=== PATIENT | female | born 1940 | race Two or more races ===

== ENCOUNTER 2020-04-09 15:42 | Inpatient (IN) ==
--- NOTE | 2020-04-09 16:10 | ERNOTE ---
Dyspnea - General Presenting Symptoms: shortness of breath Time Seen by Provider: 04/09/20 15:56 Source: patient, [facility] records Exam Limitations: no limitations - Immun/Allergies/Home Medications Immunizations: IMMUNIZATION HX Immunizations Up to Date Yes History of Influenza Vaccine Yes Hx Pneumococcal Vaccination No Allergies/Adverse Reactions: Allergies Penicillins Allergy (Unknown, Verified 04/09/20 15:55) [facility]- unknown allergy pneumococcal vaccine Allergy (Unknown, Verified 04/09/20 15:55) [facility]- unknown allergy Home Medications: HOME MEDICATIONS acetaminophen 325 mg tablet 650 mg PO Q6H PRN #0.1 tab 04/02/20 [Last Taken Unknown] albuterol sulfate 90 mcg/actuation aerosol inhaler 2 inh IH Q4H PRN #0.1 g 04/02/20 [Last Taken Unknown] aspirin 81 mg tablet,delayed release 81 mg PO DAILY #0.1 tab 04/02/20 [Last Taken Unknown] bisacodyl 10 mg rectal suppository 10 mg [place] DAILY PRN #0.1 ea 04/02/20 [Last Taken Unknown] budesonide-formoterol HFA 160 mcg-4.5 mcg/actuation aerosol inhaler 2 puff IH BID #0.1 g 04/02/20 [Last Taken Unknown] cholecalciferol (vitamin D3) 250 mcg (10,000 unit) capsule 10,000 unit PO DAILY #0.1 cap 04/02/20 [Last Taken Unknown] folic acid 1 mg tablet 1 mg PO DAILY #0.1 tab 04/02/20 [Last Taken Unknown] melatonin 3 mg tablet 3 mg PO HS PRN #0.1 tab 04/02/20 [Last Taken Unknown] metoprolol tartrate 50 mg tablet 50 mg PO BID #0.1 tab 04/02/20 [Last Taken Unknown] pantoprazole 40 mg tablet,delayed release 40 mg PO DAILY #0.1 tab 04/02/20 [Last Taken Unknown] Furosemide [Lasix] 40 mg PO DAILY 04/09/20 [Last Taken Unknown] - History of Present Illness Narrative: Patient brought by EMS from [facility] with complaint of shortness of breath. Reports that the patient's shortness of breath started yesterday, worsening today. 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 Absent: cough Cardiology: Present: chest pain - pressure, edema Genitourinary: Absent: frequency, dysuria Musculoskeletal: Absent: back pain, muscle pain Skin: Absent: rash Neurological: Present: headache - occasonally, as is usual for her Endocrine: Absent: excessive sweating Medical History (Last Reviewed 04/09/20 @ 16:04 by Lalito Johnson DO) Solitary pulmonary nodule (Acute) Generalized enlarged lymph nodes (Acute) Localized enlarged lymph nodes (Acute) Tachycardia (Acute) Mastodynia (Acute) Unspecified asthma, uncomplicated (Acute) Other cardiomyopathies (Acute) Morbid (severe) obesity due to excess calories (Acute) Secondary hyperparathyroidism, not elsewhere classified (Acute) Polycythemia vera (Acute) Acute and chronic respiratory failure with hypoxia (Acute) Unspecified diastolic (congestive) heart failure (Acute) Malignant neoplasm of upper lobe, right bronchus or lung (Acute) Left ventricular failure, unspecified (Acute) Chronic myeloproliferative disease (Acute) Thrombocytopenia (Acute) Pneumonia (Acute) Adenocarcinoma (Acute) lung, right upper lobe Adenopathy (Acute) Benign hypertension (Acute) CHF (congestive heart failure) (Acute) CKD (chronic kidney disease) stage 3, GFR 30-59 ml/min (Acute) Hilar adenopathy (Acute) Iron deficiency anemia (Acute) Morbidly obese (Acute) Osteoarthritis (Acute) Proteinuria (Acute) Vitamin D deficiency (Acute) Visual hallucinations (Chronic) Disoriented (Chronic) Mild cognitive disorder (Chronic) Schizoid personality disorder (Chronic) Persistent mood disorder (Chronic) Alzheimer disease (Chronic) Surgical History: Surgical History (Last Reviewed 04/09/20 @ 16:04 by Lalito Johnson DO) History of tonsillectomy and adenoidectomy (Resolved) Onset Date: Unknown History of knee surgery (Resolved) Onset Date: Unknown bilateral knee replacement History of cardiac catheterization (Resolved) Onset Date: ~04/2017 Family History: Family History (Last Reviewed 04/09/20 @ 16:04 by Lalito Johnson DO) Father CAD (coronary artery disease) Mother CAD (coronary artery disease) Kidney disease Social History: (Last Reviewed 04/09/20 @ 16:04 by Lalito Johnson DO) Social History: [facility]: Yes [facility] comment: [facility] Marital status: Single Physical Exam - Physical Exam General Appearance: Present: wd/wn, alert, no apparent distress Head Exam: Present: normal inspection, no evidence of injury Neck: Present: normal inspection, nontender Respiratory: Present: no respiratory distress, normal breath sounds, lungs clear Cardiovascular/Chest: Present: regular rate, rhythm, extra beats, systolic murmur - 4/6 soft Gastrointestinal/Abdominal: Present: normal bowel sounds, nontender, nondistended Extremity Exam: Present: normal inspection, extremity edema - 3+ bilateral LE Neurological Exam: Present: alert, oriented, normal mood/affect, no motor/ sensory deficits Skin Exam: Present: warm/dry Progress - Results and Orders Patient's Lab Results:: I have reviewed the patient's lab results. Results and Orders: Laboratory Tests 04/09/20 04/09/20 04/09/20 16:17 16:17 16:17 WBC 14.3 H Hgb 8.4 L Hct 27.4 L Plt Count 456 H Sodium 141 Potassium 4.2 Chloride 105 BUN 19 Creatinine 1.29 Random Glucose 103 Lactic Acid, Venous 0.8 Calcium 8.4 Total Bilirubin 0.5 AST 18 ALT 11 L Alkaline Phosphatase 85 Troponin I Less than 0.017 B-Natriuretic Peptide 5730 H SARS-CoV-2 (PCR) 04/09/20 17:14 WBC Hgb Hct Plt Count Sodium Potassium Chloride BUN Creatinine Random Glucose Lactic Acid, Venous Calcium Total Bilirubin AST ALT Alkaline Phosphatase Troponin I B-Natriuretic Peptide SARS-CoV-2 (PCR) Not detected - Vital Signs Vital Signs: Vital Signs 04/09/20 15:42 Temperature 36.6 C Pulse Rate 106 H Respiratory Rate 38 H Blood Pressure 143/83 O2 Sat by Pulse Oximetry 90 L - EKG EKG #1 EKG: supraventricular tachycardia - sinus, premature ventricular contraction EKG read: Interp. by me - X-Ray X-Ray #1 X-Ray: chest Interpretation: Reviewed by me X-ray Comments: Findings: Diffuse bilateral multifocal airspace consolidation right upper lobe worse than the remaining lung pittman. Findings consistent with multifocal pneumonia. Correlate for Covid status. No pleural effusion or pneumothorax. Cardiac silhouette and pulmonary vasculature are normal for technique. The o sseous structures demonstrate degenerative changes of the spine and shoulders. IMPRESSION: DIFFUSE BILATERAL MULTIFOCAL PNEUMONIA MOST PRONOUNCED IN THE RIGHT UPPER LOBE Electronically signed by Bo Jack D.O. - Progress/Reassessment Chief Complaint: Dyspnea Progress Note-Subjective: 04/09/20 19:[address] Martinez she agrees with admit she requests DuoNeb treatments every 6 and Levaquin for pneumonia. Departure Clinical Impression: Pneumonia Qualifiers: Pneumonia type: due to unspecified organism Laterality: right Lung location: upper lobe of lung Qualified Code(s): J18.9 - Pneumonia, unspecified organism CHF (congestive heart failure) Qualifiers: Heart failure type: systolic Heart failure chronicity: acute on chronic Qualified Code(s): I50.23 - Acute on chronic systolic (congestive) heart failure - Departure Disposition: Still a patient Condition: Fair
[2020-04-09 16:22] LABS: Hematocrit 27.4 % (37.0-47.0); Hemoglobin 8.4 gm/dL (12.5-16.0); Mean Corpuscular Hemoglobin 30.7 pg (27-31); Mean Corpuscular Hgb Conc 30.7 g/dl (32-36); Mean Platelet Volume 9.2 fl (8-12.5); Platelet Count 456 K/mm3 (150-450); Red Blood Count 2.74 M/mm3 (4.2-5.4); White Blood Count 14.3 K/mm3 (4.0-10.5)
[2020-04-09 16:27] LABS: Total Cells Counted 100
[2020-04-09 16:43] LABS: ALT 11 U/L (19-67); AST 18 U/L (0-48); Albumin * 2.1 gm/dl (3.4-5.0); Alkaline Phosphatase * 85 U/L (50-170); Anion Gap 9.1 mmol/L (6.8-13.8); BNP * 5730 pg/mL (5-550); BUN/Creatinine Ratio 14.7 (9.0-21.6); Bilirubin, Total 0.5 mg/dL (0.0-1.1); Blood Urea Nitrogen 19 mg/dL (3-23); Ca. Corrected For Albumin 9.6 mg/dL (8.4-10.2); Calcium * 8.4 mg/dL (7.9-10.9); Carbon Dioxide 31.1 mmol/L (24-32.6); Chloride 105 mmol/L (97-106); Glucose * 103 mg/dL (70-110); Potassium 4.2 mmol/L (3.4-4.6); Sodium 141 mmol/L (132-142); Total Protein 6.2 gm/dL (6.2-8.2); Troponin I Less than 0.017 ng/mL (0.00-0.10)
[2020-04-09 17:04] LABS: Atypical (Reactive) Lymph 11 % (0-2); Band 3 % (0-2.0); Basophil 1 % (0-1); Eosinophil 2 % (0-3); Lymphocyte 23 % (20-51); Monocyte 1 % (0-9); Neutrophil 59 % (42-75); Neutrophil # 8.4 K/mm3 (1.3-6.0)
[2020-04-09 17:06] LABS: Giant Platelets Trace; Hypochromia 1+; Platelet Estimate Increased (NORMAL); Polychromasia 1+
[2020-04-09 17:07] LABS: Poikilocytosis Trace
[2020-04-09] MEDS ORDERED: FUROSEMIDE 10 MG/ML VIAL IV ONE ×2 (18:41→21:05)
[2020-04-09] MEDS ORDERED: ALBUTEROL SULFATE/IPRATROPIUM 3 ML NEBU IH ONE (18:59)
[2020-04-09] MEDS ORDERED: LEVOFLOXACIN IN DEXTROSE 5 % 500 MG/100 ML BAG IV SCH (19:00)
[2020-04-09] MEDS ORDERED: guaiFENesin 100 MG/5 ML SYRUP PO PRN (20:02)
[2020-04-09] MEDS ORDERED: MELATONIN 3,000 MCG TABLET PO PRN (20:03)
[2020-04-09] MEDS ORDERED: BISACODYL 10 MG SUPP.RECT RC PRN (20:03)
[2020-04-09] MEDS ORDERED: ALBUTEROL SULFATE 200 PUFF INHALER IH PRN (20:03)
[2020-04-09] MEDS ORDERED: FUROSEMIDE 10 MG/ML VIAL IV SCH (20:15)
[2020-04-09] MEDS: METOPROLOL TARTRATE 50 MG TABLET PO SCH (20:43)
[2020-04-09] MEDS: FOLIC ACID 1 MG TABLET PO SCH (20:43)
[2020-04-09] MEDS: ENOXAPARIN SODIUM 40 MG/0.4 ML SYRG SC SCH (20:44)
[2020-04-09] MEDS: PANTOPRAZOLE SODIUM 20 MG TABLET.DR PO SCH (20:44)
--- NOTE | 2020-04-09 21:05 | HP ---
Chief Complaint - Chief Complaint Date of Service: 04/09/20 Time of Service: 20:23 Chief Complaint: I have shortness of breath and swollen feet since yesterday History of Present Illness: 80-year-old female with past medical history of morbid obesity, CHF, hypertension, CKD 3, bronchial asthma, dementia, lung cancer, recurrent pneumonia who was evaluated in the ER after the patient was brought in by EMS from the [facility] for worsening dyspnea and tachypnea that started yesterday afternoon. Patient reports she was recently transferred to the [facility] from the rehab facility in [place] for fdc care. She reports since arriving at the Center there has been confusion with her medications and she has not been giving her routine dose of Lasix. As a result she developed significant pedal edema and describes heaviness and swelling in her lower extremities. She also reports that she has been having difficulty breathing but thought she was getting better until yesterday afternoon when she was noted to have significant tachypnea by nursing staff. She reports being restarted on her Lasix yesterday and was given a dose which she thought would help with her symptoms but instead of getting better she got worse. Patient was found to be hypoxic with oxygen saturation below 90 so EMS was called and she was transported to the ER. Once in the ER she was found to be persistently tachypneic and hypoxic so she was placed on oxygen by nasal cannula, the patient was also treated with a dose of Lasix and a breathing treatment. Chest x-ray revealed a multifocal pneumonia so she was also started on IV antibiotics. The patient had a bout of pneumonia back in February and was treated with antibiotics and she subsequently improved. She denies any fever chills or body ache and says the majority of her symptoms involves her breathing and the swelling in her feet. Patient was tested for COVID-19 but was found to be negative. Medical History (Last Reviewed 04/09/20 @ 16:04 by Lalito Johnson DO) Solitary pulmonary nodule (Acute) Generalized enlarged lymph nodes (Acute) Localized enlarged lymph nodes (Acute) Tachycardia (Acute) Mastodynia (Acute) Unspecified asthma, uncomplicated (Acute) Other cardiomyopathies (Acute) Morbid (severe) obesity due to excess calories (Acute) Secondary hyperparathyroidism, not elsewhere classified (Acute) Polycythemia vera (Acute) Acute and chronic respiratory failure with hypoxia (Acute) Unspecified diastolic (congestive) heart failure (Acute) Malignant neoplasm of upper lobe, right bronchus or lung (Acute) Left ventricular failure, unspecified (Acute) Chronic myeloproliferative disease (Acute) Thrombocytopenia (Acute) Pneumonia (Acute) Adenocarcinoma (Acute) lung, right upper lobe Adenopathy (Acute) Benign hypertension (Acute) CHF (congestive heart failure) (Acute) CKD (chronic kidney disease) stage 3, GFR 30-59 ml/min (Acute) Hilar adenopathy (Acute) Iron deficiency anemia (Acute) Morbidly obese (Acute) Osteoarthritis (Acute) Proteinuria (Acute) Vitamin D deficiency (Acute) Visual hallucinations (Chronic) Disoriented (Chronic) Mild cognitive disorder (Chronic) Schizoid personality disorder (Chronic) Persistent mood disorder (Chronic) Alzheimer disease (Chronic) Surgical History: Surgical History (Last Reviewed 04/09/20 @ 16:04 by Lalito Johnson DO) History of tonsillectomy and adenoidectomy (Resolved) Onset Date: Unknown History of knee surgery (Resolved) Onset Date: Unknown bilateral knee replacement History of cardiac catheterization (Resolved) Onset Date: ~04/2017 Family History: Family History (Last Reviewed 04/09/20 @ 16:04 by Lalito Johnson DO) Father CAD (coronary artery disease) Mother CAD (coronary artery disease) Kidney disease Social History: (Last Reviewed 04/09/20 @ 16:04 by Lalito Johnson DO) Social History: [facility]: Yes fci comment: [facility] Marital status: Single Peds Patient Hx - Developmental: No Pertinent Hx Peds Patient Hx - Medical: No Pertinent Hx Peds Patient Hx - Cardiac/Respiratory: No Pertinent Hx Peds Patient Hx - Surgical: No Surgical History Patient History - Cancer: Lung Review Of Systems (GEN) - Review of Systems Generalized/Overall Review: Present: Fatigue EENTM: Present: No Symptoms Reported Respiratory: Present: Shortness of Breath Cardiac: Present: Edema Abdominal: Present: No Symptoms Reported Genitourinary: Present: No Symptoms Reported Musculoskeletal: Present: No Symptoms Reported Neurological: Present: No Symptoms Reported Skin: Present: No Symptoms Reported Endocrine: Present: No Symptoms Reported Immunizations: IMMUNIZATION HX Immunizations Up to Date Yes History of Influenza Vaccine Yes Hx Pneumococcal Vaccination No Allergies/Adverse Reactions: Allergies Allergy/AdvReac Type Severity Reaction Status Date / Time Penicillins Allergy Unknown [facility]- Verified 04/09/20 15:55 unknown allergy pneumococcal vaccine Allergy Unknown [facility]- Verified 04/09/20 15:55 unknown allergy Home Medications: HOME MEDICATIONS acetaminophen 325 mg tablet 650 mg PO Q6H PRN #0.1 tab 04/02/20 [Last Taken Unknown] albuterol sulfate 90 mcg/actuation aerosol inhaler 2 inh IH Q4H PRN #0.1 g 04/02/20 [Last Taken Unknown] aspirin 81 mg tablet,delayed release 81 mg PO DAILY #0.1 tab 04/02/20 [Last Taken Unknown] bisacodyl 10 mg rectal suppository 10 mg [place] DAILY PRN #0.1 ea 04/02/20 [Last Taken Unknown] budesonide-formoterol HFA 160 mcg-4.5 mcg/actuation aerosol inhaler 2 puff IH BID #0.1 g 04/02/20 [Last Taken Unknown] cholecalciferol (vitamin D3) 250 mcg (10,000 unit) capsule 10,000 unit PO DAILY #0.1 cap 04/02/20 [Last Taken Unknown] folic acid 1 mg tablet 1 mg PO DAILY #0.1 tab 04/02/20 [Last Taken Unknown] melatonin 3 mg tablet 3 mg PO HS PRN #0.1 tab 04/02/20 [Last Taken Unknown] metoprolol tartrate 50 mg tablet 50 mg PO BID #0.1 tab 04/02/20 [Last Taken Unknown] pantoprazole 40 mg tablet,delayed release 40 mg PO DAILY #0.1 tab 04/02/20 [Last Taken Unknown] Furosemide [Lasix] 40 mg PO DAILY 04/09/20 [Last Taken Unknown] Exam - Exam Vital Signs: Vital Signs - Last Taken Temp 36.2 C 04/09/20 20:15 Pulse 117 H 04/09/20 20:15 Resp 22 H 04/09/20 20:15 BP 116/70 04/09/20 20:15 Pulse Ox 92 L 04/09/20 20:15 Constitutional: Present: Alert, Oriented x3, Cooperative, Well developed, Well nourished, No distress, Elderly, Morbidly obese ENT Exam: Present: normal ENT inspection, hearing grossly normal Eye Exam: bilateral eye: normal inspection, PERRL, EOMI Neck: Present: non-tender, full range of motion, supple, normal inspection, trachea midline Back Exam: Present: normal inspection, no CVA tenderness, no vertebral tenderness Breasts: Present: Exam deferred, Nontender Respiratory: Present: chest non-tender, accessory muscle use, wheezing - Expiratory wheezes at bases bilaterally Cardiovascular/Chest: Present: regular rate, rhythm, no chest tenderness, no murmur, no rub, JVD, edema Peripheral Pulses: dorsalis-pedis (R): 2+, dorsalis-pedis (L): 2+ Abdomen: Present: Normal bowel sounds, soft, nontender, nondistended, no rebound tenderness, no masses, obese /Rectal: Present: Exam deferred Extremity: Present: lower extremity edema, pedal edema - Jones 2+ Skin Exam: Present: normal color, warm/dry Lymphatic: Present: no adenopathy Neurologic: 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: 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 and emergency 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 II-XII nml as tested, no motor/sensory deficits, alert, normal mood/affect, oriented x 3 Appearance: Present: appropriate appearance, appropriate insight, neat, no memory impairment Eye contact: Present: cooperative, good eye contact, normal speech Thoughts: Present: normal thought pattern, no apparent hallucination Diagnostic Studies: Abnormal Lab Results 04/09/20 04/09/20 Range/Units 16:17 16:17 WBC 14.3 H (4.0-10.5) K/mm3 RBC 2.74 L (4.2-5.4) M/mm3 Hgb 8.4 L (12.5-16.0) gm/dL Hct 27.4 L (37.0-47.0) % MCHC 30.7 L (32-36) g/dl RDW 20.0 H (11.5-14.0) % Plt Count 456 H (150-450) K/mm3 Band Neuts % (Manual) 3 H (0-2.0) % Neutrophils # (Manual) 8.4 H (1.3-6.0) K/mm3 Atypic/Reactive Lymphs 11 H (0-2) % Platelet Estimate Increased H (NORMAL) Est GFR (Non-Af Amer) 42 L (60-130) mL/min ALT 11 L (19-67) U/L B-Natriuretic Peptide 5730 H (5-550) pg/mL Albumin 2.1 L (3.4-5.0) gm/dl Laboratory Results WBC 14.3 K/mm3 (4.0-10.5) H 04/09/20 16:17 RBC 2.74 M/mm3 (4.2-5.4) L 04/09/20 16:17 Hgb 8.4 gm/dL (12.5-16.0) L 04/09/20 16:17 Hct 27.4 % (37.0-47.0) L 04/09/20 16:17 MCV 100.0 fl (78-100) 04/09/20 16:17 MCH 30.7 pg (27-31) 04/09/20 16:17 MCHC 30.7 g/dl (32-36) L 04/09/20 16:17 RDW 20.0 % (11.5-14.0) H 04/09/20 16:17 Plt Count 456 K/mm3 (150-450) H 04/09/20 16:17 MPV 9.2 fl (8-12.5) 04/09/20 16:17 Neutrophils % (Manual) 59 % (42-75) 04/09/20 16:17 Band Neuts % (Manual) 3 % (0-2.0) H 04/09/20 16:17 Lymphocytes % (Manual) 23 % (20-51) 04/09/20 16:17 Monocytes % (Manual) 1 % (0-9) 04/09/20 16:17 Eosinophils % (Manual) 2 % (0-3) 04/09/20 16:17 Basophils % (Manual) 1 % (0-1) 04/09/20 16:17 Neutrophils # (Manual) 8.4 K/mm3 (1.3-6.0) H 04/09/20 16:17 Lymphocytes # (Manual) 3.3 k/mm3 (1.5-3.5) 04/09/20 16:17 Monocytes # (Manual) 0.1 k/mm3 (0.0-1.0) 04/09/20 16:17 Eosinophils # (Manual) 0.3 k/mm3 (0.0-0.7) 04/09/20 16:17 Basophils # (Manual) 0.1 k/mm3 (0.0-0.1) 04/09/20 16:17 Nucleated RBCs 1.0 % (0-1) 04/09/20 16:17 Atypic/Reactive Lymphs 11 % (0-2) H 04/09/20 16:17 Platelet Estimate Increased (NORMAL) H 04/09/20 16:17 Giant Platelets Trace 04/09/20 16:17 Polychromasia 1+ 04/09/20 16:17 Hypochromasia 1+ 04/09/20 16:17 Poikilocytosis Trace 04/09/20 16:17 Sodium 141 mmol/L (132-142) 04/09/20 16:17 Plasma Sodium 141 mmol/L (130-142) 04/09/20 16:17 Potassium 4.2 mmol/L (3.4-4.6) 04/09/20 16:17 Chloride 105 mmol/L (97-106) 04/09/20 16:17 Carbon Dioxide 31.1 mmol/L (24-32.6) 04/09/20 16:17 Anion Gap 9.1 mmol/L (6.8-13.8) 04/09/20 16:17 BUN 19 mg/dL (3-23) 04/09/20 16:17 Creatinine 1.29 mg/dL (0.4-1.4) 04/09/20 16:17 Est GFR (Non-Af Amer) 42 mL/min (60-130) L 04/09/20 16:17 BUN/Creatinine Ratio 14.7 (9.0-21.6) 04/09/20 16:17 Random Glucose 103 mg/dL (70-110) 04/09/20 16:17 Lactic Acid, Venous 0.8 mmol/L (0.4-2.0) 04/09/20 16:17 Calcium 8.4 mg/dL (7.9-10.9) 04/09/20 16:17 Calcium Adj for Albumin 9.6 mg/dL (8.4-10.2) 04/09/20 16:17 Total Bilirubin 0.5 mg/dL (0.0-1.1) 04/09/20 16:17 AST 18 U/L (0-48) 04/09/20 16:17 ALT 11 U/L (19-67) L 04/09/20 16:17 Alkaline Phosphatase 85 U/L (50-170) 04/09/20 16:17 Troponin I Less than 0.017 ng/mL (0.00-0.10) 04/09/20 16:17 B-Natriuretic Peptide 5730 pg/mL (5-550) H 04/09/20 16:17 Total Protein 6.2 gm/dL (6.2-8.2) 04/09/20 16:17 Albumin 2.1 gm/dl (3.4-5.0) L 04/09/20 16:17 SARS-CoV-2 (PCR) Not detected (NotDetected) 04/09/20 17:14 Assessment/Plan - Narrative Narrative: Px was admitted to [facility] for a diagnosis of acute multifocal pneumonia and decompensated CHF and hypoxia. She has been taken to room and is currently being treated with breathing treatments [id number] and IV antibiotics. The patient has been restarted on her Lasix which she will be receiving every 12 hours to address her CHF. We will keep her on oxygen and placed on a property assessment monitor for close monitoring. Currently she appears comfortable but is still noted to be tachypneic so we will give her a breathing treatment in order to address her respirations. - Assessment/Plan (1) Unspecified diastolic (congestive) heart failure Problem: Acute (2) Recurrent pneumonia Problem: Acute (3) Decompensated heart failure Problem: Acute (4) Hypoxia Problem: Acute (5) Tachypnea on examination Problem: Acute (6) Morbid (severe) obesity due to excess calories Problem: Acute (7) CKD (chronic kidney disease) stage 3, GFR 30-59 ml/min Problem: Acute (8) Iron deficiency anemia Problem: Acute (9) Morbidly obese Problem: Acute (10) Alzheimer disease Problem: Chronic
[2020-04-09] MEDS: ALBUTEROL SULFATE/IPRATROPIUM 3 ML NEBU IH SCH (23:22)
[2020-04-09] MEDS: FLUTICASONE PROPION/SALMETEROL 14 PUFF DISK.W.DEV IH SCH (23:27)
[2020-04-10] MEDS ORDERED: ALBUTEROL SULFATE/IPRATROPIUM 3 ML NEBU IH SCH (01:00)
[2020-04-10] MEDS: ALBUTEROL SULFATE/IPRATROPIUM 3 ML NEBU IH SCH ×2 (03:07→06:04)
[2020-04-10 06:32] LABS: Hematocrit 25.1 % (37.0-47.0); Mean Cell Volume 99.6 fl (78-100); Mean Corpuscular Hemoglobin 30.2 pg (27-31); Mean Corpuscular Hgb Conc 30.3 g/dl (32-36); Mean Platelet Volume 9.4 fl (8-12.5); Platelet Count 498 K/mm3 (150-450); Red Blood Count 2.52 M/mm3 (4.2-5.4); Red Cell Distribution Width 19.9 % (11.5-14.0)
[2020-04-10 06:37] LABS: Albumin * 1.9 gm/dl (3.4-5.0); Anion Gap 8.7 mmol/L (6.8-13.8); BUN/Creatinine Ratio 14.4 (9.0-21.6); Bilirubin, Total 0.5 mg/dL (0.0-1.1); Ca. Corrected For Albumin 9.9 mg/dL (8.4-10.2); Calcium * 8.5 mg/dL (7.9-10.9); Carbon Dioxide 31.9 mmol/L (24-32.6); Potassium 3.6 mmol/L (3.4-4.6); Total Protein 5.9 gm/dL (6.2-8.2)
[2020-04-10] MEDS ORDERED: FUROSEMIDE 10 MG/ML VIAL IV STA (07:03)
[2020-04-10 07:17] LABS: Hemoglobin 7.6 gm/dL (12.5-16.0); Total Cells Counted 100
[2020-04-10 07:19] LABS: Band 1 % (0-2.0); Basophil 2 % (0-1); Eosinophil 5 % (0-3); Immature Granulocyte 1 (0-1); Lymphocyte 19 % (20-51); Monocyte 15 % (0-9); Neutrophil 57 % (42-75); Neutrophil # 6.8 K/mm3 (1.3-6.0)
[2020-04-10 07:21] LABS: Ovalocytes Trace; Poikilocytosis Trace
[2020-04-10 07:22] LABS: Platelet Estimate Normal (NORMAL)
[2020-04-10] MEDS: FLUTICASONE PROPION/SALMETEROL 14 PUFF DISK.W.DEV IH SCH ×2 (07:36→19:56)
[2020-04-10] MEDS: PANTOPRAZOLE SODIUM 20 MG TABLET.DR PO SCH ×2 (07:37→20:05)
[2020-04-10] MEDS: FUROSEMIDE 10 MG/ML VIAL IV SCH ×2 (08:01→19:56)
--- NOTE | 2020-04-10 08:18 | PN ---
Subjective - Date and Time Seen Date: 04/10/20 Time: 06:50 Subjective Narrative: 80-year-old female with past medical history of morbid obesity, CHF (she does not remember her last echo), hypertension, CKD 3, bronchial asthma, dementia, lung cancer (2 spots removed from right lung two or three years ago, radiation, most recent chest CT clear of cancer), and recurrent pneumonia (most recently at [facility] last month)who was evaluated in the [facility] ER last night after the patient was brought in by EMS from the [facility] for worsening dyspnea and tachypnea that started 2 days ago. She was discharged from [facility] to [facility] for rehab about 3 weeks ago. Since arriving at the Center she says she hasn't been given her usual lasix because it wasn't on the [facility] discharge instructions. While at [facility] she developed bilateral lower leg edema. 2 days ago she was noted to have significant tachypnea by nursing staff. She was restarted on her Lasix yesterday and she thought it would help her symptoms, but instead of getting better she got worse. At no time did she have fever, chills or sweats. At the assisted she was hypoxic with oxygen saturation below 90 and labored breathing, so EMS was called and she was transported to the [facility] ER. In the ER she was found to be persistently tachypneic and hypoxic so she was placed on oxygen by nasal cannula. She was also treated with a dose of Lasix and a breathing treatment. Chest x-ray was consistent with a multifocal pneumonia so she was also started on IV Levaquin. She has not had much urine output following her IV dose of Lasix. Her physical exam this morning is more like CHF than pneumonia. Her ER BNP was over 5000. Her wbc count was slightly elevated at about 14,000. Her hgb in the ER was 8.4, identical to one about three weeks ago, but this morning it was 7.6. We will therefor watch her hgb more closely and start stools for OB. She was tested for COVID-19 in the [facility] ER yesterday but was found to be negative. This morning she says she feels about the same. Objective - Review of Systems Generalized/Overall Review: Reports: Weakness. Denies: Chills, Fever, Diaphoresis EENTM: Reports: No Symptoms Reported Respiratory: Reports: Shortness of Breath, Other - green. Denies: Cough Cardiac: Reports: Edema. Denies: Chest Pain Abdominal: Reports: No Symptoms Reported Genitourinary Symptoms: Reports: No Symptoms Reported Musculoskeletal Complaints: Reports: No Symptoms Reported Neurological: Denies: Anxiety, Depressed Skin: Reports: Bruising - cause unknown as reported by patient. Denies: Lesions, Rash Endocrine: Reports: Intolerance to Cold, Intolerance to Heat Misc: All systems neg except as marked - Vitals Vitals: Last Vital Signs Temp 36.7 C 04/10/20 07:19 Pulse 122 H 04/10/20 07:19 Resp 39 H 04/10/20 07:19 BP 122/68 04/10/20 07:19 Pulse Ox 93 04/10/20 07:19 - Abnormal Lab Findings Abnormal Lab Findings: Abnormal Lab Results 04/09/20 04/09/20 04/10/20 Range/Units 16:17 16:17 06:17 WBC 14.3 H 12.0 H (4.0-10.5) K/mm3 RBC 2.74 L 2.52 L (4.2-5.4) M/mm3 Hgb 8.4 L 7.6 L* (12.5-16.0) gm/dL Hct 27.4 L 25.1 L (37.0-47.0) % MCHC 30.7 L 30.3 L (32-36) g/dl RDW 20.0 H 19.9 H (11.5-14.0) % Plt Count 456 H 498 H (150-450) K/mm3 Band Neuts % (Manual) 3 H (0-2.0) % Lymphocytes % (Manual) 19 L (20-51) % Monocytes % (Manual) 15 H (0-9) % Eosinophils % (Manual) 5 H (0-3) % Basophils % (Manual) 2 H (0-1) % Neutrophils # (Manual) 8.4 H 6.8 H (1.3-6.0) K/mm3 Monocytes # (Manual) 1.8 H (0.0-1.0) k/mm3 Basophils # (Manual) 0.2 H (0.0-0.1) k/mm3 Nucleated RBCs 3.0 H (0-1) % Atypic/Reactive Lymphs 11 H (0-2) % Platelet Estimate Increased H (NORMAL) Est GFR (Non-Af Amer) 42 L (60-130) mL/min ALT 11 L (19-67) U/L B-Natriuretic Peptide 5730 H (5-550) pg/mL Total Protein (6.2-8.2) gm/dL Albumin 2.1 L (3.4-5.0) gm/dl 04/10/20 Range/Units 06:17 WBC (4.0-10.5) K/mm3 RBC (4.2-5.4) M/mm3 Hgb (12.5-16.0) gm/dL Hct (37.0-47.0) % MCHC (32-36) g/dl RDW (11.5-14.0) % Plt Count (150-450) K/mm3 Band Neuts % (Manual) (0-2.0) % Lymphocytes % (Manual) (20-51) % Monocytes % (Manual) (0-9) % Eosinophils % (Manual) (0-3) % Basophils % (Manual) (0-1) % Neutrophils # (Manual) (1.3-6.0) K/mm3 Monocytes # (Manual) (0.0-1.0) k/mm3 Basophils # (Manual) (0.0-0.1) k/mm3 Nucleated RBCs (0-1) % Atypic/Reactive Lymphs (0-2) % Platelet Estimate (NORMAL) Est GFR (Non-Af Amer) 41 L (60-130) mL/min ALT 9 L (19-67) U/L B-Natriuretic Peptide (5-550) pg/mL Total Protein 5.9 L (6.2-8.2) gm/dL Albumin 1.9 L (3.4-5.0) gm/dl - Exam Constitutional: Present: Alert, Oriented x3, Cooperative, Well developed, Other - mildly dyspneic at rest with nasal canula O2., Obese ENT Exam: Present: normal ENT inspection, hearing grossly normal Neck: Present: normal inspection. Absent: lymphadenopathy (R), lymphadenopathy (L), thyromegaly Breasts: Present: Exam deferred Respiratory: Present: rales - bilateral basilar rales. no rhonci and no wheezing. Cardiovascular/Chest: Present: regular rate, rhythm, no murmur, JVD, tachycardia, gallop/S3, edema - 2-3 + edema both lower legs Abdomen: Present: Normal bowel sounds, soft, nontender, nondistended, no hepatospenomegaly, no masses /Rectal: Present: Exam deferred Extremity: Present: lower extremity edema Skin Exam: Present: warm/dry, no cyanosis, other - upper and lower extremity brusing Lymphatic: Present: no adenopathy Neurologic: Present: normal mood/affect, oriented x 3 Appearance: Present: appropriate appearance, appropriate insight, no memory impairment Eye contact: Present: cooperative, good eye contact, normal speech Thoughts: Present: normal thought pattern Assessment/Plan - Problems/Diagnosis (1) CHF (congestive heart failure) Problem: Acute Qualifiers: Heart failure type: systolic Heart failure chronicity: acute on chronic Qualified Code(s): I50.23 - Acute on chronic systolic (congestive) heart failure Narrative: IV lasix, echo, monitor I&O and labs. clinically, has acute CHF, but CXR reported out as multifocal pneumonia. We will therefor also treat for pneumonia with Levaquin. (2) Hypoxia Problem: Acute Narrative: Supplemental O2 to keep O2 sat more than 90% (3) Pneumonia Problem: Acute Qualifiers: Pneumonia type: due to unspecified organism Laterality: bilateral Lung location: unspecified part of lung Qualified Code(s): J18.9 - Pneumonia, unspecified organism Narrative: minimally elevated wbc, no fever, chills or sweats. CXR reported as pneumonia. Will treat with Levofloxacin (4) Anemia Problem: Acute Qualifiers: Anemia type: unspecified type Qualified Code(s): D64.9 - Anemia, unspecified Narrative: possibly acute on chronic. Hgb yesterday 8.4, the same as three weeks ago. This morning 7.6 Will follow closely and do stool OB (5) Chronic respiratory failure with hypoxia Problem: Acute Narrative: O2 (6) Hypoalbuminemia Problem: Acute Narrative: nutritional supplements (7) Vitamin D deficiency Problem: Acute Narrative: start Vitamin D (8) Malignant neoplasm of upper lobe, right bronchus or lung Problem: Chronic Narrative: so far non recurrent. no immediate plans for this admission (9) BMI 39.0-39.9,adult Problem: Acute Narrative: in the future, consider NENA and/or Pickwickian syndrome.
[2020-04-10] MEDS: FOLIC ACID 1 MG TABLET PO SCH (08:20)
[2020-04-10] MEDS: ASPIRIN 81 MG TABLET.DR PO SCH (08:20)
[2020-04-10] MEDS: METOPROLOL TARTRATE 50 MG TABLET PO SCH (08:21)
[2020-04-10] MEDS ORDERED: CHOLECALCIFEROL 5,000 UNIT TABLET PO SCH (09:00)
--- NOTE | 2020-04-10 10:18 | PN ---
Subjective - Date and Time Seen Date: 04/10/20 Time: 10:14 Subjective Narrative: reviewed records from [facility] from Feb 2020 including H&P, Discharge Summary, EKGs and Echo report. echo shows ONLY mild to moderate TR. nothing else. will back off dose of lasix. increases the chance of pneumonia as the cause for her current problems, although her BNP WAS over 5000. time required for record review 20 minutes. Objective - Vitals Vitals: Last Vital Signs Temp 36.7 C 04/10/20 07:19 Pulse 109 H 04/10/20 08:55 Resp 39 H 04/10/20 07:19 BP 109/53 04/10/20 09:04 Pulse Ox 93 04/10/20 07:25 - Abnormal Lab Findings Abnormal Lab Findings: Abnormal Lab Results 04/09/20 04/09/20 04/10/20 Range/Units 16:17 16:17 06:17 WBC 14.3 H 12.0 H (4.0-10.5) K/mm3 RBC 2.74 L 2.52 L (4.2-5.4) M/mm3 Hgb 8.4 L 7.6 L* (12.5-16.0) gm/dL Hct 27.4 L 25.1 L (37.0-47.0) % MCHC 30.7 L 30.3 L (32-36) g/dl RDW 20.0 H 19.9 H (11.5-14.0) % Plt Count 456 H 498 H (150-450) K/mm3 Band Neuts % (Manual) 3 H (0-2.0) % Lymphocytes % (Manual) 19 L (20-51) % Monocytes % (Manual) 15 H (0-9) % Eosinophils % (Manual) 5 H (0-3) % Basophils % (Manual) 2 H (0-1) % Neutrophils # (Manual) 8.4 H 6.8 H (1.3-6.0) K/mm3 Monocytes # (Manual) 1.8 H (0.0-1.0) k/mm3 Basophils # (Manual) 0.2 H (0.0-0.1) k/mm3 Nucleated RBCs 3.0 H (0-1) % Atypic/Reactive Lymphs 11 H (0-2) % Platelet Estimate Increased H (NORMAL) Est GFR (Non-Af Amer) 42 L (60-130) mL/min ALT 11 L (19-67) U/L B-Natriuretic Peptide 5730 H (5-550) pg/mL Total Protein (6.2-8.2) gm/dL Albumin 2.1 L (3.4-5.0) gm/dl 04/10/20 Range/Units 06:17 WBC (4.0-10.5) K/mm3 RBC (4.2-5.4) M/mm3 Hgb (12.5-16.0) gm/dL Hct (37.0-47.0) % MCHC (32-36) g/dl RDW (11.5-14.0) % Plt Count (150-450) K/mm3 Band Neuts % (Manual) (0-2.0) % Lymphocytes % (Manual) (20-51) % Monocytes % (Manual) (0-9) % Eosinophils % (Manual) (0-3) % Basophils % (Manual) (0-1) % Neutrophils # (Manual) (1.3-6.0) K/mm3 Monocytes # (Manual) (0.0-1.0) k/mm3 Basophils # (Manual) (0.0-0.1) k/mm3 Nucleated RBCs (0-1) % Atypic/Reactive Lymphs (0-2) % Platelet Estimate (NORMAL) Est GFR (Non-Af Amer) 41 L (60-130) mL/min ALT 9 L (19-67) U/L B-Natriuretic Peptide (5-550) pg/mL Total Protein 5.9 L (6.2-8.2) gm/dL Albumin 1.9 L (3.4-5.0) gm/dl Assessment/Plan - Problems/Diagnosis (1) CHF (congestive heart failure) Problem: Resolved Qualifiers: Heart failure type: systolic Heart failure chronicity: acute on chronic Qualified Code(s): I50.23 - Acute on chronic systolic (congestive) heart failure Narrative: echo from Feb 2020 shows only mild to moderate TR. NORMAL systolic function. will back off Lasix dose. (2) Hypoxia Problem: Acute (3) Pneumonia Problem: Acute Qualifiers: Pneumonia type: due to unspecified organism Laterality: bilateral Lung location: unspecified part of lung Qualified Code(s): J18.9 - Pneumonia, unspecified organism (4) Anemia Problem: Acute Qualifiers: Anemia type: unspecified type Qualified Code(s): D64.9 - Anemia, unspecified (5) Chronic respiratory failure with hypoxia Problem: Acute (6) Hypoalbuminemia Problem: Acute (7) Vitamin D deficiency Problem: Acute (8) Malignant neoplasm of upper lobe, right bronchus or lung Problem: Chronic (9) BMI 39.0-39.9,adult Problem: Acute (10) Tricuspid regurgitation Problem: Chronic Qualifiers: Cardiac valve disease etiology: etiology unspecified Qualified Code(s): I07.1 - Rheumatic tricuspid insufficiency Narrative: mild to moderate Echo [facility] Feb 2020. systolic function NORMAL
[2020-04-10] MEDS: LEVOFLOXACIN 750 MG TABLET PO SCH (10:57)
--- NOTE | 2020-04-10 11:11 | PN ---
Subjective - Date and Time Seen Date: 04/10/20 Time: 11:08 Objective - Vitals Vitals: Last Vital Signs Temp 36.5 C 04/10/20 10:37 Pulse 106 H 04/10/20 10:37 Resp 34 H 04/10/20 10:37 BP 122/63 04/10/20 10:37 Pulse Ox 94 04/10/20 10:37 - Abnormal Lab Findings Abnormal Lab Findings: Abnormal Lab Results 04/09/20 04/09/20 04/10/20 Range/Units 16:17 16:17 06:17 WBC 14.3 H 12.0 H (4.0-10.5) K/mm3 RBC 2.74 L 2.52 L (4.2-5.4) M/mm3 Hgb 8.4 L 7.6 L* (12.5-16.0) gm/dL Hct 27.4 L 25.1 L (37.0-47.0) % MCHC 30.7 L 30.3 L (32-36) g/dl RDW 20.0 H 19.9 H (11.5-14.0) % Plt Count 456 H 498 H (150-450) K/mm3 Band Neuts % (Manual) 3 H (0-2.0) % Lymphocytes % (Manual) 19 L (20-51) % Monocytes % (Manual) 15 H (0-9) % Eosinophils % (Manual) 5 H (0-3) % Basophils % (Manual) 2 H (0-1) % Neutrophils # (Manual) 8.4 H 6.8 H (1.3-6.0) K/mm3 Monocytes # (Manual) 1.8 H (0.0-1.0) k/mm3 Basophils # (Manual) 0.2 H (0.0-0.1) k/mm3 Nucleated RBCs 3.0 H (0-1) % Atypic/Reactive Lymphs 11 H (0-2) % Platelet Estimate Increased H (NORMAL) Est GFR (Non-Af Amer) 42 L (60-130) mL/min ALT 11 L (19-67) U/L B-Natriuretic Peptide 5730 H (5-550) pg/mL Total Protein (6.2-8.2) gm/dL Albumin 2.1 L (3.4-5.0) gm/dl 04/10/20 Range/Units 06:17 WBC (4.0-10.5) K/mm3 RBC (4.2-5.4) M/mm3 Hgb (12.5-16.0) gm/dL Hct (37.0-47.0) % MCHC (32-36) g/dl RDW (11.5-14.0) % Plt Count (150-450) K/mm3 Band Neuts % (Manual) (0-2.0) % Lymphocytes % (Manual) (20-51) % Monocytes % (Manual) (0-9) % Eosinophils % (Manual) (0-3) % Basophils % (Manual) (0-1) % Neutrophils # (Manual) (1.3-6.0) K/mm3 Monocytes # (Manual) (0.0-1.0) k/mm3 Basophils # (Manual) (0.0-0.1) k/mm3 Nucleated RBCs (0-1) % Atypic/Reactive Lymphs (0-2) % Platelet Estimate (NORMAL) Est GFR (Non-Af Amer) 41 L (60-130) mL/min ALT 9 L (19-67) U/L B-Natriuretic Peptide (5-550) pg/mL Total Protein 5.9 L (6.2-8.2) gm/dL Albumin 1.9 L (3.4-5.0) gm/dl Assessment/Plan - Problems/Diagnosis (1) CHF (congestive heart failure) Problem: Resolved Qualifiers: Heart failure type: systolic Heart failure chronicity: acute on chronic Qualified Code(s): I50.23 - Acute on chronic systolic (congestive) heart failure (2) Hypoxia Problem: Acute (3) Pneumonia Problem: Acute Qualifiers: Pneumonia type: due to unspecified organism Laterality: bilateral Lung location: unspecified part of lung Qualified Code(s): J18.9 - Pneumonia, unspecified organism (4) Anemia Problem: Acute Qualifiers: Anemia type: unspecified type Qualified Code(s): D64.9 - Anemia, unspecified (5) Chronic respiratory failure with hypoxia Problem: Acute (6) Hypoalbuminemia Problem: Acute (7) Vitamin D deficiency Problem: Acute (8) Malignant neoplasm of upper lobe, right bronchus or lung Problem: Chronic (9) BMI 39.0-39.9,adult Problem: Acute (10) Tricuspid regurgitation Problem: Chronic Qualifiers: Cardiac valve disease etiology: etiology unspecified Qualified Code(s): I07.1 - Rheumatic tricuspid insufficiency (11) (HFpEF) heart failure with preserved ejection fraction Problem: Chronic Qualifiers: Heart failure chronicity: acute on chronic Qualified Code(s): I50.33 - Acute on chronic diastolic (congestive) heart failure Narrative: echo 03/02 [facility] showed preserved left ventricular function. [facility] HFpEF risk calculator: 17% risk of dying in next 28 days, 55% risk in the next one year (12) Chronic myeloproliferative disease Problem: Chronic Narrative: this is the most likely reason for her anemia. we need to make sure she is followed by Hem/Onc
[2020-04-10] MEDS: DICLOFENAC SODIUM 100 APPL TUBE TP SCH ×3 (12:11→20:04)
--- NOTE | 2020-04-10 12:22 | PN ---
Subjective - Date and Time Seen Date: 04/10/20 Time: 12:20 Objective - Vitals Vitals: Last Vital Signs Temp 36.5 C 04/10/20 10:37 Pulse 106 H 04/10/20 10:37 Resp 34 H 04/10/20 10:37 BP 122/63 04/10/20 10:37 Pulse Ox 94 04/10/20 10:37 - Abnormal Lab Findings Abnormal Lab Findings: Abnormal Lab Results 04/09/20 04/09/20 04/10/20 Range/Units 16:17 16:17 06:17 WBC 14.3 H 12.0 H (4.0-10.5) K/mm3 RBC 2.74 L 2.52 L (4.2-5.4) M/mm3 Hgb 8.4 L 7.6 L* (12.5-16.0) gm/dL Hct 27.4 L 25.1 L (37.0-47.0) % MCHC 30.7 L 30.3 L (32-36) g/dl RDW 20.0 H 19.9 H (11.5-14.0) % Plt Count 456 H 498 H (150-450) K/mm3 Band Neuts % (Manual) 3 H (0-2.0) % Lymphocytes % (Manual) 19 L (20-51) % Monocytes % (Manual) 15 H (0-9) % Eosinophils % (Manual) 5 H (0-3) % Basophils % (Manual) 2 H (0-1) % Neutrophils # (Manual) 8.4 H 6.8 H (1.3-6.0) K/mm3 Monocytes # (Manual) 1.8 H (0.0-1.0) k/mm3 Basophils # (Manual) 0.2 H (0.0-0.1) k/mm3 Nucleated RBCs 3.0 H (0-1) % Atypic/Reactive Lymphs 11 H (0-2) % Platelet Estimate Increased H (NORMAL) Est GFR (Non-Af Amer) 42 L (60-130) mL/min ALT 11 L (19-67) U/L B-Natriuretic Peptide 5730 H (5-550) pg/mL Total Protein (6.2-8.2) gm/dL Albumin 2.1 L (3.4-5.0) gm/dl 04/10/20 Range/Units 06:17 WBC (4.0-10.5) K/mm3 RBC (4.2-5.4) M/mm3 Hgb (12.5-16.0) gm/dL Hct (37.0-47.0) % MCHC (32-36) g/dl RDW (11.5-14.0) % Plt Count (150-450) K/mm3 Band Neuts % (Manual) (0-2.0) % Lymphocytes % (Manual) (20-51) % Monocytes % (Manual) (0-9) % Eosinophils % (Manual) (0-3) % Basophils % (Manual) (0-1) % Neutrophils # (Manual) (1.3-6.0) K/mm3 Monocytes # (Manual) (0.0-1.0) k/mm3 Basophils # (Manual) (0.0-0.1) k/mm3 Nucleated RBCs (0-1) % Atypic/Reactive Lymphs (0-2) % Platelet Estimate (NORMAL) Est GFR (Non-Af Amer) 41 L (60-130) mL/min ALT 9 L (19-67) U/L B-Natriuretic Peptide (5-550) pg/mL Total Protein 5.9 L (6.2-8.2) gm/dL Albumin 1.9 L (3.4-5.0) gm/dl Assessment/Plan - Problems/Diagnosis (1) CHF (congestive heart failure) Problem: Resolved Qualifiers: Heart failure type: systolic Heart failure chronicity: acute on chronic Qualified Code(s): I50.23 - Acute on chronic systolic (congestive) heart failure (2) Hypoxia Problem: Acute (3) Pneumonia Problem: Acute Qualifiers: Pneumonia type: due to unspecified organism Laterality: bilateral Lung location: unspecified part of lung Qualified Code(s): J18.9 - Pneumonia, unspecified organism (4) Anemia Problem: Acute Qualifiers: Anemia type: unspecified type Qualified Code(s): D64.9 - Anemia, unspecified (5) Chronic respiratory failure with hypoxia Problem: Acute (6) Hypoalbuminemia Problem: Acute (7) Vitamin D deficiency Problem: Acute (8) Malignant neoplasm of upper lobe, right bronchus or lung Problem: Chronic (9) BMI 39.0-39.9,adult Problem: Acute (10) Tricuspid regurgitation Problem: Chronic Qualifiers: Cardiac valve disease etiology: etiology unspecified Qualified Code(s): I07.1 - Rheumatic tricuspid insufficiency (11) (HFpEF) heart failure with preserved ejection fraction Problem: Chronic Qualifiers: Heart failure chronicity: acute on chronic Qualified Code(s): I50.33 - Acute on chronic diastolic (congestive) heart failure (12) Chronic myeloproliferative disease Problem: Chronic (13) MSSA (methicillin susceptible Staphylococcus aureus) pneumonia Problem: Suspected Qualifiers: Laterality: bilateral Lung location: unspecified part of lung Qualified Code(s): J15.211 - Pneumonia due to Methicillin susceptible Staphylococcus aureus Narrative: In reviewing records, she had MSSA pneumonia which was treated in the hospital in [place] last month. There is no CXR showing complete resolution of the pneumonia. It is possible this admission is due to recurrent MSSA pneumonia.
[2020-04-10] MEDS: METOPROLOL TARTRATE 25 MG TABLET PO SCH ×2 (14:14→20:05)
[2020-04-10 14:30] LABS: Hematocrit 26.8 % (37.0-47.0); Hemoglobin 8.1 gm/dL (12.5-16.0); Mean Cell Volume 98.5 fl (78-100); Mean Corpuscular Hemoglobin 29.8 pg (27-31); Mean Corpuscular Hgb Conc 30.2 g/dl (32-36); Mean Platelet Volume 9.1 fl (8-12.5); Platelet Count 422 K/mm3 (150-450); Red Blood Count 2.72 M/mm3 (4.2-5.4); Red Cell Distribution Width 19.9 % (11.5-14.0); White Blood Count 13.3 K/mm3 (4.0-10.5)
[2020-04-10 14:40] LABS: Anion Gap 11.7 mmol/L (6.8-13.8); BUN/Creatinine Ratio 15.2 (9.0-21.6); Calcium * 8.5 mg/dL (7.9-10.9); Carbon Dioxide 30.3 mmol/L (24-32.6); Estimated Creat Clear 32.4
--- NOTE | 2020-04-10 16:00 | PN ---
Progess Note - Interim Date: 04/10/20 Time: 16:00 Narrative: 04/10/20 16:00 reviewed this afternoon's EKG. sinus tach with PVCs. no treatment change at present time.
[2020-04-10] MEDS: ENOXAPARIN SODIUM 40 MG/0.4 ML SYRG SC SCH (19:57)
[2020-04-10] MEDS: NYSTATIN 15 APPL BTL TP SCH (20:04)
[2020-04-11 06:33] LABS: Hematocrit 25.3 % (37.0-47.0); Mean Cell Volume 99.2 fl (78-100); Mean Corpuscular Hemoglobin 29.8 pg (27-31); Mean Platelet Volume 9.5 fl (8-12.5); Platelet Count 377 K/mm3 (150-450); Red Blood Count 2.55 M/mm3 (4.2-5.4); Red Cell Distribution Width 19.9 % (11.5-14.0); White Blood Count 11.8 K/mm3 (4.0-10.5)
[2020-04-11 06:51] LABS: Anion Gap 7.8 mmol/L (6.8-13.8); BUN/Creatinine Ratio 14.1 (9.0-21.6); Bilirubin, Total 0.5 mg/dL (0.0-1.1); Ca. Corrected For Albumin 9.8 mg/dL (8.4-10.2); Calcium * 8.5 mg/dL (7.9-10.9); Carbon Dioxide 34.7 mmol/L (24-32.6); Potassium 3.5 mmol/L (3.4-4.6)
[2020-04-11] MEDS: PANTOPRAZOLE SODIUM 20 MG TABLET.DR PO SCH ×2 (07:01→21:06)
[2020-04-11] MEDS: FLUTICASONE PROPION/SALMETEROL 14 PUFF DISK.W.DEV IH SCH ×2 (07:02→19:11)
[2020-04-11 07:07] LABS: Hemoglobin 7.6 gm/dL (12.5-16.0)
[2020-04-11 07:09] LABS: Total Cells Counted 100
--- NOTE | 2020-04-11 07:11 | PN ---
Subjective - Date and Time Seen Date: 04/11/20 Time: 06:35 Subjective Narrative: 80-year-old female with past medical history of morbid obesity, CHF (last echo a month ago -- mild to mod TR an HFpEF), hypertension, CKD 3, bronchial asthma, dementia, lung cancer (2 spots removed from right lung two or three years ago, radiation, most recent chest CT clear of cancer), and recurrent pneumonia (most recently at [facility] last month -- MSSA)who was evaluated in the [facility] ER 2 nights ago after the patient was brought in by EMS from the [facility] for worsening dyspnea and tachypnea that started 3 days ago. She was discharged from [facility] to [facility] for rehab about 3 weeks ago. Since arriving at the Center she said she hadn't been given her usual lasix because it wasn't on the [facility] discharge instructions. While at [facility] she developed bilateral lower leg edema. 3 days ago she was noted to have significant tachypnea by nursing staff. She was restarted on her Lasix 2 days ago and she thought it would help her symptoms, but instead of getting better she got worse. At no time did she have fever, chills or sweats. At the halfway she was hypoxic with oxygen saturation below 90 and labored breathing, so EMS was called and she was transported to the [facility] ER. In the ER she was found to be persistently tachypneic and hypoxic so she was placed on oxygen by nasal cannula. She was also treated with a dose of IV Lasix and a breathing treatment. Chest x-ray was consistent with multifocal pneumonia so she was also started on IV Levaquin. She didn't have much urine output following her IV dose of Lasix, but has had significant output and weight loss since yesterday morning. Her physical exam this morning shows improvement and she feels better. She was able to walk to her room door and back to her bed twice yesterday. Her ER BNP was over 5000. Her wbc count was slightly elevated at about 14,000. Her ER Covid test was negative. Her hgb in the ER was 8.4, identical to one about three weeks ago, yesterday morning 7.6 and yesterday afternoon 8.1. Labs from this morning are still pending. She has chronic myelodysplasia, which explains her low hgb. I communicated with her transportation services representative in [place] yesterday who said her hydroxyurea had been held and he would like to see a CBC around the week of . Objective - Review of Systems Generalized/Overall Review: Reports: Weakness, Weight loss EENTM: Reports: No Symptoms Reported Respiratory: Reports: Other - green Cardiac: Reports: Edema. Denies: Chest Pain, Palpitations Abdominal: Reports: No Symptoms Reported Genitourinary Symptoms: Reports: No Symptoms Reported Musculoskeletal Complaints: Reports: No Symptoms Reported Neurological: Reports: No Symptoms Reported Skin: Reports: Bruising - resolving. Denies: Lesions, Rash Endocrine: Reports: Intolerance to Cold, Intolerance to Heat Misc: All systems neg except as marked - Vitals Vitals: Last Vital Signs Temp 36.4 C 04/11/20 02:00 Pulse 103 H 04/11/20 02:06 Resp 26 H 04/11/20 02:00 BP 101/52 04/11/20 02:00 Pulse Ox 96 04/11/20 02:00 - Abnormal Lab Findings Abnormal Lab Findings: Abnormal Lab Results 04/10/20 04/10/20 04/10/20 Range/Units 06:17 14:24 14:24 WBC 12.0 H 13.3 H (4.0-10.5) K/mm3 RBC 2.52 L 2.72 L (4.2-5.4) M/mm3 Hgb 7.6 L* 8.1 L (12.5-16.0) gm/dL Hct 25.1 L 26.8 L (37.0-47.0) % MCHC 30.3 L 30.2 L (32-36) g/dl RDW 19.9 H 19.9 H (11.5-14.0) % Plt Count 498 H (150-450) K/mm3 Lymphocytes % (Manual) 19 L (20-51) % Monocytes % (Manual) 15 H (0-9) % Eosinophils % (Manual) 5 H (0-3) % Basophils % (Manual) 2 H (0-1) % Neutrophils # (Manual) 6.8 H (1.3-6.0) K/mm3 Monocytes # (Manual) 1.8 H (0.0-1.0) k/mm3 Basophils # (Manual) 0.2 H (0.0-0.1) k/mm3 Nucleated RBCs 3.0 H (0-1) % Creatinine 1.45 H (0.4-1.4) mg/dL Est GFR (Non-Af Amer) 37 L (60-130) mL/min - Exam Constitutional: Present: Alert, Oriented x3, Cooperative, Well developed, No distress, Obese ENT Exam: Present: normal ENT inspection, hearing grossly normal Neck: Present: normal inspection. Absent: lymphadenopathy (R), lymphadenopathy (L), thyromegaly Breasts: Present: Exam deferred Respiratory: Present: lungs clear, no respiratory distress Cardiovascular/Chest: Present: regular rate, rhythm, no gallop, no JVD, no murmur, edema - edema has significantly improved Abdomen: Present: Normal bowel sounds, soft, nontender, nondistended, no hepatospenomegaly, no masses, obese /Rectal: Present: Exam deferred Extremity: Present: normal capillary refill, pedal edema Skin Exam: Present: normal color, warm/dry, no cyanosis, other - bruising Lymphatic: Present: no adenopathy Neurologic: Present: normal mood/affect, oriented x 3 Appearance: Present: appropriate appearance, appropriate insight, neat, no memory impairment Eye contact: Present: cooperative, good eye contact, normal speech Thoughts: Present: normal thought pattern Assessment/Plan - Problems/Diagnosis (1) Pneumonia Problem: Acute Qualifiers: Pneumonia type: due to unspecified organism Laterality: bilateral Lung location: unspecified part of lung Qualified Code(s): J18.9 - Pneumonia, unspecified organism Narrative: Had MSSA in [place] last month. Improving. Will continue levaquin. Possibly ready for discharge on Tuesday. (2) MSSA (methicillin susceptible Staphylococcus aureus) pneumonia Problem: Suspected Qualifiers: Laterality: bilateral Lung location: unspecified part of lung Qualified Code(s): J15.211 - Pneumonia due to Methicillin susceptible Staphylococcus aureus Narrative: improving. continue Levaquin (3) CHF (congestive heart failure) Problem: Ruled-out Qualifiers: Heart failure type: systolic Heart failure chronicity: acute on chronic Qualified Code(s): I50.23 - Acute on chronic systolic (congestive) heart failure Narrative: I was able to review her recent echo yesterday afternoon. she has mild to mod TR and HFpEF. (4) Hypoxia Problem: Resolved Narrative: will wean O2 (5) Anemia Problem: Chronic Qualifiers: Anemia type: bone marrow failure Bone marrow failure anemia type: unspecified bone marrow failure Qualified Code(s): D61.9 - Aplastic anemia, unspecified Narrative: chronic myelodysplasia. will follow blood count. transportation services representative in [place], Dr. Carpio, would like to see a CBC from about the week of Apr 28 (6) Chronic respiratory failure with hypoxia Problem: Chronic (7) Hypoalbuminemia Problem: Chronic (8) Vitamin D deficiency Problem: Chronic (9) Malignant neoplasm of upper lobe, right bronchus or lung Problem: Chronic Narrative: had excision and radiation therapy several years ago. most recent chest CT clear of cancer. (10) BMI 39.0-39.9,adult Problem: Resolved Narrative: due to fluid loss BMI 37.1 this morning (11) Tricuspid regurgitation Problem: Chronic Qualifiers: Cardiac valve disease etiology: etiology unspecified Qualified Code(s): I07.1 - Rheumatic tricuspid insufficiency (12) (HFpEF) heart failure with preserved ejection fraction Problem: Chronic Qualifiers: Heart failure chronicity: acute on chronic Qualified Code(s): I50.33 - Acute on chronic diastolic (congestive) heart failure Narrative: has had excellent diuresis since yesterday morning. will decrease lasix dose to 60 mg once daily and later probably to 40 mg once daily (13) Chronic myeloproliferative disease Problem: Chronic Narrative: has been on hydroxyurea. followed by Dr. Carpio in [place]. med being held. followup CBC to Dr. Carpio about the week of Apr 28
[2020-04-11 07:24] LABS: Basophil 1 % (0-1); Eosinophil 2 % (0-3); Immature Granulocyte 4 (0-1); Lymphocyte 34 % (20-51); Monocyte 14 % (0-9); Neutrophil 45 % (42-75); Neutrophil # 5.3 K/mm3 (1.3-6.0)
[2020-04-11 07:25] LABS: Ovalocytes Trace; Platelet Estimate Normal (NORMAL); Poikilocytosis 1+; Polychromasia Trace
[2020-04-11 07:35] LABS: Anisocytosis 1+
[2020-04-11 07:38] LABS: Hypersegmented Polys Trace
[2020-04-11] MEDS ORDERED: FUROSEMIDE 10 MG/ML VIAL IV SCH (09:00)
[2020-04-11] MEDS: FOLIC ACID 1 MG TABLET PO SCH (09:21)
[2020-04-11] MEDS: ASPIRIN 81 MG TABLET.DR PO SCH (09:23)
[2020-04-11] MEDS: CHOLECALCIFEROL 5,000 UNIT TABLET PO SCH (09:23)
[2020-04-11] MEDS: METOPROLOL TARTRATE 25 MG TABLET PO SCH ×3 (09:24→21:05)
[2020-04-11] MEDS: NYSTATIN 15 APPL BTL TP SCH ×2 (09:24→21:04)
[2020-04-11] MEDS: DICLOFENAC SODIUM 100 APPL TUBE TP SCH ×4 (09:28→21:04)
[2020-04-11] MEDS: LEVOFLOXACIN 750 MG TABLET PO SCH (13:33)
[2020-04-11] MEDS: ENOXAPARIN SODIUM 40 MG/0.4 ML SYRG SC SCH (19:10)
[2020-04-11] MEDS: ACETAMINOPHEN 325 MG TABLET PO PRN (22:11)
[2020-04-12 06:08] LABS: Mean Cell Volume 98.3 fl (78-100); Mean Corpuscular Hemoglobin 29.8 pg (27-31); Mean Corpuscular Hgb Conc 30.3 g/dl (32-36); Mean Platelet Volume 9.3 fl (8-12.5); NRBC# 0.2 k/mm3 (0-1); Neutrophil # 4.9 K/mm3 (1.3-6.0); Neutrophil % 43.4 % (42-75.0); Platelet Count 345 K/mm3 (150-450); Red Blood Count 2.42 M/mm3 (4.2-5.4); Red Cell Distribution Width 19.8 % (11.5-14.0); White Blood Count 11.3 K/mm3 (4.0-10.5)
[2020-04-12 06:20] LABS: Anion Gap 8.2 mmol/L (6.8-13.8); BUN/Creatinine Ratio 15.5 (9.0-21.6); Calcium * 8.5 mg/dL (7.9-10.9); Carbon Dioxide 33.3 mmol/L (24-32.6); Estimated Creat Clear 25.9; Potassium 3.5 mmol/L (3.4-4.6)
[2020-04-12] MEDS: PANTOPRAZOLE SODIUM 20 MG TABLET.DR PO SCH ×2 (06:32→20:20)
[2020-04-12] MEDS: FLUTICASONE PROPION/SALMETEROL 14 PUFF DISK.W.DEV IH SCH ×2 (06:32→20:16)
[2020-04-12 06:49] LABS: Hematocrit 23.8 % (37.0-47.0); Hemoglobin 7.2 gm/dL (12.5-16.0)
[2020-04-12 06:50] LABS: Total Cells Counted 100
[2020-04-12 08:47] LABS: Atypical (Reactive) Lymph 10 % (0-2); Band 3 % (0-2.0); Lymphocyte 27 % (20-51); Monocyte 17 % (0-9); Neutrophil 43 % (42-75); Neutrophil # 4.9 K/mm3 (1.3-6.0); Platelet Estimate Normal (NORMAL)
[2020-04-12 08:50] LABS: Anisocytosis 2+
[2020-04-12] MEDS: DICLOFENAC SODIUM 100 APPL TUBE TP SCH ×4 (09:56→20:16)
[2020-04-12] MEDS: ASPIRIN 81 MG TABLET.DR PO SCH (09:56)
[2020-04-12] MEDS: METOPROLOL TARTRATE 25 MG TABLET PO SCH ×3 (09:57→20:17)
[2020-04-12] MEDS: FOLIC ACID 1 MG TABLET PO SCH (09:57)
[2020-04-12] MEDS: CHOLECALCIFEROL 5,000 UNIT TABLET PO SCH (09:58)
[2020-04-12] MEDS: NYSTATIN 15 APPL BTL TP SCH ×2 (09:59→20:20)
[2020-04-12] MEDS: LEVOFLOXACIN 750 MG TABLET PO SCH (10:04)
[2020-04-12] MEDS: ENOXAPARIN SODIUM 40 MG/0.4 ML SYRG SC SCH (20:16)
--- NOTE | 2020-04-12 23:50 | PN ---
Subjective - Date and Time Seen Date: 04/12/20 Time: 09:30 Subjective Narrative: Deborah reports feeling better, still using oxygen. Creatinine bumped to 1.8 today. No fever, chills, nausea, or vomiting. Objective - Vitals Vitals: Last Vital Signs Temp 36.5 C 04/12/20 23:01 Pulse 75 04/12/20 23:01 Resp 22 H 04/12/20 23:01 BP 97/53 04/12/20 23:01 Pulse Ox 90 L 04/12/20 23:01 - Abnormal Lab Findings Abnormal Lab Findings: Abnormal Lab Results 04/12/20 04/12/20 Range/Units 05:50 05:50 WBC 11.3 H (4.0-10.5) K/mm3 RBC 2.42 L (4.2-5.4) M/mm3 Hgb 7.2 L* (12.5-16.0) gm/dL Hct 23.8 L* (37.0-47.0) % MCHC 30.3 L (32-36) g/dl RDW 19.8 H (11.5-14.0) % Immature Gran % (Auto) 2.50 H (0.001-0.429) % Immature Gran # (Auto) 0.28 H (0.000-0.0310) K/mm3 Band Neuts % (Manual) 3 H (0-2.0) % Lymphocytes % 13.0 L (20-51) % Monocytes % 39.1 H (0.0-9) % Monocytes % (Manual) 17 H (0-9) % Lymphocytes # 1.47 L (1.5-3.5) k/mm3 Monocytes # 4.4 H (0.0-1.0) k/mm3 Monocytes # (Manual) 1.9 H (0.0-1.0) k/mm3 Nucleated RBCs 5.0 H (0-1) % Atypic/Reactive Lymphs 10 H (0-2) % Carbon Dioxide 33.3 H (24-32.6) mmol/L BUN 28 H (3-23) mg/dL Creatinine 1.81 H (0.4-1.4) mg/dL Est GFR (Non-Af Amer) 29 L (60-130) mL/min - Exam Constitutional: Present: Alert, Oriented x3, Cooperative Respiratory: Present: lungs clear, no respiratory distress, decreased breath so unds Cardiovascular/Chest: Present: regular rate, rhythm Abdomen: Present: Normal bowel sounds, soft, nontender, nondistended Assessment/Plan Plan Narrative: Continues to need oxygen, will continue to wean as able. Continue antibiotics. Creatinine is elevated today. No lasix today. Continue current fluid re strictions due to CHF, but if creatinine does not improve tomorrow may need to left fluid restrictions. - Problems/Diagnosis (1) Acute respiratory failure Problem: Acute Qualifiers: Respiratory failure complication: hypoxia Qualified Code(s): J96.01 - Acute respiratory failure with hypoxia (2) Pneumonia Problem: Acute Qualifiers: Pneumonia type: due to methicillin-sensitive Staphylococcus aureus (MSSA) Laterality: bilateral Lung location: unspecified part of lung Qualified Code(s): J15.211 - Pneumonia due to Methicillin susceptible Staphylococcus aureus (3) CKD (chronic kidney disease) stage 3, GFR 30-59 ml/min Problem: Acute
[2020-04-13] MEDS: ACETAMINOPHEN 325 MG TABLET PO PRN
[2020-04-13] MEDS: FLUTICASONE PROPION/SALMETEROL 14 PUFF DISK.W.DEV IH SCH ×2 (06:33→19:02)
[2020-04-13] MEDS: PANTOPRAZOLE SODIUM 20 MG TABLET.DR PO SCH ×2 (06:33→20:42)
[2020-04-13] MEDS: CHOLECALCIFEROL 5,000 UNIT TABLET PO SCH (08:57)
[2020-04-13] MEDS: FOLIC ACID 1 MG TABLET PO SCH (08:57)
[2020-04-13] MEDS: NYSTATIN 15 APPL BTL TP SCH ×2 (08:58→20:41)
[2020-04-13] MEDS: METOPROLOL TARTRATE 25 MG TABLET PO SCH ×3 (08:58→20:41)
[2020-04-13] MEDS: ASPIRIN 81 MG TABLET.DR PO SCH (08:58)
[2020-04-13] MEDS: DICLOFENAC SODIUM 100 APPL TUBE TP SCH ×4 (08:58→20:40)
[2020-04-13 10:05] LABS: Hematocrit 26.6 % (37.0-47.0); Hemoglobin 8.1 gm/dL (12.5-16.0); Mean Cell Volume 98.9 fl (78-100); Mean Corpuscular Hemoglobin 30.1 pg (27-31); Mean Corpuscular Hgb Conc 30.5 g/dl (32-36); Mean Platelet Volume 9.5 fl (8-12.5); Platelet Count 381 K/mm3 (150-450); Red Blood Count 2.69 M/mm3 (4.2-5.4); Red Cell Distribution Width 19.7 % (11.5-14.0); White Blood Count 13.1 K/mm3 (4.0-10.5)
[2020-04-13 10:08] LABS: Total Cells Counted 100
[2020-04-13 10:17] LABS: Albumin * 2.1 gm/dl (3.4-5.0); Anion Gap 6.9 mmol/L (6.8-13.8); BUN/Creatinine Ratio 15.7 (9.0-21.6); Bilirubin, Total 0.4 mg/dL (0.0-1.1); Ca. Corrected For Albumin 9.9 mg/dL (8.4-10.2); Calcium * 8.7 mg/dL (7.9-10.9); Carbon Dioxide 34.7 mmol/L (24-32.6); Potassium 3.6 mmol/L (3.4-4.6); Total Protein 6.2 gm/dL (6.2-8.2)
[2020-04-13] MEDS: LEVOFLOXACIN 750 MG TABLET PO SCH (10:32)
[2020-04-13 10:53] LABS: Anisocytosis 2+; Atypical (Reactive) Lymph 9 % (0-2); Band 3 % (0-2.0); Eosinophil 2 % (0-3); Lymphocyte 18 % (20-51); Monocyte 28 % (0-9); Neutrophil 40 % (42-75); Neutrophil # 5.2 K/mm3 (1.3-6.0); Platelet Estimate Normal (NORMAL)
--- NOTE | 2020-04-13 11:28 | PN ---
Subjective - Date and Time Seen Date: 04/13/20 Time: 10:00 Subjective Narrative: She reports feeling ok. Is on 1lpm of oxygen and 90-93%. Creatinine raised to 2 today. She denies fever, chills, nausea, and vomiting. She believes she could drink more fluids today. Objective - Vitals Vitals: Last Vital Signs Temp 36.6 C 04/13/20 10:00 Pulse 112 H 04/13/20 10:00 Resp 28 H 04/13/20 10:00 BP 102/53 04/13/20 10:00 Pulse Ox 93 04/13/20 10:00 - Abnormal Lab Findings Abnormal Lab Findings: Abnormal Lab Results 04/13/20 04/13/20 Range/Units 09:59 09:59 WBC 13.1 H (4.0-10.5) K/mm3 RBC 2.69 L (4.2-5.4) M/mm3 Hgb 8.1 L (12.5-16.0) gm/dL Hct 26.6 L (37.0-47.0) % MCHC 30.5 L (32-36) g/dl RDW 19.7 H (11.5-14.0) % Neutrophils % (Manual) 40 L (42-75) % Band Neuts % (Manual) 3 H (0-2.0) % Lymphocytes % (Manual) 18 L (20-51) % Monocytes % (Manual) 28 H (0-9) % Monocytes # (Manual) 3.7 H (0.0-1.0) k/mm3 Atypic/Reactive Lymphs 9 H (0-2) % Carbon Dioxide 34.7 H (24-32.6) mmol/L BUN 32 H (3-23) mg/dL Creatinine 2.04 H (0.4-1.4) mg/dL Est GFR (Non-Af Amer) 25 L (60-130) mL/min ALT 10 L (19-67) U/L Albumin 2.1 L (3.4-5.0) gm/dl - Exam Constitutional: Present: Alert, Oriented x3, Cooperative ENT Exam: Present: hearing grossly normal Cardiovascular/Chest: Present: regular rate, rhythm, no murmur Abdomen: Present: Normal bowel sounds, soft, nontender, nondistended Extremity: Present: lower extremity edema - 1+ Skin Exam: Present: no cyanosis Appearance: Present: appropriate appearance, appropriate insight Eye contact: Present: cooperative, good eye contact, normal speech Assessment/Plan Plan Narrative: Deborah is overall feeling well today. However renal function has worsened. She has not received in more lasix in the last two days but is on fluid restrictions due to CHF. I have removed fluid restrictions and encouraged her to drink more fluids today. Will hold off on IV fluids as she seems capable of increasing oral intake and I do not want to swing her back into CHF exacerbation. - Problems/Diagnosis (1) Acute respiratory failure Problem: Acute Qualifiers: Respiratory failure complication: hypoxia Qualified Code(s): J96.01 - Acute respiratory failure with hypoxia (2) Pneumonia Problem: Acute Qualifiers: Pneumonia type: due to methicillin-sensitive Staphylococcus aureus (MSSA) Laterality: bilateral Lung location: unspecified part of lung Qualified Code(s): J15.211 - Pneumonia due to Methicillin susceptible Staphylococcus aureus (3) Acute worsening of stage 3 chronic kidney disease Problem: Acute (4) CKD (chronic kidney disease) stage 3, GFR 30-59 ml/min Problem: Chronic
[2020-04-13] MEDS: ALBUTEROL SULFATE 2.5 MG/0.5 ML VIAL.NEB IH PRN (19:05)
[2020-04-13] MEDS: ENOXAPARIN SODIUM 40 MG/0.4 ML SYRG SC SCH (20:41)
[2020-04-14] MEDS: ALBUTEROL SULFATE 2.5 MG/0.5 ML VIAL.NEB IH PRN ×2 (04:33→19:49)
[2020-04-14] MEDS: PANTOPRAZOLE SODIUM 20 MG TABLET.DR PO SCH ×2 (07:15→20:34)
[2020-04-14] MEDS: FLUTICASONE PROPION/SALMETEROL 14 PUFF DISK.W.DEV IH SCH ×2 (07:15→18:52)
--- NOTE | 2020-04-14 07:15 | PN ---
Subjective - Date and Time Seen Date: 04/14/20 Time: 06:45 Subjective Narrative: Had more SOB last night. albuterol helped. here with pneumonia and HFpEF. over the weekend renal failure worsened. lasix stopped. still on antibiotics. incontinent of urine chronically. also a history of asthma. no labs ordered for this morning. still using nasal canula o2. weight stable. heart rate fairly well controlled at just about 100. Objective - Review of Systems Generalized/Overall Review: Reports: Weakness - didn't do well with ambulation over the weekend. EENTM: Reports: No Symptoms Reported Respiratory: Reports: Cough, Shortness of Breath Cardiac: Reports: Edema - chronic. no worse. (weight stable) Abdominal: Reports: No Symptoms Reported Genitourinary Symptoms: Reports: No Symptoms Reported Musculoskeletal Complaints: Reports: No Symptoms Reported Neurological: Reports: No Symptoms Reported Skin: Reports: Bruising Endocrine: Reports: No Symptoms Reported Misc: All systems neg except as marked - Vitals Vitals: Last Vital Signs Temp 37.3 C 04/14/20 06:29 Pulse 104 H 04/14/20 06:29 Resp 24 H 04/14/20 06:29 BP 119/57 04/14/20 06:29 Pulse Ox 90 L 04/14/20 04:33 - Abnormal Lab Findings Abnormal Lab Findings: Abnormal Lab Results 04/13/20 04/13/20 Range/Units 09:59 09:59 WBC 13.1 H (4.0-10.5) K/mm3 RBC 2.69 L (4.2-5.4) M/mm3 Hgb 8.1 L (12.5-16.0) gm/dL Hct 26.6 L (37.0-47.0) % MCHC 30.5 L (32-36) g/dl RDW 19.7 H (11.5-14.0) % Neutrophils % (Manual) 40 L (42-75) % Band Neuts % (Manual) 3 H (0-2.0) % Lymphocytes % (Manual) 18 L (20-51) % Monocytes % (Manual) 28 H (0-9) % Monocytes # (Manual) 3.7 H (0.0-1.0) k/mm3 Atypic/Reactive Lymphs 9 H (0-2) % Carbon Dioxide 34.7 H (24-32.6) mmol/L BUN 32 H (3-23) mg/dL Creatinine 2.04 H (0.4-1.4) mg/dL Est GFR (Non-Af Amer) 25 L (60-130) mL/min ALT 10 L (19-67) U/L Albumin 2.1 L (3.4-5.0) gm/dl - Exam Constitutional: Present: Alert, Oriented x3, Cooperative, Well developed, Obese ENT Exam: Present: normal ENT inspection, hearing grossly normal Neck: Absent: lymphadenopathy (R), lymphadenopathy (L), thyromegaly Breasts: Present: Exam deferred Respiratory: Present: other - increased work of breathing. tachypnea. n.c. o2. end expiratory squeaking. Cardiovascular/Chest: Present: regular rate, rhythm, no gallop, no murmur, JVD, edema - edema about the same as Tuesday Abdomen: Present: Normal bowel sounds, soft, nontender, nondistended, no hepatospenomegaly, no masses, obese /Rectal: Present: Exam deferred Extremity: Present: other - bilateral extremity edema, about the same Skin Exam: Present: warm/dry, other - resolving bruising Lymphatic: Present: no adenopathy Neurologic: Present: normal mood/affect Appearance: Present: appropriate appearance, appropriate insight, neat, no memory impairment Eye contact: Present: cooperative, good eye contact, normal speech Thoughts: Present: normal thought pattern Assessment/Plan - Problems/Diagnosis (1) Pneumonia Problem: Acute Qualifiers: Pneumonia type: due to methicillin-sensitive Staphylococcus aureus (MSSA) Laterality: bilateral Lung location: unspecified part of lung Qualified Code(s): J15.211 - Pneumonia due to Methicillin susceptible Staphylococcus aureus Narrative: breathing is worse than Tuesday. worsening pneumonia? repeat CXR. worsening heart failure? weight stable. will continue to monitor. worsening kidney function. continue off of lasix for now. labs this morning and tomorrow. continue O2. history of asthma. prn albuterol seemed to help last night. change to scheduled plus prn albuterol. add nebulized budesonide. already on twice daily advair. continue to monitor. as of this morning, not yet close to discharge. (2) MSSA (methicillin susceptible Staphylococcus aureus) pneumonia Problem: Suspected Qualifiers: Laterality: bilateral Lung location: unspecified part of lung Qualified Code(s): J15.211 - Pneumonia due to Methicillin susceptible Staphylococcus aureus (3) CHF (congestive heart failure) Problem: Ruled-out Qualifiers: Heart failure type: systolic Heart failure chronicity: acute on chronic Qualified Code(s): I50.23 - Acute on chronic systolic (congestive) heart failure (4) Hypoxia Problem: Resolved (5) Anemia Problem: Chronic Qualifiers: Anemia type: bone marrow failure Bone marrow failure anemia type: unspecified bone marrow failure Qualified Code(s): D61.9 - Aplastic anemia, unspecified (6) Chronic respiratory failure with hypoxia Problem: Chronic (7) Hypoalbuminemia Problem: Chronic (8) Vitamin D deficiency Problem: Chronic (9) Malignant neoplasm of upper lobe, right bronchus or lung Problem: Chronic (10) BMI 39.0-39.9,adult Problem: Resolved (11) Tricuspid regurgitation Problem: Chronic Qualifiers: Cardiac valve disease etiology: etiology unspecified Qualified Code(s): I07.1 - Rheumatic tricuspid insufficiency (12) (HFpEF) heart failure with preserved ejection fraction Problem: Chronic Qualifiers: Heart failure chronicity: acute on chronic Qualified Code(s): I50.33 - Acute on chronic diastolic (congestive) heart failure (13) Chronic myeloproliferative disease Problem: Chronic
--- NOTE | 2020-04-14 07:31 | PN ---
Progess Note - Interim Date: 04/14/20 Time: 07:29 Narrative: 04/14/20 07:29 at the end of last week we increased metoprolol for rate control. over the weekend her breathing worsened. she has asthma, in addition to pneumonia and HFpEF. beta marina at a higher dose may be interfering with her asthma. we will switch to diltiazem and continue to monitor.
[2020-04-14 07:51] LABS: Hematocrit 25.6 % (37.0-47.0); Mean Cell Volume 98.8 fl (78-100); Mean Corpuscular Hemoglobin 29.7 pg (27-31); Mean Corpuscular Hgb Conc 30.1 g/dl (32-36); Mean Platelet Volume 9.1 fl (8-12.5); Platelet Count 325 K/mm3 (150-450); Red Blood Count 2.59 M/mm3 (4.2-5.4); Red Cell Distribution Width 19.8 % (11.5-14.0); White Blood Count 13.3 K/mm3 (4.0-10.5)
[2020-04-14 07:53] LABS: Anion Gap 8.9 mmol/L (6.8-13.8); BUN/Creatinine Ratio 17.4 (9.0-21.6); Calcium * 8.8 mg/dL (7.9-10.9); Estimated Creat Clear 26.4; Potassium 3.9 mmol/L (3.4-4.6)
[2020-04-14 07:57] LABS: Hemoglobin 7.7 gm/dL (12.5-16.0)
[2020-04-14 07:59] LABS: Total Cells Counted 100
[2020-04-14] MEDS: DICLOFENAC SODIUM 100 APPL TUBE TP SCH ×4 (08:22→20:33)
[2020-04-14] MEDS: CHOLECALCIFEROL 5,000 UNIT TABLET PO SCH (08:22)
[2020-04-14] MEDS: ASPIRIN 81 MG TABLET.DR PO SCH (08:22)
[2020-04-14] MEDS: DILTIAZEM HCL 30 MG TABLET PO SCH ×3 (08:22→23:50)
[2020-04-14] MEDS: FOLIC ACID 1 MG TABLET PO SCH (08:22)
[2020-04-14] MEDS: NYSTATIN 15 APPL BTL TP SCH ×2 (08:22→20:33)
[2020-04-14 08:34] LABS: Eosinophil 4 % (0-3); Lymphocyte 22 % (20-51); Monocyte 8 % (0-9); Neutrophil 40 % (42-75); Neutrophil # 5.3 K/mm3 (1.3-6.0)
[2020-04-14 08:37] LABS: Platelet Estimate Normal (NORMAL)
[2020-04-14 08:42] LABS: Atypical (Reactive) Lymph 26 % (0-2); Hypochromia 1+; Polychromasia 2+; Target Cells Trace
[2020-04-14] MEDS: ALBUTEROL SULFATE 2.5 MG/0.5 ML VIAL.NEB IH SCH ×3 (08:48→18:11)
[2020-04-14] MEDS: BUDESONIDE 0.5 MG/2 ML VIAL.NEB IH SCH ×2 (08:50→18:12)
--- NOTE | 2020-04-14 09:01 | PN ---
Progess Note - Interim Date: 04/14/20 Time: 08:59 Narrative: 04/14/20 08:59 spoke with our pharmacist, Dr. Stein, by phone. she thinks culture showing MSSA in [place] (also showed yeast) was most likely saliva not sputum. we agreed to change our antibiotic coverage now since the patient seems to be worse. we will switch to cefipime and vancomycin. cxr results are still pending.
[2020-04-14] MEDS: CEFEPIME HCL 1 GM in DEXTROSE 5 % IN WATER 100 ML IV SCH ×4 (10:02→21:58)
[2020-04-14] MEDS: VANCOMYCIN/WATER FOR INJ (PEG) 1 GM/200 ML BAG IV SCH (10:51)
[2020-04-14] MEDS ORDERED: MORPHINE SULFATE 2 MG/ML DISP.SYRIN IV ONE (20:12)
[2020-04-14] MEDS: ENOXAPARIN SODIUM 40 MG/0.4 ML SYRG SC SCH (20:32)
[2020-04-15] MEDS: ALBUTEROL SULFATE 2.5 MG/0.5 ML VIAL.NEB IH SCH ×4 (00:07→18:09)
[2020-04-15] MEDS ORDERED: METOPROLOL TARTRATE 1 MG/ML AMPUL IV ONE (02:51)
[2020-04-15] MEDS: BUDESONIDE 0.5 MG/2 ML VIAL.NEB IH SCH ×2 (06:03→18:08)
[2020-04-15 06:14] LABS: Mean Cell Volume 97.9 fl (78-100); Mean Corpuscular Hemoglobin 29.6 pg (27-31); Mean Corpuscular Hgb Conc 30.3 g/dl (32-36); Mean Platelet Volume 9.8 fl (8-12.5); Platelet Count 323 K/mm3 (150-450); Red Blood Count 2.43 M/mm3 (4.2-5.4); Red Cell Distribution Width 19.8 % (11.5-14.0); White Blood Count 14.3 K/mm3 (4.0-10.5)
[2020-04-15 06:16] LABS: Anion Gap 9.1 mmol/L (6.8-13.8); BUN/Creatinine Ratio 18.7 (9.0-21.6); Calcium * 8.8 mg/dL (7.9-10.9); Estimated Creat Clear 27.5; Potassium 4.1 mmol/L (3.4-4.6)
[2020-04-15 07:22] LABS: Hematocrit 23.8 % (37.0-47.0); Hemoglobin 7.2 gm/dL (12.5-16.0)
[2020-04-15 07:23] LABS: Total Cells Counted 100
[2020-04-15 07:41] LABS: Band 1 % (0-2.0); Eosinophil 2 % (0-3); Lymphocyte 10 % (20-51); Monocyte 9 % (0-9); Neutrophil 46 % (42-75); Neutrophil # 6.6 K/mm3 (1.3-6.0)
[2020-04-15 07:42] LABS: Atypical (Reactive) Lymph 32 % (0-2)
[2020-04-15 07:43] LABS: Hypochromia 1+; Platelet Estimate Normal (NORMAL)
[2020-04-15] MEDS: DILTIAZEM HCL 30 MG TABLET PO SCH (08:21)
[2020-04-15] MEDS: NYSTATIN 15 APPL BTL TP SCH ×2 (08:24→21:09)
--- NOTE | 2020-04-15 08:36 | PN ---
Subjective - Date and Time Seen Date: 04/15/20 Time: 06:40 Subjective Narrative: More SOB last night. Now on oxygen mask. here with pneumonia and HFpEF. GFR a little better off lasix. antibiotics changed yesterday. History of asthma. Was wheezing yesterday morning. for that reason we switched metoprolol to diltiazem. heart rate now 120s to 130s. bp ok, until the most recent one, 93 systolic. we will increase diltiazem slightly for better rate control and continue to monitor. still taking po liquids. incontinent of urine. as she is worsening, need more accurate I&O, will insert lombardi. cxr yesterday morning showed worsening pneumonia. although initial covid screen negative in the ER, we will repeat the test today. given her increased respiratory difficulty, will check blood gasses. she is Full Code status. wbc a little higher today. plan is to switch antibiotics and continue the other interventions. hgb 7.2 this am, not too much different. one stool OB negative. plan is to continue to monitor. will transfuse if necessary. Objective - Review of Systems Generalized/Overall Review: Reports: Weakness EENTM: Reports: No Symptoms Reported Respiratory: Reports: Shortness of Breath Cardiac: Reports: No Symptoms Reported Abdominal: Reports: No Symptoms Reported Genitourinary Symptoms: Reports: No Symptoms Reported, Incontinent Musculoskeletal Complaints: Reports: No Symptoms Reported Neurological: Reports: No Symptoms Reported Skin: Reports: No Symptoms Reported Endocrine: Reports: No Symptoms Reported Misc: All systems neg except as marked - Vitals Vitals: Last Vital Signs Temp 37.3 C 04/15/20 06:30 Pulse 131 H 04/15/20 06:30 Resp 44 H 04/15/20 06:30 BP 93/58 04/15/20 06:30 Pulse Ox 93 04/15/20 06:30 - Abnormal Lab Findings Abnormal Lab Findings: Abnormal Lab Results 04/14/20 04/15/20 04/15/20 Range/Units 07:40 05:50 05:50 WBC 14.3 H (4.0-10.5) K/mm3 RBC 2.43 L (4.2-5.4) M/mm3 Hgb 7.2 L* (12.5-16.0) gm/dL Hct 23.8 L* (37.0-47.0) % MCHC 30.3 L (32-36) g/dl RDW 19.8 H (11.5-14.0) % Neutrophils % (Manual) 40 L (42-75) % Lymphocytes % (Manual) 10 L (20-51) % Eosinophils % (Manual) 4 H (0-3) % Neutrophils # (Manual) 6.6 H (1.3-6.0) K/mm3 Lymphocytes # (Manual) 1.4 L (1.5-3.5) k/mm3 Monocytes # (Manual) 1.1 H 1.3 H (0.0-1.0) k/mm3 Nucleated RBCs 2.0 H 5.0 H (0-1) % Atypic/Reactive Lymphs 26 H 32 H (0-2) % Carbon Dioxide 33.0 H (24-32.6) mmol/L BUN 32 H (3-23) mg/dL Creatinine 1.71 H (0.4-1.4) mg/dL Est GFR (Non-Af Amer) 31 L (60-130) mL/min Random Glucose 118 H (70-110) mg/dL - Exam Constitutional: Present: Alert, Cooperative, Well developed, Obese ENT Exam: Present: normal ENT inspection, hearing grossly normal Neck: Absent: limited range of motion, lymphadenopathy (R), lymphadenopathy (L) Breasts: Present: Exam deferred Respiratory: Present: rales, wheezing Cardiovascular/Chest: Present: regular rate, rhythm, no JVD, no murmur, edema - edema stable Abdomen: Present: Normal bowel sounds, soft, nontender, nondistended, no hepatospenomegaly, no masses, obese /Rectal: Present: Exam deferred Extremity: Present: normal capillary refill, pedal edema Skin Exam: Present: normal color, warm/dry, no cyanosis, other - resolving bruises Neurologic: Present: other - increased work of breathing now with O2 mask Appearance: Present: neat Eye contact: Present: cooperative Assessment/Plan - Problems/Diagnosis (1) Pneumonia Problem: Acute Qualifiers: Pneumonia type: due to methicillin-sensitive Staphylococcus aureus (MSSA) Laterality: bilateral Lung location: unspecified part of lung Qualified Code(s): J15.211 - Pneumonia due to Methicillin susceptible Staphylococcus aureus Narrative: worsening. have expanded antibiotic coverage. will continue to monitor and provide supportive care. ABGs this morning. Karen for better I&O will recheck covid test. (2) MSSA (methicillin susceptible Staphylococcus aureus) pneumonia Problem: Ruled-out Qualifiers: Laterality: bilateral Lung location: unspecified part of lung Qualified Code(s): J15.211 - Pneumonia due to Methicillin susceptible Staphylococcus aureus Narrative: phone discussion with pharmacist yesterday culture from [place] showing MSSA may have been saliva, not sputum, also grew yeast. patient worsened, so yesterday morning we expanded antibiotic coverage. (3) CHF (congestive heart failure) Problem: Ruled-out Qualifiers: Heart failure type: systolic Heart failure chronicity: acute on chronic Qualified Code(s): I50.23 - Acute on chronic systolic (congestive) heart failure Narrative: this seems stable. I think the main problem is the worsening pneumonia. GFR better off lasix. will continue to monitor. (4) Hypoxia Problem: Resolved (5) Anemia Problem: Chronic Qualifiers: Anemia type: bone marrow failure Bone marrow failure anemia type: unspecified bone marrow failure Qualified Code(s): D61.9 - Aplastic anemia, unspecified (6) Chronic respiratory failure with hypoxia Problem: Chronic (7) Hypoalbuminemia Problem: Chronic (8) Vitamin D deficiency Problem: Chronic (9) Malignant neoplasm of upper lobe, right bronchus or lung Problem: Chronic (10) BMI 39.0-39.9,adult Problem: Resolved (11) Tricuspid regurgitation Problem: Chronic Qualifiers: Cardiac valve disease etiology: etiology unspecified Qualified Code(s): I07.1 - Rheumatic tricuspid insufficiency (12) (HFpEF) heart failure with preserved ejection fraction Problem: Chronic Qualifiers: Heart failure chronicity: acute on chronic Qualified Code(s): I50.33 - Acute on chronic diastolic (congestive) heart failure (13) Chronic myeloproliferative disease Problem: Chronic
[2020-04-15] MEDS: ASPIRIN 81 MG TABLET.DR PO SCH (09:08)
[2020-04-15] MEDS: PANTOPRAZOLE SODIUM 20 MG TABLET.DR PO SCH ×2 (09:09→21:09)
[2020-04-15] MEDS: FOLIC ACID 1 MG TABLET PO SCH (09:09)
[2020-04-15] MEDS: CHOLECALCIFEROL 5,000 UNIT TABLET PO SCH (09:09)
[2020-04-15] MEDS: DILTIAZEM HCL 60 MG TABLET PO SCH ×2 (09:09→16:31)
[2020-04-15] MEDS: DICLOFENAC SODIUM 100 APPL TUBE TP SCH ×4 (09:12→21:08)
[2020-04-15] MEDS: FLUTICASONE PROPION/SALMETEROL 14 PUFF DISK.W.DEV IH SCH ×2 (09:12→18:39)
[2020-04-15] MEDS: CEFEPIME HCL 1 GM in DEXTROSE 5 % IN WATER 100 ML IV SCH ×4 (10:26→21:09)
[2020-04-15] MEDS: VANCOMYCIN/WATER FOR INJ (PEG) 1 GM/200 ML BAG IV SCH (11:40)
--- NOTE | 2020-04-15 12:09 | PN ---
Progess Note - Interim Date: 04/15/20 Time: 12:08 Narrative: 04/15/20 12:08 reviewed abg's ph compensated. low pO2 slightly high PCO2. problem is most likely worsening pneumonia. antibiotics changed yesterday. will increase support with BIPAP and RT consult.
[2020-04-15] MEDS: ENOXAPARIN SODIUM 40 MG/0.4 ML SYRG SC SCH (21:08)
[2020-04-16] MEDS: ALBUTEROL SULFATE 2.5 MG/0.5 ML VIAL.NEB IH SCH ×6 (00:35→18:28)
[2020-04-16] MEDS: DILTIAZEM HCL 60 MG TABLET PO SCH ×3 (01:06→18:06)
[2020-04-16 06:28] LABS: Mean Cell Volume 98.6 fl (78-100); Mean Corpuscular Hgb Conc 30.4 g/dl (32-36); Mean Platelet Volume 9.6 fl (8-12.5); Platelet Count 253 K/mm3 (150-450); Red Blood Count 2.17 M/mm3 (4.2-5.4); Red Cell Distribution Width 19.8 % (11.5-14.0); White Blood Count 10.2 K/mm3 (4.0-10.5)
[2020-04-16 06:31] LABS: Hemoglobin 6.5 gm/dL (12.5-16.0)
[2020-04-16 06:34] LABS: Hematocrit 21.4 % (37.0-47.0); Total Cells Counted 100
[2020-04-16 06:46] LABS: BUN/Creatinine Ratio 21.3 (9.0-21.6); Bilirubin, Total 0.7 mg/dL (0.0-1.1); Ca. Corrected For Albumin 9.9 mg/dL (8.4-10.2); Calcium * 8.6 mg/dL (7.9-10.9); Carbon Dioxide 31.8 mmol/L (24-32.6); Potassium 3.8 mmol/L (3.4-4.6); Total Protein 5.8 gm/dL (6.2-8.2)
[2020-04-16] MEDS ORDERED: ACETAMINOPHEN 325 MG TABLET PO ONE (06:49)
[2020-04-16] MEDS ORDERED: diphenhydrAMINE HCL 50 MG/ML VIAL IV ONE (06:49)
[2020-04-16] MEDS ORDERED: FUROSEMIDE 10 MG/ML VIAL IV PRN (06:49)
--- NOTE | 2020-04-16 06:56 | PN ---
Subjective - Date and Time Seen Date: 04/16/20 Time: 06:35 Subjective Narrative: Bipap on. Looks more comfortable than yesterday morning. Very sleepy as she was yesterday morning. Very hard to wake her up. Nurse reports this morning as the day wore on yesterday she woke up and was more alert. She ate supper last night with BiPAP off, and did well. here with pneumonia and HFpEF. GFR a little better. developed a blotchy itchy rash on arms and legs yesterday and today, each time after Cefipime dose. she has a history of penicillin allergy (reaction unknown). probably allergic to Cefipime. We will switch that to Aztreonam and continue Vancomycin. History of asthma.Lungs clear this morning. heart rate a little slower. bp ok. we will continue to monitor. still taking po liquids. now has lombardi. fluid balance seems appropriate. as she is worsening, need more accurate I&O, will insert lombardi. blood gases on FIO2 of 25% this morning fairly good. O2 sat 100% most recently. she is Full Code status. wbc is normal today. we will continue antibiotics and continue supportive care. Hgb is 6.5 this morning, the lowest it has been, so we will transfuse 2 units of prbc's. repeat covid test negative for covid. Objective - Review of Systems Generalized/Overall Review: Reports: No Symptoms Reported - very sleepy, hard to wake this morning EENTM: Reports: No Symptoms Reported Respiratory: Reports: Shortness of Breath. Denies: Cough Cardiac: Reports: No Symptoms Reported Abdominal: Reports: No Symptoms Reported Genitourinary Symptoms: Reports: Other - lombardi Musculoskeletal Complaints: Reports: No Symptoms Reported Neurological: Reports: No Symptoms Reported Skin: Reports: Rash. Denies: Lesions Endocrine: Reports: No Symptoms Reported Misc: All systems neg except as marked - Vitals Vitals: Last Vital Signs Temp 36.6 C 04/16/20 01:05 Pulse 115 H 04/16/20 05:43 Resp 34 H 04/16/20 05:43 BP 102/53 04/16/20 01:06 Pulse Ox 100 04/16/20 05:43 - Abnormal Lab Findings Abnormal Lab Findings: Abnormal Lab Results 04/15/20 04/15/20 04/15/20 Range/Units 05:50 08:53 13:58 WBC 14.3 H (4.0-10.5) K/mm3 RBC 2.43 L (4.2-5.4) M/mm3 Hgb 7.2 L* (12.5-16.0) gm/dL Hct 23.8 L* (37.0-47.0) % MCHC 30.3 L (32-36) g/dl RDW 19.8 H (11.5-14.0) % Lymphocytes % (Manual) 10 L (20-51) % Neutrophils # (Manual) 6.6 H (1.3-6.0) K/mm3 Lymphocytes # (Manual) 1.4 L (1.5-3.5) k/mm3 Monocytes # (Manual) 1.3 H (0.0-1.0) k/mm3 Nucleated RBCs 5.0 H (0-1) % Atypic/Reactive Lymphs 32 H (0-2) % pO2 65.9 L 395.7 H (83.0-108.0) mmHg HCO3 30.6 H 30.9 H (21.0-28.0) mmol/L Total CO2 31.9 H 32.3 H (19.0-24.0) mmol/L Base Excess 6.1 H 6.6 H (-2.0-3.0) mmol/L ABG pH 7.46 H 7.47 H (7.35-7.45) ABG O2 Sat (Measured) 93.8 L 99.8 H (94.0-98.0) % BUN (3-23) mg/dL Creatinine (0.4-1.4) mg/dL Est GFR (Non-Af Amer) (60-130) mL/min ALT (19-67) U/L Total Protein (6.2-8.2) gm/dL Albumin (3.4-5.0) gm/dl 04/16/20 04/16/20 04/16/20 Range/Units 05:23 06:00 06:00 WBC (4.0-10.5) K/mm3 RBC 2.17 L (4.2-5.4) M/mm3 Hgb 6.5 L* (12.5-16.0) gm/dL Hct 21.4 L* (37.0-47.0) % MCHC 30.4 L (32-36) g/dl RDW 19.8 H (11.5-14.0) % Lymphocytes % (Manual) (20-51) % Neutrophils # (Manual) (1.3-6.0) K/mm3 Lymphocytes # (Manual) (1.5-3.5) k/mm3 Monocytes # (Manual) (0.0-1.0) k/mm3 Nucleated RBCs (0-1) % Atypic/Reactive Lymphs (0-2) % pO2 64.0 L (83.0-108.0) mmHg HCO3 28.9 H (21.0-28.0) mmol/L Total CO2 30.1 H (19.0-24.0) mmol/L Base Excess 4.8 H (-2.0-3.0) mmol/L ABG pH 7.47 H (7.35-7.45) ABG O2 Sat (Measured) 93.6 L (94.0-98.0) % BUN 38 H (3-23) mg/dL Creatinine 1.78 H (0.4-1.4) mg/dL Est GFR (Non-Af Amer) 29 L (60-130) mL/min ALT 12 L (19-67) U/L Total Protein 5.8 L (6.2-8.2) gm/dL Albumin 2.0 L (3.4-5.0) gm/dl - Exam Constitutional: Present: Cooperative, Well nourished, No distress, Other - bipap ENT Exam: Present: normal ENT inspection, hearing grossly normal Neck: Absent: lymphadenopathy (R), lymphadenopathy (L), thyromegaly Breasts: Present: Exam deferred Respiratory: Present: lungs clear, other - slight increased work of breathing. seems better than yesterday Cardiovascular/Chest: Present: regular rate, rhythm, no JVD, no murmur, tachycardia, edema Abdomen: Present: Normal bowel sounds, soft, nontender, nondistended, no hepatospenomegaly, no masses, obese. Absent: tender /Rectal: Present: Exam deferred Extremity: Present: normal capillary refill, lower extremity edema Skin Exam: Present: normal color, warm/dry, no cyanosis, other - no rash right had. had, but cleared up Lymphatic: Present: no adenopathy Neurologic: Present: other - sleepy Appearance: Present: appropriate appearance, neat Cauti Physician Documentation - Urinary Catheter Management Urethral (Lombardi) Date of Insertion: 04/15/20 Time of Insertion: 11:35 Assessment/Plan - Problems/Diagnosis (1) Allergic reaction caused by a drug Problem: Acute Qualifiers: Encounter type: initial encounter Qualified Code(s): T78.40XA - Allergy, unspecified, initial encounter Narrative: hives in response to Cefipime. switch to Aztreonam. (2) Pneumonia Problem: Acute Qualifiers: Pneumonia type: due to methicillin-sensitive Staphylococcus aureus (MSSA) Laterality: bilateral Lung location: unspecified part of lung Qualified Code(s): J15.211 - Pneumonia due to Methicillin susceptible Staphylococcus aureus Narrative: seems a little better. continue antibiotics and supportive care. (3) MSSA (methicillin susceptible Staphylococcus aureus) pneumonia Problem: Ruled-out Qualifiers: Laterality: bilateral Lung location: unspecified part of lung Qualified Code(s): J15.211 - Pneumonia due to Methicillin susceptible Staphylococcus aureus (4) CHF (congestive heart failure) Problem: Ruled-out Qualifiers: Heart failure type: systolic Heart failure chronicity: acute on chronic Qualified Code(s): I50.23 - Acute on chronic systolic (congestive) heart failure (5) Hypoxia Problem: Resolved Narrative: seems better. continue bipap and O2. adjust based on clinical findings and ABGs. (6) Anemia Problem: Chronic Qualifiers: Anemia type: bone marrow failure Bone marrow failure anemia type: unspecified bone marrow failure Qualified Code(s): D61.9 - Aplastic anemia, unspecified Narrative: hgb 6.5 this morning, therefor acute on chronic. this is the lowest it has been this admission. we will transfuse 2 units. (7) Chronic respiratory failure with hypoxia Problem: Chronic (8) Hypoalbuminemia Problem: Chronic (9) Vitamin D deficiency Problem: Chronic (10) Malignant neoplasm of upper lobe, right bronchus or lung Problem: Chronic (11) BMI 39.0-39.9,adult Problem: Resolved (12) Tricuspid regurgitation Problem: Chronic Qualifiers: Cardiac valve disease etiology: etiology unspecified Qualified Code(s): I07.1 - Rheumatic tricuspid insufficiency (13) (HFpEF) heart failure with preserved ejection fraction Problem: Chronic Qualifiers: Heart failure chronicity: acute on chronic Qualified Code(s): I50.33 - Acute on chronic diastolic (congestive) heart failure (14) Chronic myeloproliferative disease Problem: Chronic
[2020-04-16] MEDS: PANTOPRAZOLE SODIUM 20 MG TABLET.DR PO SCH ×2 (07:07→20:27)
[2020-04-16 07:13] LABS: Atypical (Reactive) Lymph 22 % (0-2); Band 1 % (0-2.0); Eosinophil 2 % (0-3); Lymphocyte 6 % (20-51); Monocyte 11 % (0-9); Neutrophil 58 % (42-75); Neutrophil # 5.9 K/mm3 (1.3-6.0)
[2020-04-16 07:14] LABS: Platelet Estimate Normal (NORMAL)
[2020-04-16 07:15] LABS: Hypersegmented Polys Trace; Hypochromia 1+; Poikilocytosis Trace; Polychromasia 1+
[2020-04-16 07:16] LABS: Tear Drop Cells Trace
[2020-04-16] MEDS ORDERED: diphenhydrAMINE HCL 50 MG/ML VIAL ONE (08:06)
[2020-04-16] MEDS: FOLIC ACID 1 MG TABLET PO SCH (08:26)
[2020-04-16] MEDS: AZTREONAM IV SCH ×6 (08:34→23:34)
[2020-04-16] MEDS: WATER IV SCH ×6 (08:34→23:34)
[2020-04-16] MEDS: DEXTROSE 5% IV SCH ×6 (08:34→23:34)
[2020-04-16] MEDS: FLUTICASONE PROPION/SALMETEROL 14 PUFF DISK.W.DEV IH SCH ×2 (09:12→20:33)
[2020-04-16] MEDS: DICLOFENAC SODIUM 100 APPL TUBE TP SCH ×4 (09:13→20:26)
[2020-04-16] MEDS: ASPIRIN 81 MG TABLET.DR PO SCH (09:54)
[2020-04-16] MEDS: NYSTATIN 15 APPL BTL TP SCH ×2 (10:56→20:26)
[2020-04-16] MEDS: CHOLECALCIFEROL 5,000 UNIT TABLET PO SCH (10:56)
[2020-04-16] MEDS: BUDESONIDE 0.5 MG/2 ML VIAL.NEB IH SCH ×3 (13:05→18:27)
[2020-04-16] MEDS: VANCOMYCIN/WATER FOR INJ (PEG) 1 GM/200 ML BAG IV SCH (14:25)
[2020-04-16] MEDS: ENOXAPARIN SODIUM 40 MG/0.4 ML SYRG SC SCH (20:26)
[2020-04-17] MEDS: ALBUTEROL SULFATE 2.5 MG/0.5 ML VIAL.NEB IH SCH ×5 (00:23→18:47)
[2020-04-17] MEDS: DILTIAZEM HCL 60 MG TABLET PO SCH ×4 (00:49→23:35)
[2020-04-17] MEDS: BUDESONIDE 0.5 MG/2 ML VIAL.NEB IH SCH ×3 (05:35→18:48)
[2020-04-17 06:32] LABS: Hematocrit 26.5 % (37.0-47.0); Hemoglobin 8.2 gm/dL (12.5-16.0); Mean Cell Volume 96.4 fl (78-100); Mean Corpuscular Hemoglobin 29.8 pg (27-31); Mean Corpuscular Hgb Conc 30.9 g/dl (32-36); Mean Platelet Volume 10.1 fl (8-12.5); Platelet Count 241 K/mm3 (150-450); Red Blood Count 2.75 M/mm3 (4.2-5.4); Red Cell Distribution Width 18.4 % (11.5-14.0); White Blood Count 10.6 K/mm3 (4.0-10.5)
--- NOTE | 2020-04-17 07:02 | PN ---
Subjective - Date and Time Seen Date: 04/17/20 Time: 06:30 Subjective Narrative: Bipap on. Awake and we could have an actual conversation, more comfortable than yesterday morning. here with pneumonia and HFpEF. GFR low and stable. we continue to follow. albumin low. will add nutritional supplements. No more rash. We will continue Aztreonam and continue Vancomycin. That means she will need to be in a facility capable of IV treatment for a while. I think her last pneumonia treatment was too short, therefor we will give 14 days of IV antibiotics starting 3 days ago. History of asthma.Lungs clear this morning. heart rate a little fast, but stable. continue current dose of diltiazem for now. bp ok. we will continue to monitor. we will stop foely. wbc is normal today. we will continue antibiotics and continue supportive care. Hgb is 8.2 after 2 units packed cells this morning. we will continue to monitor. she is clearly much better today. we will walk in halls with help as tolerated. Objective - Review of Systems Generalized/Overall Review: Reports: Weakness EENTM: Reports: No Symptoms Reported Respiratory: Reports: No Symptoms Reported Cardiac: Reports: Edema - chronic and stable Abdominal: Reports: No Symptoms Reported Genitourinary Symptoms: Reports: No Symptoms Reported Musculoskeletal Complaints: Reports: No Symptoms Reported Neurological: Reports: No Symptoms Reported Skin: Reports: No Symptoms Reported Endocrine: Reports: No Symptoms Reported Misc: All systems neg except as marked - Vitals Vitals: Last Vital Signs Temp 35.8 C L 04/17/20 06:50 Pulse 114 H 04/17/20 06:50 Resp 27 H 04/17/20 05:59 BP 115/66 04/17/20 06:50 Pulse Ox 98 04/17/20 06:50 - Abnormal Lab Findings Abnormal Lab Findings: Abnormal Lab Results 04/16/20 04/16/20 04/17/20 Range/Units 06:00 07:15 06:15 WBC 10.6 H (4.0-10.5) K/mm3 RBC 2.75 L (4.2-5.4) M/mm3 Hgb 8.2 L (12.5-16.0) gm/dL Hct 26.5 L (37.0-47.0) % MCHC 30.9 L (32-36) g/dl RDW 18.4 H (11.5-14.0) % Lymphocytes % (Manual) 6 L (20-51) % Monocytes % (Manual) 11 H (0-9) % Lymphocytes # (Manual) 0.6 L (1.5-3.5) k/mm3 Monocytes # (Manual) 1.1 H (0.0-1.0) k/mm3 Nucleated RBCs 3.0 H (0-1) % Atypic/Reactive Lymphs 22 H (0-2) % Crossmatch See Detail - Exam Constitutional: Present: Alert, Oriented x3, Cooperative, Well developed, No distress, Obese ENT Exam: Present: normal ENT inspection, hearing grossly normal Neck: Present: normal inspection Breasts: Present: Exam deferred Respiratory: Present: lungs clear, no respiratory distress Cardiovascular/Chest: Present: regular rate, rhythm, no gallop, no murmur Abdomen: Present: Normal bowel sounds, soft, nontender, nondistended, no hepatospenomegaly, no masses, obese /Rectal: Present: Exam deferred Extremity: Present: normal capillary refill, other - edema, but stable and not severe Skin Exam: Present: normal color, warm/dry, no cyanosis Neurologic: Present: alert, normal mood/affect Appearance: Present: appropriate appearance, appropriate insight, neat Eye contact: Present: cooperative, good eye contact, normal speech Thoughts: Present: normal thought pattern Cauti Physician Documentation - Urinary Catheter Management Urethral (Jones) Date of Insertion: 04/15/20 Time of Insertion: 11:35 Assessment/Plan - Problems/Diagnosis (1) Allergic reaction caused by a drug Problem: Resolved Qualifiers: Encounter type: initial encounter Qualified Code(s): T78.40XA - Allergy, unspecified, initial encounter (2) Pneumonia Problem: Acute Qualifiers: Pneumonia type: due to methicillin-sensitive Staphylococcus aureus (MSSA) Laterality: bilateral Lung location: unspecified part of lung Qualified Code(s): J15.211 - Pneumonia due to Methicillin susceptible Staphylococcus aureus Narrative: better. 14 days of IV antibiotics. (3) MSSA (methicillin susceptible Staphylococcus aureus) pneumonia Problem: Ruled-out Qualifiers: Laterality: bilateral Lung location: unspecified part of lung Qualified Code(s): J15.211 - Pneumonia due to Methicillin susceptible Staphylococcus aureus (4) CHF (congestive heart failure) Problem: Chronic Qualifiers: Heart failure type: systolic Heart failure chronicity: chronic Qualified Code(s): I50.22 - Chronic systolic (congestive) heart failure Narrative: HFpEF. stable. renal failure. seems stable right now. monitor. need to be careful about how much lasix if we restart it. (5) Hypoxia Problem: Resolved Narrative: improved. wean O2. (6) Anemia Problem: Chronic Qualifiers: Anemia type: bone marrow failure Bone marrow failure anemia type: unspecified bone marrow failure Qualified Code(s): D61.9 - Aplastic anemia, unspecified Narrative: monitor (7) Chronic respiratory failure with hypoxia Problem: Chronic (8) Hypoalbuminemia Problem: Chronic Narrative: 3 nutitional supplements (9) Vitamin D deficiency Problem: Chronic (10) Malignant neoplasm of upper lobe, right bronchus or lung Problem: Resolved Narrative: being monitored by oncology. several years ago. (11) BMI 39.0-39.9,adult Problem: Resolved (12) Tricuspid regurgitation Problem: Chronic Qualifiers: Cardiac valve disease etiology: etiology unspecified Qualified Code(s): I07.1 - Rheumatic tricuspid insufficiency (13) (HFpEF) heart failure with preserved ejection fraction Problem: Chronic Qualifiers: Heart failure chronicity: acute on chronic Qualified Code(s): I50.33 - Acute on chronic diastolic (congestive) heart failure (14) Chronic myeloproliferative disease Problem: Chronic
[2020-04-17] MEDS: PANTOPRAZOLE SODIUM 20 MG TABLET.DR PO SCH ×2 (07:26→20:03)
[2020-04-17] MEDS: DEXTROSE 5% IV SCH ×6 (07:27→23:34)
[2020-04-17] MEDS: FLUTICASONE PROPION/SALMETEROL 14 PUFF DISK.W.DEV IH SCH ×2 (07:27→19:56)
[2020-04-17] MEDS: AZTREONAM IV SCH ×6 (07:27→23:34)
[2020-04-17] MEDS: WATER IV SCH ×6 (07:27→23:34)
[2020-04-17] MEDS: CHOLECALCIFEROL 5,000 UNIT TABLET PO SCH (08:13)
[2020-04-17] MEDS: FOLIC ACID 1 MG TABLET PO SCH (08:13)
[2020-04-17] MEDS: NYSTATIN 15 APPL BTL TP SCH ×3 (08:13→20:03)
[2020-04-17] MEDS: ASPIRIN 81 MG TABLET.DR PO SCH (08:13)
[2020-04-17] MEDS: DICLOFENAC SODIUM 100 APPL TUBE TP SCH ×4 (08:13→20:00)
[2020-04-17] MEDS: LORATADINE 10 MG TABLET PO SCH ×2 (10:32→20:03)
[2020-04-17] MEDS: VANCOMYCIN/WATER FOR INJ (PEG) 1 GM/200 ML BAG IV SCH (10:32)
[2020-04-17] MEDS: ENOXAPARIN SODIUM 40 MG/0.4 ML SYRG SC SCH (19:56)
[2020-04-18] MEDS: ALBUTEROL SULFATE 2.5 MG/0.5 ML VIAL.NEB IH SCH ×4 (00:04→18:18)
[2020-04-18] MEDS: BUDESONIDE 0.5 MG/2 ML VIAL.NEB IH SCH ×2 (05:59→18:18)
[2020-04-18 06:25] LABS: Hemoglobin 8.5 gm/dL (12.5-16.0); Mean Cell Volume 97.2 fl (78-100); Mean Corpuscular Hemoglobin 29.5 pg (27-31); Mean Corpuscular Hgb Conc 30.4 g/dl (32-36); Mean Platelet Volume 9.6 fl (8-12.5); Platelet Count 250 K/mm3 (150-450); Red Blood Count 2.88 M/mm3 (4.2-5.4); Red Cell Distribution Width 18.2 % (11.5-14.0); White Blood Count 13.3 K/mm3 (4.0-10.5)
[2020-04-18 06:49] LABS: Anion Gap 10.1 mmol/L (6.8-13.8); BUN/Creatinine Ratio 27.3 (9.0-21.6); Carbon Dioxide 30.1 mmol/L (24-32.6); Estimated Creat Clear 31.3; Potassium 4.2 mmol/L (3.4-4.6)
--- NOTE | 2020-04-18 06:55 | PN ---
Subjective - Date and Time Seen Date: 04/18/20 Time: 06:00 Subjective Narrative: O2 by nasal canula. Awake and looks the best she has since admission. here with pneumonia and HFpEF. GFR low and down a little bit. she had been on lasix in the past, but we have held it now because her GFR was dropping lower than it is now and because her main problem at the present time is pneumonia not heart failure. I discussed this with her this morning. we will continue to follow. albumin low. she is taking nutritional supplements. We will continue Aztreonam and continue Vancomycin. She began improving after we started that combination 4 days ago. That means she will need IV antibiotics for a total of 14 days. There are no good similar oral choices. She was not doing well on Levaquin and she is allergic to penicillin (and now cephalosporins...cefipime caused a hives). I think her last pneumonia treatment was too short, therefor we will give 14 days of IV antibiotics starting 4 days ago. History of asthma. Lungs clear this morning. heart rate a little faster, low 120s. bp fairly stable, low teens. we will increase a small bit her dose of diltiazem for now for rate control. we stopped her beta marina because of asthma and dyspnea. we will continue to monitor. wbc is slightly elevated today. we will continue antibiotics, continue supportive care and continue to monitor. Hgb is stable. she usually has a hgb about 8 because of her myelodysplasia. she had been on medication for her marrow problem, but her hem/onc doctor held it last month. I communicated with him, and the plan is to wait and see what her blood count is the third week of this month. If her hgb drops below 7, she will need more blood. we will continue to monitor. she is clearly much better today. we will continue to have her walking in halls with help as tolerated. she reports she is eating well. Objective - Review of Systems Generalized/Overall Review: Reports: Weakness EENTM: Reports: No Symptoms Reported Respiratory: Reports: Other - green Cardiac: Reports: Edema - chronic, stable, not bad for her, both arms and legs Abdominal: Reports: No Symptoms Reported Genitourinary Symptoms: Reports: No Symptoms Reported, Incontinent - chronic Musculoskeletal Complaints: Reports: No Symptoms Reported Neurological: Reports: No Symptoms Reported Skin: Reports: Bruising - resolving well Endocrine: Reports: No Symptoms Reported Misc: All systems neg except as marked - Vitals Vitals: Last Vital Signs Temp 36.5 C 04/18/20 02:25 Pulse 125 H 04/18/20 06:09 Resp 28 H 04/18/20 06:09 BP 118/58 04/18/20 02:25 Pulse Ox 91 L 04/18/20 05:59 - Abnormal Lab Findings Abnormal Lab Findings: Abnormal Lab Results 04/17/20 04/18/20 Range/Units 06:15 06:00 WBC 10.6 H 13.3 H D (4.0-10.5) K/mm3 RBC 2.75 L 2.88 L (4.2-5.4) M/mm3 Hgb 8.2 L 8.5 L (12.5-16.0) gm/dL Hct 26.5 L 28.0 L (37.0-47.0) % MCHC 30.9 L 30.4 L (32-36) g/dl RDW 18.4 H 18.2 H (11.5-14.0) % - Exam Constitutional: Present: Alert, Oriented x3, Cooperative, Well developed, No distress, Obese ENT Exam: Present: normal ENT inspection, hearing grossly normal Neck: Absent: lymphadenopathy (R), lymphadenopathy (L), thyromegaly Breasts: Present: Exam deferred Respiratory: Present: lungs clear, no respiratory distress Cardiovascular/Chest: Present: regular rate, rhythm, no gallop, no JVD, no murmur, tachycardia Abdomen: Present: Normal bowel sounds, soft, nontender, nondistended, no hepatospenomegaly, no masses, obese /Rectal: Present: Exam deferred Extremity: Present: normal capillary refill, pedal edema Skin Exam: Present: normal color, warm/dry, no cyanosis Lymphatic: Present: no adenopathy Neurologic: Present: normal mood/affect - cheerful Appearance: Present: appropriate appearance, appropriate insight, neat Eye contact: Present: cooperative, good eye contact, normal speech Thoughts: Present: normal thought pattern Cauti Physician Documentation - Urinary Catheter Management Urethral (Jones) Date of Insertion: 04/15/20 Time of Insertion: 11:35 Date of Removal: 04/17/20 Time of Removal: 07:50 Assessment/Plan - Problems/Diagnosis (1) Allergic reaction caused by a drug Problem: Resolved Qualifiers: Encounter type: initial encounter Qualified Code(s): T78.40XA - Allergy, unspecified, initial encounter (2) Pneumonia Problem: Acute Qualifiers: Laterality: bilateral Lung location: unspecified part of lung Narrative: continue IV antibiotics for a total of fourteen days. (3) Tachycardia Problem: Chronic Narrative: increase diltiazem slightly. stopped beta marina because of asthma and increasing dyspnea (though that was most likely, in retrospect, due to worsening pneumonia). (4) MSSA (methicillin susceptible Staphylococcus aureus) pneumonia Problem: Ruled-out Qualifiers: Laterality: bilateral Lung location: unspecified part of lung Qualified Code(s): J15.211 - Pneumonia due to Methicillin susceptible Staphylococcus aureus (5) CHF (congestive heart failure) Problem: Chronic Qualifiers: Heart failure type: systolic Heart failure chronicity: chronic Qualified Code(s): I50.22 - Chronic systolic (congestive) heart failure Narrative: monitor. resume lasix if necessary. recommend starting dose of 20 mg daily and monitoring of GFR carefully, as lasix worsened it recently. (6) Hypoxia Problem: Chronic Narrative: O2 nasal canula. wean as able. (7) Anemia Problem: Chronic Qualifiers: Anemia type: bone marrow failure Bone marrow failure anemia type: unspecified bone marrow failure Qualified Code(s): D61.9 - Aplastic anemia, unspecified Narrative: monitor. transfuse 2 units if hgb drops below 7. (8) Chronic respiratory failure with hypoxia Problem: Chronic (9) Hypoalbuminemia Problem: Chronic (10) Vitamin D deficiency Problem: Chronic (11) Malignant neoplasm of upper lobe, right bronchus or lung Problem: Resolved (12) BMI 39.0-39.9,adult Problem: Resolved (13) Tricuspid regurgitation Problem: Chronic Qualifiers: Cardiac valve disease etiology: etiology unspecified Qualified Code(s): I07.1 - Rheumatic tricuspid insufficiency (14) (HFpEF) heart failure with preserved ejection fraction Problem: Chronic Qualifiers: Heart failure chronicity: acute on chronic Qualified Code(s): I50.33 - Acute on chronic diastolic (congestive) heart failure (15) Chronic myeloproliferative disease Problem: Chronic
[2020-04-18] MEDS: AZTREONAM IV SCH ×6 (07:36→23:15)
[2020-04-18] MEDS: PANTOPRAZOLE SODIUM 20 MG TABLET.DR PO SCH ×2 (07:36→20:02)
[2020-04-18] MEDS: DILTIAZEM HCL 60 MG TABLET PO SCH ×3 (07:36→18:39)
[2020-04-18] MEDS: WATER IV SCH ×6 (07:36→23:15)
[2020-04-18] MEDS: DEXTROSE 5% IV SCH ×6 (07:36→23:15)
[2020-04-18] MEDS: FLUTICASONE PROPION/SALMETEROL 14 PUFF DISK.W.DEV IH SCH ×2 (07:38→18:44)
[2020-04-18] MEDS: NYSTATIN 15 APPL BTL TP SCH ×2 (08:18→20:02)
[2020-04-18] MEDS: ASPIRIN 81 MG TABLET.DR PO SCH (08:19)
[2020-04-18] MEDS: DICLOFENAC SODIUM 100 APPL TUBE TP SCH ×4 (08:19→20:02)
[2020-04-18] MEDS: CHOLECALCIFEROL 5,000 UNIT TABLET PO SCH (08:19)
[2020-04-18] MEDS: LORATADINE 10 MG TABLET PO SCH ×2 (08:19→20:02)
[2020-04-18] MEDS: FOLIC ACID 1 MG TABLET PO SCH (08:19)
[2020-04-18] MEDS: VANCOMYCIN/WATER FOR INJ (PEG) 1 GM/200 ML BAG IV SCH (11:59)
[2020-04-18] MEDS: ENOXAPARIN SODIUM 40 MG/0.4 ML SYRG SC SCH (20:01)
[2020-04-19] MEDS: DILTIAZEM HCL 60 MG TABLET PO SCH ×4 (01:31→20:09)
[2020-04-19] MEDS: ALBUTEROL SULFATE 2.5 MG/0.5 ML VIAL.NEB IH SCH ×5 (01:35→18:28)
[2020-04-19 06:47] LABS: Hemoglobin 8.8 gm/dL (12.5-16.0); Mean Cell Volume 97.3 fl (78-100); Mean Corpuscular Hemoglobin 29.5 pg (27-31); Mean Corpuscular Hgb Conc 30.3 g/dl (32-36); Mean Platelet Volume 9.5 fl (8-12.5); Platelet Count 261 K/mm3 (150-450); Red Blood Count 2.98 M/mm3 (4.2-5.4); Red Cell Distribution Width 18.2 % (11.5-14.0); White Blood Count 14.1 K/mm3 (4.0-10.5)
[2020-04-19] MEDS: AZTREONAM IV SCH ×6 (07:05→23:30)
[2020-04-19] MEDS: DEXTROSE 5% IV SCH ×6 (07:05→23:30)
[2020-04-19] MEDS: WATER IV SCH ×6 (07:05→23:30)
[2020-04-19] MEDS: PANTOPRAZOLE SODIUM 20 MG TABLET.DR PO SCH ×2 (07:06→20:10)
[2020-04-19] MEDS: FLUTICASONE PROPION/SALMETEROL 14 PUFF DISK.W.DEV IH SCH ×2 (07:06→20:08)
[2020-04-19 07:12] LABS: BUN/Creatinine Ratio 29.7 (9.0-21.6); Calcium * 8.7 mg/dL (7.9-10.9); Carbon Dioxide 30.3 mmol/L (24-32.6); Estimated Creat Clear 36.7; Potassium 4.3 mmol/L (3.4-4.6)
--- NOTE | 2020-04-19 09:03 | PN ---
Subjective - Date and Time Seen Date: 04/19/20 Time: 07:15 Subjective Narrative: Received call from nursing overnight regarding multiple diarrheal stools resembling c diff, but the test was negative. She reports feeling like her breathing is unchanged from the last few days. She is pursed lip breathing, and reports she has been breathing like this since she had COVID in November. Objective - Review of Systems Generalized/Overall Review: Denies: Fever Respiratory: Reports: Shortness of Breath Cardiac: Denies: Chest Pain Abdominal: Reports: No Symptoms Reported Genitourinary Symptoms: Reports: No Symptoms Reported - Vitals Vitals: Last Vital Signs Temp 36.5 C 04/19/20 06:13 Pulse 117 H 04/19/20 07:06 Resp 30 H 04/19/20 06:13 BP 132/64 04/19/20 07:06 Pulse Ox 92 L 04/19/20 06:13 - Abnormal Lab Findings Abnormal Lab Findings: Abnormal Lab Results 04/19/20 04/19/20 Range/Units 06:40 06:40 WBC 14.1 H (4.0-10.5) K/mm3 RBC 2.98 L (4.2-5.4) M/mm3 Hgb 8.8 L (12.5-16.0) gm/dL Hct 29.0 L (37.0-47.0) % MCHC 30.3 L (32-36) g/dl RDW 18.2 H (11.5-14.0) % BUN 38 H (3-23) mg/dL Est GFR (Non-Af Amer) 43 L (60-130) mL/min BUN/Creatinine Ratio 29.7 H (9.0-21.6) - Exam Constitutional: Present: Alert, Obese Respiratory: Present: other - pursed lip breathing. mild increased work of breathing. oxygenating in low 90's on 2 L O2 via NC Cardiovascular/Chest: Present: tachycardia - HR 117-125 Abdomen: Present: soft Extremity: Absent: lower extremity edema Eye contact: Present: cooperative, good eye contact Cauti Physician Documentation - Urinary Catheter Management Urethral (Jones) Date of Insertion: 04/15/20 Time of Insertion: 11:35 Date of Removal: 04/17/20 Time of Removal: 07:50 Assessment/Plan Plan Narrative: Today is day 11 of hospitalization for pneumonia. She had COVID in November, and she reports she hasn't felt well since that diagnosis. She was also recently hospitalized at [facility], also for pneumonia. She had been improving, and her condition appears to be similar to yesterday, though she still has increased work of breathing. Several antibiotic changes have occurred this admission for allergic reactions and worsened renal function. Her renal function is improved today, with creatinine of 1.28 and GFR of 43, which are similar to her admission labs. Her WBC had improved, but is now increasing over the past 3 days. WBC was 14.1 today, and 13.3 yesterday. With the difficulty finding an antibiotic, will not change today, but if her WBC increases tomorrow or she spikes a fever, will again adjust agents. Her tachycardia could also be contributing to her shortness of breath. Her cardizem dose was just adjusted yesterday, so will give that some more time. If her HR is still greater than 110 and she's still SOB tomorrow, will increased her cardizem dose. Will try to find echo results and notes from her [facility] hospitalization. - Problems/Diagnosis (1) Recurrent pneumonia Problem: Acute (2) Chronic respiratory failure with hypoxia Problem: Chronic (3) (HFpEF) heart failure with preserved ejection fraction Problem: Chronic Qualifiers: Heart failure chronicity: acute on chronic Qualified Code(s): I50.33 - Acute on chronic diastolic (congestive) heart failure (4) Unspecified asthma, uncomplicated Problem: Acute (5) Other cardiomyopathies Problem: Acute (6) Polycythemia vera Problem: Acute (7) Malignant neoplasm of upper lobe, right bronchus or lung Problem: Resolved (8) Left ventricular failure, unspecified Problem: Acute (9) Chronic myeloproliferative disease Problem: Chronic (10) Thrombocytopenia Problem: Acute (11) Adenocarcinoma Problem: Acute (12) Asthma Problem: Acute (13) Benign hypertension Problem: Acute (14) CKD (chronic kidney disease) stage 3, GFR 30-59 ml/min Problem: Chronic (15) Mild cognitive disorder Problem: Chronic (16) Schizoid personality disorder Problem: Chronic (17) Alzheimer disease Problem: Chronic
[2020-04-19] MEDS: LORATADINE 10 MG TABLET PO SCH ×2 (09:12→20:10)
[2020-04-19] MEDS: FOLIC ACID 1 MG TABLET PO SCH (09:12)
[2020-04-19] MEDS: NYSTATIN 15 APPL BTL TP SCH ×2 (09:12→20:10)
[2020-04-19] MEDS: DICLOFENAC SODIUM 100 APPL TUBE TP SCH ×4 (09:12→20:10)
[2020-04-19] MEDS: CHOLECALCIFEROL 5,000 UNIT TABLET PO SCH (09:12)
[2020-04-19] MEDS: ASPIRIN 81 MG TABLET.DR PO SCH (09:12)
[2020-04-19] MEDS: BUDESONIDE 0.5 MG/2 ML VIAL.NEB IH SCH ×3 (09:14→18:27)
[2020-04-19] MEDS: VANCOMYCIN/WATER FOR INJ (PEG) 1 GM/200 ML BAG IV SCH (10:48)
[2020-04-19] MEDS: ENOXAPARIN SODIUM 40 MG/0.4 ML SYRG SC SCH (20:09)
[2020-04-19] MEDS: ALBUTEROL SULFATE 2.5 MG/0.5 ML VIAL.NEB IH PRN (20:55)
[2020-04-20] MEDS: ALBUTEROL SULFATE 2.5 MG/0.5 ML VIAL.NEB IH SCH ×5 (01:27→18:07)
[2020-04-20] MEDS: DILTIAZEM HCL 60 MG TABLET PO SCH ×4 (01:35→18:49)
[2020-04-20] MEDS: ALBUTEROL SULFATE 2.5 MG/0.5 ML VIAL.NEB IH PRN ×2 (04:53→19:31)
[2020-04-20] MEDS: BUDESONIDE 0.5 MG/2 ML VIAL.NEB IH SCH ×3 (06:00→18:07)
[2020-04-20 06:31] LABS: Hematocrit 28.6 % (37.0-47.0); Hemoglobin 8.7 gm/dL (12.5-16.0); Mean Cell Volume 97.3 fl (78-100); Mean Corpuscular Hemoglobin 29.6 pg (27-31); Mean Corpuscular Hgb Conc 30.4 g/dl (32-36); Mean Platelet Volume 9.8 fl (8-12.5); Platelet Count 256 K/mm3 (150-450); Red Blood Count 2.94 M/mm3 (4.2-5.4); Red Cell Distribution Width 18.3 % (11.5-14.0); White Blood Count 14.4 K/mm3 (4.0-10.5)
[2020-04-20 06:35] LABS: Total Cells Counted 100
[2020-04-20 06:43] LABS: Albumin * 2.1 gm/dl (3.4-5.0); Anion Gap 9.9 mmol/L (6.8-13.8); BUN/Creatinine Ratio 32.6 (9.0-21.6); Bilirubin, Total 0.6 mg/dL (0.0-1.1); Ca. Corrected For Albumin 10.3 mg/dL (8.4-10.2); Calcium * 9.1 mg/dL (7.9-10.9); Carbon Dioxide 30.5 mmol/L (24-32.6); Potassium 4.4 mmol/L (3.4-4.6); Total Protein 6.2 gm/dL (6.2-8.2)
[2020-04-20 06:46] LABS: Atypical (Reactive) Lymph 15 % (0-2); Eosinophil 1 % (0-3); Lymphocyte 16 % (20-51); Monocyte 4 % (0-9); Neutrophil 64 % (42-75); Neutrophil # 9.2 K/mm3 (1.3-6.0)
[2020-04-20 06:47] LABS: Platelet Estimate Normal (NORMAL); RBC Morphology Normal (NORMAL)
[2020-04-20] MEDS: AZTREONAM IV SCH ×6 (07:35→23:28)
[2020-04-20] MEDS: WATER IV SCH ×6 (07:35→23:28)
[2020-04-20] MEDS: FLUTICASONE PROPION/SALMETEROL 14 PUFF DISK.W.DEV IH SCH ×2 (07:35→18:49)
[2020-04-20] MEDS: DEXTROSE 5% IV SCH ×6 (07:35→23:28)
[2020-04-20] MEDS: PANTOPRAZOLE SODIUM 20 MG TABLET.DR PO SCH ×2 (07:36→20:45)
[2020-04-20] MEDS: ASPIRIN 81 MG TABLET.DR PO SCH (08:13)
[2020-04-20] MEDS: FOLIC ACID 1 MG TABLET PO SCH (08:14)
[2020-04-20] MEDS: LORATADINE 10 MG TABLET PO SCH ×2 (08:14→20:45)
[2020-04-20] MEDS: NYSTATIN 15 APPL BTL TP SCH ×2 (08:14→20:46)
[2020-04-20] MEDS: DICLOFENAC SODIUM 100 APPL TUBE TP SCH ×4 (08:14→20:46)
[2020-04-20] MEDS: CHOLECALCIFEROL 5,000 UNIT TABLET PO SCH (08:14)
[2020-04-20] MEDS: METHYLPREDNISOLONE SOD SUCC/PF 125 MG/2 ML VIAL IV SCH ×3 (11:17→23:27)
[2020-04-20] MEDS: metroNIDAZOLE/SODIUM CHLORIDE 500 MG/100 ML BAG IV SCH ×2 (11:18→18:48)
--- NOTE | 2020-04-20 12:23 | PN ---
Subjective - Date and Time Seen Date: 04/20/20 Time: 09:30 Subjective Narrative: Patient feels like she is maybe better than yesterday. However, nursing overnight needed to use the oxymask to maintain her oxygen. She reports being off oxygen for a time in March, and did not have this increased work of breathing that she has now. Otherwise no new concerns. She is able to ambulate only to the bedside commode, but not to the bathroom. Objective - Review of Systems Generalized/Overall Review: Reports: Weakness. Denies: Fever Respiratory: Reports: Shortness of Breath Cardiac: Denies: Chest Pain, Edema Abdominal: Reports: No Symptoms Reported Genitourinary Symptoms: Reports: No Symptoms Reported - Vitals Vitals: Last Vital Signs Temp 36.7 C 04/20/20 11:58 Pulse 122 H 04/20/20 11:58 Resp 36 H 04/20/20 11:58 BP 106/63 04/20/20 11:58 Pulse Ox 98 04/20/20 11:58 - Abnormal Lab Findings Abnormal Lab Findings: Abnormal Lab Results 04/20/20 04/20/20 Range/Units 06:25 06:25 WBC 14.4 H (4.0-10.5) K/mm3 RBC 2.94 L (4.2-5.4) M/mm3 Hgb 8.7 L (12.5-16.0) gm/dL Hct 28.6 L (37.0-47.0) % MCHC 30.4 L (32-36) g/dl RDW 18.3 H (11.5-14.0) % Lymphocytes % (Manual) 16 L (20-51) % Neutrophils # (Manual) 9.2 H (1.3-6.0) K/mm3 Atypic/Reactive Lymphs 15 H (0-2) % BUN 42 H (3-23) mg/dL Est GFR (Non-Af Amer) 42 L (60-130) mL/min BUN/Creatinine Ratio 32.6 H (9.0-21.6) Random Glucose 112 H (70-110) mg/dL Calcium Adj for Albumin 10.3 H (8.4-10.2) mg/dL ALT 13 L (19-67) U/L Albumin 2.1 L (3.4-5.0) gm/dl - Exam Constitutional: Present: Alert, Mild distress Respiratory: Present: lungs clear, other - tachypneic Cardiovascular/Chest: Present: tachycardia Abdomen: Present: soft Extremity: Absent: lower extremity edema Neurologic: Present: normal mood/affect Eye contact: Present: cooperative, good eye contact Cauti Physician Documentation - Urinary Catheter Management Urethral (Jones) Date of Insertion: 04/15/20 Time of Insertion: 11:35 Date of Removal: 04/17/20 Time of Removal: 07:50 Assessment/Plan Plan Narrative: Today is day 12 of hospitalization for pneumonia. She had COVID in November, and she reports she hasn't felt well since that diagnosis. She was also recently hospitalized at [facility], also for pneumonia. Multiple antibiotic adjustments have been made since admission. She was initially on Levaquin, but was not improving. She was given cefepime but developed an allergic reaction by hives. She has been on aztreonam for several days. She subjectively feels better, but her white blood cell count is increasing. We will add gram-negative coverage with Flagyl. May also need to add antifungal coverage if she does not improve. She also has such significant increased work of breathing that we will also add steroids, which will skew her white blood cell count. She is oxygenating well currently on 2 L via nasal cannula. The Lasix was held for DAREN. Her renal function has improved, with a GFR of 42 and creatinine of 1.29 this morning. - Problems/Diagnosis (1) Recurrent pneumonia Problem: Acute (2) Chronic respiratory failure with hypoxia Problem: Chronic (3) (HFpEF) heart failure with preserved ejection fraction Problem: Chronic Qualifiers: Heart failure chronicity: acute on chronic Qualified Code(s): I50.33 - Acute on chronic diastolic (congestive) heart failure (4) Unspecified asthma, uncomplicated Problem: Acute (5) Other cardiomyopathies Problem: Acute (6) Polycythemia vera Problem: Acute (7) Malignant neoplasm of upper lobe, right bronchus or lung Problem: Resolved (8) Left ventricular failure, unspecified Problem: Acute (9) Chronic myeloproliferative disease Problem: Chronic (10) Thrombocytopenia Problem: Acute (11) Adenocarcinoma Problem: Acute (12) Asthma Problem: Acute (13) Benign hypertension Problem: Acute (14) CKD (chronic kidney disease) stage 3, GFR 30-59 ml/min Problem: Chronic (15) Mild cognitive disorder Problem: Chronic (16) Schizoid personality disorder Problem: Chronic (17) Alzheimer disease Problem: Chronic
[2020-04-20] MEDS: VANCOMYCIN/WATER FOR INJ (PEG) 1 GM/200 ML BAG IV SCH (12:43)
--- NOTE | 2020-04-20 13:16 | PN ---
Progesmiguel Note - Interim Date: 04/20/20 Time: 13:16 Narrative: 04/20/20 13:16 Her respiratory rate is increasing. Will check CXR and ABG.
[2020-04-20] MEDS: ENOXAPARIN SODIUM 40 MG/0.4 ML SYRG SC SCH (20:45)
[2020-04-21] MEDS: DILTIAZEM HCL 60 MG TABLET PO SCH ×4 (00:04→18:58)
[2020-04-21] MEDS: ALBUTEROL SULFATE 2.5 MG/0.5 ML VIAL.NEB IH SCH ×4 (00:16→18:11)
[2020-04-21] MEDS: metroNIDAZOLE/SODIUM CHLORIDE 500 MG/100 ML BAG IV SCH ×3 (03:44→18:58)
[2020-04-21] MEDS: METHYLPREDNISOLONE SOD SUCC/PF 125 MG/2 ML VIAL IV SCH ×4 (03:46→21:59)
[2020-04-21] MEDS: BUDESONIDE 0.5 MG/2 ML VIAL.NEB IH SCH ×3 (06:01→18:15)
[2020-04-21 06:48] LABS: Hematocrit 27.7 % (37.0-47.0); Hemoglobin 8.4 gm/dL (12.5-16.0); Mean Cell Volume 98.2 fl (78-100); Mean Corpuscular Hemoglobin 29.8 pg (27-31); Mean Corpuscular Hgb Conc 30.3 g/dl (32-36); Mean Platelet Volume 9.9 fl (8-12.5); Platelet Count 302 K/mm3 (150-450); Red Blood Count 2.82 M/mm3 (4.2-5.4); Red Cell Distribution Width 17.9 % (11.5-14.0); White Blood Count 15.6 K/mm3 (4.0-10.5)
[2020-04-21 06:53] LABS: Total Cells Counted 100
[2020-04-21 07:09] LABS: Eosinophil 1 % (0-3); Lymphocyte 15 % (20-51); Monocyte 8 % (0-9); Neutrophil 57 % (42-75); Neutrophil # 8.9 K/mm3 (1.3-6.0)
[2020-04-21 07:11] LABS: Ovalocytes Trace; Polychromasia Trace; Tear Drop Cells Trace
[2020-04-21 07:12] LABS: Poikilocytosis Trace
[2020-04-21 07:19] LABS: Atypical (Reactive) Lymph 19 % (0-2)
[2020-04-21 07:28] LABS: Albumin * 2.1 gm/dl (3.4-5.0); Anion Gap 8.7 mmol/L (6.8-13.8); BUN/Creatinine Ratio 32.7 (9.0-21.6); Bilirubin, Total 0.5 mg/dL (0.0-1.1); Ca. Corrected For Albumin 10.1 mg/dL (8.4-10.2); Calcium * 8.9 mg/dL (7.9-10.9); Potassium 4.7 mmol/L (3.4-4.6); Total Protein 6.2 gm/dL (6.2-8.2)
[2020-04-21] MEDS: ASPIRIN 81 MG TABLET.DR PO SCH (08:25)
[2020-04-21] MEDS: CHOLECALCIFEROL 5,000 UNIT TABLET PO SCH (08:25)
[2020-04-21] MEDS: LORATADINE 10 MG TABLET PO SCH ×2 (08:26→20:23)
[2020-04-21] MEDS: DICLOFENAC SODIUM 100 APPL TUBE TP SCH ×4 (08:26→20:23)
[2020-04-21] MEDS: FOLIC ACID 1 MG TABLET PO SCH (08:26)
[2020-04-21] MEDS: PANTOPRAZOLE SODIUM 20 MG TABLET.DR PO SCH ×2 (08:26→20:23)
[2020-04-21] MEDS: SACCHAROMYCES BOULARDII 250 MG CAPSULE PO SCH ×2 (08:26→20:23)
[2020-04-21] MEDS: NYSTATIN 15 APPL BTL TP SCH ×2 (08:27→20:23)
[2020-04-21] MEDS: WATER IV SCH ×6 (08:41→22:01)
[2020-04-21] MEDS: DEXTROSE 5% IV SCH ×6 (08:41→22:01)
[2020-04-21] MEDS: AZTREONAM IV SCH ×6 (08:41→22:01)
[2020-04-21] MEDS: FLUTICASONE PROPION/SALMETEROL 14 PUFF DISK.W.DEV IH SCH ×2 (08:59→18:58)
[2020-04-21] MEDS: VANCOMYCIN/WATER FOR INJ (PEG) 1 GM/200 ML BAG IV SCH (10:14)
--- NOTE | 2020-04-21 11:08 | PN ---
Subjective - Date and Time Seen Date: 04/21/20 Time: 06:40 Subjective Narrative: O2 by mask. Sleepy. Hard to wake. increased work of breathing this morning. here with pneumonia and HFpEF. GFR is a little worse, but so far in the last few days, fairly stable. she had b een on lasix in the past, but we have held it now because her GFR was dropping lower than it is now while on lasix and because her main problem at the present time seems to be pneumonia not heart failure. Dr. Cheng who was specification writer this weekend added metronidazole to her antibiotics. I will add Florastor. Dr. Cheng also wondered about a possible PE, so we will try to evaluate that today. We will continue Aztreonam and continue Vancomycin. History of asthma. Lungs clear this morning. heart rate in the low 100s. bp fairly stable, low teens. we will continue to monitor. wbc is more elevated today. we will continue antibiotics, continue supportive care and continue to monitor. she did better on bipap, so we will add that back. Yesterday she had a CXR which showed improving infiltrates. Objective - Review of Systems Generalized/Overall Review: Reports: Weakness EENTM: Reports: No Symptoms Reported Respiratory: Reports: Shortness of Breath Cardiac: Reports: Edema. Denies: Chest Pain Abdominal: Reports: No Symptoms Reported Genitourinary Symptoms: Reports: No Symptoms Reported Musculoskeletal Complaints: Reports: No Symptoms Reported Neurological: Reports: No Symptoms Reported Skin: Reports: Bruising - resolving nicely Endocrine: Reports: No Symptoms Reported Misc: All systems neg except as marked - Vitals Vitals: Last Vital Signs Temp 36.6 C 04/21/20 07:32 Pulse 106 H 04/21/20 09:14 Resp 28 H 04/21/20 07:32 BP 116/59 04/21/20 08:25 Pulse Ox 94 04/21/20 07:32 - Abnormal Lab Findings Abnormal Lab Findings: Abnormal Lab Results 04/20/20 04/21/20 04/21/20 Range/Units 13:55 06:30 06:30 WBC 15.6 H (4.0-10.5) K/mm3 RBC 2.82 L (4.2-5.4) M/mm3 Hgb 8.4 L (12.5-16.0) gm/dL Hct 27.7 L (37.0-47.0) % MCHC 30.3 L (32-36) g/dl RDW 17.9 H (11.5-14.0) % Lymphocytes % (Manual) 15 L (20-51) % Neutrophils # (Manual) 8.9 H (1.3-6.0) K/mm3 Monocytes # (Manual) 1.2 H (0.0-1.0) k/mm3 Nucleated RBCs 5.0 H (0-1) % Atypic/Reactive Lymphs 19 H (0-2) % pO2 55.4 L (83.0-108.0) mmHg Total CO2 28.3 H (19.0-24.0) mmol/L ABG O2 Sat (Measured) 89.6 L (94.0-98.0) % Potassium 4.7 H (3.4-4.6) mmol/L BUN 48 H (3-23) mg/dL Creatinine 1.47 H (0.4-1.4) mg/dL Est GFR (Non-Af Amer) 37 L (60-130) mL/min BUN/Creatinine Ratio 32.7 H (9.0-21.6) Random Glucose 181 H D (70-110) mg/dL ALT 16 L (19-67) U/L Albumin 2.1 L (3.4-5.0) gm/dl 04/21/20 Range/Units 08:14 WBC (4.0-10.5) K/mm3 RBC (4.2-5.4) M/mm3 Hgb (12.5-16.0) gm/dL Hct (37.0-47.0) % MCHC (32-36) g/dl RDW (11.5-14.0) % Lymphocytes % (Manual) (20-51) % Neutrophils # (Manual) (1.3-6.0) K/mm3 Monocytes # (Manual) (0.0-1.0) k/mm3 Nucleated RBCs (0-1) % Atypic/Reactive Lymphs (0-2) % pO2 49.3 L (83.0-108.0) mmHg Total CO2 26.2 H (19.0-24.0) mmol/L ABG O2 Sat (Measured) 86.7 L (94.0-98.0) % Potassium (3.4-4.6) mmol/L BUN (3-23) mg/dL Creatinine (0.4-1.4) mg/dL Est GFR (Non-Af Amer) (60-130) mL/min BUN/Creatinine Ratio (9.0-21.6) Random Glucose (70-110) mg/dL ALT (19-67) U/L Albumin (3.4-5.0) gm/dl - Exam Constitutional: Present: Well developed, Other - increased work of breathing. sleepy., Obese ENT Exam: Present: normal ENT inspection Neck: Absent: lymphadenopathy (R), lymphadenopathy (L), thyromegaly Breasts: Present: Exam deferred Respiratory: Present: lungs clear, other - mild increased work of breathing Cardiovascular/Chest: Present: regular rate, rhythm, tachycardia Abdomen: Present: Normal bowel sounds, soft, nontender, nondistended, no hepatospenomegaly, no masses, obese /Rectal: Present: Exam deferred Extremity: Present: normal capillary refill, lower extremity edema Skin Exam: Present: warm/dry, no cyanosis Lymphatic: Present: no adenopathy Neurologic: Present: oriented x 3 Appearance: Present: appropriate appearance Eye contact: Present: other - sleepy Cauti Physician Documentation - Urinary Catheter Management Urethral (Jones) Date of Insertion: 04/15/20 Time of Insertion: 11:35 Date of Removal: 04/17/20 Time of Removal: 07:50 Assessment/Plan - Problems/Diagnosis (1) Allergic reaction caused by a drug Problem: Resolved Qualifiers: Encounter type: initial encounter Qualified Code(s): T78.40XA - Allergy, unspecified, initial encounter (2) Pneumonia Problem: Acute Qualifiers: Laterality: bilateral Lung location: unspecified part of lung Narrative: clinically worse. cxr yesterday improved. now antibiotics are azactam, vancomycin and metronidazole. will continue these. allergic to pcn and cephalosporins. levofloxacin didn't help will resum BiPap as that helped last week. will monitor ABGs. (3) Tachycardia Problem: Chronic Narrative: mild. will monitor. (4) MSSA (methicillin susceptible Staphylococcus aureus) pneumonia Problem: Ruled-out Qualifiers: Laterality: bilateral Lung location: unspecified part of lung Qualified C ode(s): J15.211 - Pneumonia due to Methicillin susceptible Staphylococcus aureus (5) CHF (congestive heart failure) Problem: Chronic Qualifiers: Heart failure type: systolic Heart failure chronicity: chronic Qualified Code(s): I50.22 - Chronic systolic (congestive) heart failure (6) Hypoxia Problem: Chronic Narrative: resume bipap (7) Anemia Problem: Chronic Qualifiers: Anemia type: bone marrow failure Bone marrow failure anemia type: unspecified bone marrow failure Qualified Code(s): D61.9 - Aplastic anemia, unspecified Narrative: monitor labs. transfuse if less than 7. (8) Chronic respiratory failure with hypoxia Problem: Chronic Narrative: bipap (9) Hypoalbuminemia Problem: Chronic (10) Vitamin D deficiency Problem: Chronic (11) Malignant neoplasm of upper lobe, right bronchus or lung Problem: Resolved (12) BMI 39.0-39.9,adult Problem: Resolved (13) Tricuspid regurgitation Problem: Chronic Qualifiers: Cardiac valve disease etiology: etiology unspecified Qualified Code(s): I07.1 - Rheumatic tricuspid insufficiency (14) (HFpEF) heart failure with preserved ejection fraction Problem: Chronic Qualifiers: Heart failure chronicity: acute on chronic Qualified Code(s): I50.33 - Acute on chronic diastolic (congestive) heart failure (15) Chronic myeloproliferative disease Problem: Chronic
[2020-04-21] MEDS: ALBUTEROL SULFATE 2.5 MG/0.5 ML VIAL.NEB IH PRN (15:18)
[2020-04-21] MEDS: ENOXAPARIN SODIUM 40 MG/0.4 ML SYRG SC SCH (20:22)
[2020-04-22] MEDS: ALBUTEROL SULFATE 2.5 MG/0.5 ML VIAL.NEB IH SCH ×4 (00:07→19:01)
[2020-04-22] MEDS: DILTIAZEM HCL 60 MG TABLET PO SCH ×4 (01:26→19:59)
[2020-04-22] MEDS: metroNIDAZOLE/SODIUM CHLORIDE 500 MG/100 ML BAG IV SCH ×3 (01:47→19:03)
[2020-04-22] MEDS: METHYLPREDNISOLONE SOD SUCC/PF 125 MG/2 ML VIAL IV SCH (04:24)
[2020-04-22] MEDS: BUDESONIDE 0.5 MG/2 ML VIAL.NEB IH SCH ×2 (05:59→19:04)
[2020-04-22 06:22] LABS: Hematocrit 27.3 % (37.0-47.0); Hemoglobin 8.2 gm/dL (12.5-16.0); Mean Cell Volume 99.6 fl (78-100); Mean Corpuscular Hemoglobin 29.9 pg (27-31); Mean Platelet Volume 10.3 fl (8-12.5); Platelet Count 319 K/mm3 (150-450); Red Blood Count 2.74 M/mm3 (4.2-5.4); Red Cell Distribution Width 18.6 % (11.5-14.0)
[2020-04-22 06:24] LABS: Total Cells Counted 100
[2020-04-22 06:33] LABS: Albumin * 2.4 gm/dl (3.4-5.0); Anion Gap 13.1 mmol/L (6.8-13.8); BUN/Creatinine Ratio 42.2 (9.0-21.6); Bilirubin, Total 0.5 mg/dL (0.0-1.1); Carbon Dioxide 28.6 mmol/L (24-32.6); Estimated Creat Clear 34.8; Potassium 4.7 mmol/L (3.4-4.6); Total Protein 6.4 gm/dL (6.2-8.2)
[2020-04-22 06:50] LABS: Atypical (Reactive) Lymph 27 % (0-2); Lymphocyte 11 % (20-51); Monocyte 5 % (0-9); Neutrophil 57 % (42-75); Neutrophil # 12.5 K/mm3 (1.3-6.0)
[2020-04-22 06:52] LABS: Platelet Estimate Normal (NORMAL); Poikilocytosis 1+
[2020-04-22 06:53] LABS: Ovalocytes Trace; Tear Drop Cells Trace
--- NOTE | 2020-04-22 07:19 | PN ---
Subjective - Date and Time Seen Date: 04/22/20 Time: 06:35 Subjective Narrative: O2 by mask. Awake. Conversant. Slight increase in work of breathing, but looks comfortable. Much more with it today. Dr. Cheng brought up the possibility of pulmonary embolism over the weekend, so yesterday I ordered a PE protocol CT. Unfortunately, there were technical problems and radiology couldn't get useful pictures. They offered to give her a second dose of IV dye, but weren't sure that even then they could get good pictures. The chance she had/has a PE is/was small. Her GFR has been an ongoing concern. The dye increases the chance of worsening kidney function. A second dose adds more risk. On balance, I think the risk of harm vs hoped-for benefit precludes additional PE CT attempts and we will not repeat the study. She is here with pneumonia and HFpEF. The latter appears stable. GFR is decreased but fairly stable. she had been on lasix in the past, but we have held it now because her GFR was dropping lower than it is while on lasix and because her main problem at the present time seems to be pneumonia not heart failure. We will continue Aztreonam, Vancomycin and metronidazole. It is day 8 for the first two antibiotics and day 2 for the metronidazole. She was given Levofloxacin at the start of her admission 13 days ago. History of asthma. Lungs clear this morning. heart rate in the low 100s. bp fairly stable, low teens. we will continue to monitor. wbc is 22,000 today, but she clinically looks better this morning. 2 days ago her CXR showed improving infiltrates. Except for the first ABG yesterday morning, additional ones were not technically possible. We restarted BIPAP yesterday, but later in the day the patient requested we stop it. She reports she is eating fairly well. She wasn't up much yesterday, but we will try to increase that today. we will continue antibiotics, continue supportive care and continue to monitor. I am concerned about her elevated wbc count. It could be due to worsening infection, but she is clinically better. It could be leukocytosis associated with myelodysplastic syndrome. I will try contacting and communicating with her news photographer today about that problem. Objective - Review of Systems Generalized/Overall Review: Reports: Weakness EENTM: Reports: No Symptoms Reported Respiratory: Reports: No Symptoms Reported - she appear to be objectively slightly short of breath, her O2 sat seems to run low, but she reports her breathing feels ok Cardiac: Reports: Edema Abdominal: Reports: No Symptoms Reported Genitourinary Symptoms: Reports: No Symptoms Reported Musculoskeletal Complaints: Reports: No Symptoms Reported Neurological: Reports: No Symptoms Reported Skin: Reports: Bruising Endocrine: Reports: No Symptoms Reported Misc: All systems neg except as marked - Vitals Vitals: Last Vital Signs Temp 36.2 C 04/22/20 06:33 Pulse 103 H 04/22/20 06:33 Resp 34 H 04/22/20 06:33 BP 94/56 04/22/20 06:33 Pulse Ox 92 L 04/22/20 06:33 - Abnormal Lab Findings Abnormal Lab Findings: Abnormal Lab Results 04/21/20 04/21/20 04/21/20 Range/Units 06:30 06:30 08:14 WBC (4.0-10.5) K/mm3 RBC (4.2-5.4) M/mm3 Hgb (12.5-16.0) gm/dL Hct (37.0-47.0) % MCHC (32-36) g/dl RDW (11.5-14.0) % Lymphocytes % (Manual) 15 L (20-51) % Neutrophils # (Manual) 8.9 H (1.3-6.0) K/mm3 Monocytes # (Manual) 1.2 H (0.0-1.0) k/mm3 Nucleated RBCs 5.0 H (0-1) % Atypic/Reactive Lymphs 19 H (0-2) % pO2 49.3 L (83.0-108.0) mmHg Total CO2 26.2 H (19.0-24.0) mmol/L ABG O2 Sat (Measured) 86.7 L (94.0-98.0) % Potassium 4.7 H (3.4-4.6) mmol/L BUN 48 H (3-23) mg/dL Creatinine 1.47 H (0.4-1.4) mg/dL Est GFR (Non-Af Amer) 37 L (60-130) mL/min BUN/Creatinine Ratio 32.7 H (9.0-21.6) Random Glucose 181 H D (70-110) mg/dL ALT 16 L (19-67) U/L Albumin 2.1 L (3.4-5.0) gm/dl 04/22/20 04/22/20 Range/Units 06:00 06:00 WBC 22.0 H D (4.0-10.5) K/mm3 RBC 2.74 L (4.2-5.4) M/mm3 Hgb 8.2 L (12.5-16.0) gm/dL Hct 27.3 L (37.0-47.0) % MCHC 30.0 L (32-36) g/dl RDW 18.6 H (11.5-14.0) % Lymphocytes % (Manual) 11 L (20-51) % Neutrophils # (Manual) 12.5 H (1.3-6.0) K/mm3 Monocytes # (Manual) 1.1 H (0.0-1.0) k/mm3 Nucleated RBCs 5.0 H (0-1) % Atypic/Reactive Lymphs 27 H (0-2) % pO2 (83.0-108.0) mmHg Total CO2 (19.0-24.0) mmol/L ABG O2 Sat (Measured) (94.0-98.0) % Potassium 4.7 H (3.4-4.6) mmol/L BUN 57 H (3-23) mg/dL Creatinine (0.4-1.4) mg/dL Est GFR (Non-Af Amer) 40 L (60-130) mL/min BUN/Creatinine Ratio 42.2 H (9.0-21.6) Random Glucose 170 H (70-110) mg/dL ALT (19-67) U/L Albumin 2.4 L (3.4-5.0) gm/dl - Exam Constitutional: Present: Alert, Oriented x3, Cooperative, Well developed, Obese ENT Exam: Present: normal ENT inspection, hearing grossly normal Neck: Absent: lymphadenopathy (R), lymphadenopathy (L), thyromegaly Breasts: Present: Exam deferred Respiratory: Present: lungs clear Cardiovascular/Chest: Present: regular rate, rhythm, no JVD, no murmur, tachycardia Abdomen: Present: Normal bowel sounds, soft, nontender, nondistended, no hepatospenomegaly, no masses, obese /Rectal: Present: Exam deferred Extremity: Present: normal capillary refill, other - bruising Skin Exam: Present: normal color, warm/dry, no cyanosis Lymphatic: Present: no adenopathy Neurologic: Present: normal mood/affect Appearance: Present: appropriate appearance, appropriate insight, neat Eye contact: Present: cooperative, good eye contact, normal speech Thoughts: Present: normal thought pattern Cauti Physician Documentation - Urinary Catheter Management Urethral (Jones) Date of Insertion: 04/15/20 Time of Insertion: 11:35 Date of Removal: 04/17/20 Time of Removal: 07:50 Assessment/Plan - Problems/Diagnosis (1) Allergic reaction caused by a drug Problem: Resolved Qualifiers: Encounter type: initial encounter Qualified Code(s): T78.40XA - Allergy, unspecified, initial encounter (2) Pneumonia Problem: Acute Qualifiers: Laterality: bilateral Lung location: unspecified part of lung Narrative: continue current treatment. continue current monitoring. talk with her news photographer if possible today about her increase white count. has only been two days for the recently added metronidazole, we will continue antibiotics. (3) Tachycardia Problem: Chronic (4) MSSA (methicillin susceptible Staphylococcus aureus) pneumonia Problem: Ruled-out Qualifiers: Laterality: bilateral Lung location: unspecified part of lung Qualified Code(s): J15.211 - Pneumonia due to Methicillin susceptible Staphylococcus aureus (5) CHF (congestive heart failure) Problem: Chronic Qualifiers: Heart failure type: systolic Heart failure chronicity: chronic Qualified Code(s): I50.22 - Chronic systolic (congestive) heart failure (6) Hypoxia Problem: Chronic (7) Anemia Problem: Chronic Qualifiers: Anemia type: bone marrow failure Bone marrow failure anemia type: unspecified bone marrow failure Qualified Code(s): D61.9 - Aplastic anemia, unspecified (8) Chronic respiratory failure with hypoxia Problem: Chronic (9) Hypoalbuminemia Problem: Chronic (10) Vitamin D deficiency Problem: Chronic (11) Malignant neoplasm of upper lobe, right bronchus or lung Problem: Resolved (12) BMI 39.0-39.9,adult Problem: Resolved (13) Tricuspid regurgitation Problem: Chronic Qualifiers: Cardiac valve disease etiology: etiology unspecified Qualified Code(s): I07.1 - Rheumatic tricuspid insufficiency (14) (HFpEF) heart failure with preserved ejection fraction Problem: Chronic Qualifiers: Heart failure chronicity: acute on chronic Qualified Code(s): I50.33 - Acute on chronic diastolic (congestive) heart failure (15) Chronic myeloproliferative disease Problem: Chronic
--- NOTE | 2020-04-22 07:28 | PN ---
Isael Note - Interim Date: 04/22/20 Time: 07:25 Narrative: 04/22/20 07:25 Case management just now told me Dr. Cheng started methylprednisolone over the weekend, of which I was unaware. Right now, that would be the most likely reason for her elevated wbc count. Right now, I don't think she needs systemic steroids. So, we will stop the IV steroids, check a CBC tomorrow morning and hold off on talking with her supervisor vacuum metalizing.
[2020-04-22] MEDS: FLUTICASONE PROPION/SALMETEROL 14 PUFF DISK.W.DEV IH SCH ×2 (07:33→19:59)
[2020-04-22] MEDS: WATER IV SCH ×6 (07:34→22:28)
[2020-04-22] MEDS: DEXTROSE 5% IV SCH ×6 (07:34→22:28)
[2020-04-22] MEDS: AZTREONAM IV SCH ×6 (07:34→22:28)
[2020-04-22] MEDS: PANTOPRAZOLE SODIUM 20 MG TABLET.DR PO SCH ×2 (07:35→20:01)
[2020-04-22] MEDS: ASPIRIN 81 MG TABLET.DR PO SCH (08:13)
[2020-04-22] MEDS: LORATADINE 10 MG TABLET PO SCH ×2 (08:13→20:01)
[2020-04-22] MEDS: SACCHAROMYCES BOULARDII 250 MG CAPSULE PO SCH ×2 (08:13→20:01)
[2020-04-22] MEDS: CHOLECALCIFEROL 5,000 UNIT TABLET PO SCH (08:13)
[2020-04-22] MEDS: FOLIC ACID 1 MG TABLET PO SCH (08:13)
[2020-04-22] MEDS: DICLOFENAC SODIUM 100 APPL TUBE TP SCH ×4 (08:14→20:01)
[2020-04-22] MEDS: NYSTATIN 15 APPL BTL TP SCH ×2 (08:14→20:01)
[2020-04-22] MEDS: VANCOMYCIN/WATER FOR INJ (PEG) 1 GM/200 ML BAG IV SCH (14:24)
[2020-04-22] MEDS: ENOXAPARIN SODIUM 40 MG/0.4 ML SYRG SC SCH (20:00)
[2020-04-23] MEDS: ALBUTEROL SULFATE 2.5 MG/0.5 ML VIAL.NEB IH SCH ×5 (00:02→18:01)
[2020-04-23] MEDS: DILTIAZEM HCL 60 MG TABLET PO SCH ×4 (01:42→19:03)
[2020-04-23] MEDS: metroNIDAZOLE/SODIUM CHLORIDE 500 MG/100 ML BAG IV SCH ×3 (01:45→19:04)
[2020-04-23] MEDS: BUDESONIDE 0.5 MG/2 ML VIAL.NEB IH SCH ×3 (06:05→18:01)
[2020-04-23 06:39] LABS: Hematocrit 27.7 % (37.0-47.0); Hemoglobin 8.3 gm/dL (12.5-16.0); Mean Cell Volume 99.3 fl (78-100); Mean Corpuscular Hemoglobin 29.7 pg (27-31); Mean Platelet Volume 9.7 fl (8-12.5); Platelet Count 320 K/mm3 (150-450); Red Blood Count 2.79 M/mm3 (4.2-5.4); Red Cell Distribution Width 18.8 % (11.5-14.0); White Blood Count 23.3 K/mm3 (4.0-10.5)
[2020-04-23 06:41] LABS: Total Cells Counted 100
[2020-04-23 06:47] LABS: Albumin * 2.5 gm/dl (3.4-5.0); Anion Gap 11.8 mmol/L (6.8-13.8); BUN/Creatinine Ratio 48.1 (9.0-21.6); Bilirubin, Total 0.6 mg/dL (0.0-1.1); Ca. Corrected For Albumin 9.7 mg/dL (8.4-10.2); Calcium * 8.8 mg/dL (7.9-10.9); Carbon Dioxide 26.9 mmol/L (24-32.6); Estimated Creat Clear 35.8; Potassium 4.7 mmol/L (3.4-4.6); Total Protein 6.1 gm/dL (6.2-8.2)
[2020-04-23] MEDS: FLUTICASONE PROPION/SALMETEROL 14 PUFF DISK.W.DEV IH SCH ×2 (07:06→19:03)
[2020-04-23] MEDS: AZTREONAM IV SCH ×6 (07:06→23:16)
[2020-04-23] MEDS: WATER IV SCH ×6 (07:06→23:16)
[2020-04-23] MEDS: DEXTROSE 5% IV SCH ×6 (07:06→23:16)
[2020-04-23] MEDS: PANTOPRAZOLE SODIUM 20 MG TABLET.DR PO SCH ×2 (07:07→21:20)
--- NOTE | 2020-04-23 07:11 | PN ---
Subjective - Date and Time Seen Date: 04/23/20 Time: 06:40 Subjective Narrative: O2 by mask off and on through the night, the rest of the time and this morning by n.c.. Awake. Conversant. Slight increase in work of breathing, but looks comfortable. Generally looks much better this morning. She is here with pneumonia and HFpEF. The latter appears stable. GFR is decreased but fairly stable. Potassium is 4.7, but appears stable. We will follow both daily for now. she had been on lasix in the past, but we have held it now because her GFR was dropping lower than it is while on lasix and because her main problem at the present time seems to be pneumonia not heart fa ilure. We will continue Aztreonam, Vancomycin and metronidazole. It is day 9 for the first two antibiotics and day 3 for the metronidazole. She was given Levofloxacin at the start of her admission 13 days ago which didn't help. History of asthma. Lungs clear this morning. heart rate in the low 100s. bp fairly stable, low teens. we will continue to monitor. wbc is 23,000 today, a little up, but yesterday I stopped the solumedrol which was started over the weekend, and the rate of rise of the wbc count is slowing. We will continues to monitor. She reports she is eating fairly well. She walked twice yesterday. we will continue to encourage that. we will continue antibiotics, continue supportive care and continue to monitor. Given that I think this admission may be a worsening of her pneumonia from February because the antibiotics hadn't been continued long enough, I want to give the antibiotics longer than usual. There are no good oral antibiotic options. My plan is to continue the metronidazole for 14 days, as it was more recently added to her treatment than the other two. I did not speak with her client care coordinator yesterday, because the steroids, which I stopped yesterday, are the most likely reason for the elevated wbc count. Her hgb is stable in the low 8's. We will continue with daily CBC's. Objective - Review of Systems Generalized/Overall Review: Reports: Weakness EENTM: Reports: No Symptoms Reported Respiratory: Reports: Shortness of Breath Cardiac: Reports: Edema - chronic, not worse Abdominal: Reports: No Symptoms Reported Genitourinary Symptoms: Reports: No Symptoms Reported Musculoskeletal Complaints: Reports: No Symptoms Reported Neurological: Reports: No Symptoms Reported Skin: Reports: Bruising Endocrine: Reports: No Symptoms Reported Misc: All systems neg except as marked - Vitals Vitals: Last Vital Signs Temp 36.3 C 04/23/20 06:29 Pulse 110 H 04/23/20 06:29 Resp 36 H 04/23/20 06:29 BP 123/73 04/23/20 06:29 Pulse Ox 92 L 04/23/20 06:29 - Abnormal Lab Findings Abnormal Lab Findings: Abnormal Lab Results 04/23/20 04/23/20 Range/Units 06:30 06:30 WBC 23.3 H (4.0-10.5) K/mm3 RBC 2.79 L (4.2-5.4) M/mm3 Hgb 8.3 L (12.5-16.0) gm/dL Hct 27.7 L (37.0-47.0) % MCHC 30.0 L (32-36) g/dl RDW 18.8 H (11.5-14.0) % Potassium 4.7 H (3.4-4.6) mmol/L BUN 63 H (3-23) mg/dL Est GFR (Non-Af Amer) 42 L (60-130) mL/min BUN/Creatinine Ratio 48.1 H (9.0-21.6) Random Glucose 130 H (70-110) mg/dL Total Protein 6.1 L (6.2-8.2) gm/dL Albumin 2.5 L (3.4-5.0) gm/dl - Exam Constitutional: Present: Alert, Oriented x3, Cooperative, Well developed, Well nourished, No distress - cheerful. up in chair. ENT Exam: Present: normal ENT inspection, hearing grossly normal Neck: Absent: lymphadenopathy (R), lymphadenopathy (L), thyromegaly Breasts: Present: Exam deferred Respiratory: Present: lungs clear, other - sl increased work of breathing/ongoing tachypnea Cardiovascular/Chest: Present: regular rate, rhythm, no chest tenderness, no gallop, no JVD, no murmur Abdomen: Present: Normal bowel sounds, soft, nontender, nondistended, no hepatospenomegaly, no masses, obese /Rectal: Present: Exam deferred Extremity: Present: normal capillary refill, lower extremity edema Skin Exam: Present: normal color, warm/dry, no cyanosis, other - bruising Lymphatic: Present: no adenopathy Neurologic: Present: normal mood/affect Appearance: Present: appropriate appearance, appropriate insight, neat Eye contact: Present: cooperative, good eye contact, normal speech Thoughts: Present: normal thought pattern Cauti Physician Documentation - Urinary Catheter Management Urethral (Jones) Date of Insertion: 04/15/20 Time of Insertion: 11:35 Date of Removal: 04/17/20 Time of Removal: 07:50 Assessment/Plan - Problems/Diagnosis (1) Allergic reaction caused by a drug Problem: Resolved Qualifiers: Encounter type: initial encounter Qualified Code(s): T78.40XA - Allergy, unspecified, initial encounter (2) Pneumonia Problem: Acute Qualifiers: Laterality: bilateral Lung location: unspecified part of lung Narrative: seems better. continue antibiotics. monitor labs. increase activity. supportive care. (3) Tachycardia Problem: Chronic (4) MSSA (methicillin susceptible Staphylococcus aureus) pneumonia Problem: Ruled-out Qualifiers: Laterality: bilateral Lung location: unspecified part of lung Qualified Code(s): J15.211 - Pneumonia due to Methicillin susceptible Staphylococcus aureus (5) CHF (congestive heart failure) Problem: Chronic Qualifiers: Heart failure type: systolic Heart failure chronicity: chronic Qualified Code(s): I50.22 - Chronic systolic (congestive) heart failure (6) Hypoxia Problem: Chronic (7) Anemia Problem: Chronic Qualifiers: Anemia type: bone marrow failure Bone marrow failure anemia type: unspecified bone marrow failure Qualified Code(s): D61.9 - Aplastic anemia, un specified (8) Chronic respiratory failure with hypoxia Problem: Chronic (9) Hypoalbuminemia Problem: Chronic (10) Vitamin D deficiency Problem: Chronic (11) Malignant neoplasm of upper lobe, right bronchus or lung Problem: Resolved (12) BMI 39.0-39.9,adult Problem: Resolved (13) Tricuspid regurgitation Problem: Chronic Qualifiers: Cardiac valve disease etiology: etiology unspecified Qualified Code(s): I07.1 - Rheumatic tricuspid insufficiency (14) (HFpEF) heart failure with preserved ejection fraction Problem: Chronic Qualifiers: Heart failure chronicity: acute on chronic Qualified Code(s): I50.33 - Acute on chronic diastolic (congestive) heart failure (15) Chronic myeloproliferative disease Problem: Chronic
[2020-04-23 07:19] LABS: Atypical (Reactive) Lymph 22 % (0-2); Eosinophil 1 % (0-3); Lymphocyte 20 % (20-51); Monocyte 7 % (0-9); Neutrophil 50 % (42-75); Neutrophil # 11.7 K/mm3 (1.3-6.0)
[2020-04-23 07:20] LABS: Poikilocytosis 1+; Polychromasia Trace; Tear Drop Cells Trace
[2020-04-23] MEDS: DICLOFENAC SODIUM 100 APPL TUBE TP SCH ×4 (09:52→21:20)
[2020-04-23] MEDS: NYSTATIN 15 APPL BTL TP SCH ×2 (09:52→21:19)
[2020-04-23] MEDS: SACCHAROMYCES BOULARDII 250 MG CAPSULE PO SCH ×2 (09:52→21:19)
[2020-04-23] MEDS: CHOLECALCIFEROL 5,000 UNIT TABLET PO SCH (09:52)
[2020-04-23] MEDS: ASPIRIN 81 MG TABLET.DR PO SCH (09:52)
[2020-04-23] MEDS: LORATADINE 10 MG TABLET PO SCH ×2 (09:52→21:19)
[2020-04-23] MEDS: FOLIC ACID 1 MG TABLET PO SCH (09:52)
--- NOTE | 2020-04-23 10:08 | ANES ---
Anesthesia Procedure Note Procedure Note: ANESTHESIA PROCEDURE NOTE Date of procedure: 04/23/2020. Time of procedure: . Performed by: Marciano Solano CRNA Dialysis Patient Care Technician: None . Preprocedure diagnosis: Pneumonia. Need for long-term antibiotic therapy.. Post procedure diagnosis: Same. Procedure: PICC line insertion Indications: Long-term antibiotic therapy. Findings: patient's right antecubital was prepped and draped sterilely. Attempted access via indwelling 20-gauge Angiocath unsuccessful. Angiocath removed. Attempted venous access with 22-gauge Angiocath without success. Patient's only other IV site is in the left antecubital. Decision made not to remove that IV catheter from left antecubital to attempt left-sided PICC line. Procedure aborted. EBL: Minimal. Fluids: N/A. Specimen: N/A. Post procedure condition: The patient tolerated the procedure well. No complications were noted. Thank you for this consultation Marciano Solano CRNA
[2020-04-23] MEDS: VANCOMYCIN/WATER FOR INJ (PEG) 1 GM/200 ML BAG IV SCH (11:11)
[2020-04-23] MEDS: ENOXAPARIN SODIUM 40 MG/0.4 ML SYRG SC SCH (19:04)
[2020-04-23] MEDS: ALBUTEROL SULFATE 2.5 MG/0.5 ML VIAL.NEB IH PRN (19:25)
[2020-04-24] MEDS: ALBUTEROL SULFATE 2.5 MG/0.5 ML VIAL.NEB IH SCH ×3 (01:38→13:48)
[2020-04-24] MEDS: DILTIAZEM HCL 60 MG TABLET PO SCH (01:41)
[2020-04-24] MEDS: metroNIDAZOLE/SODIUM CHLORIDE 500 MG/100 ML BAG IV SCH ×2 (01:55→10:09)
[2020-04-24] MEDS: ALBUTEROL SULFATE 2.5 MG/0.5 ML VIAL.NEB IH PRN (04:48)
[2020-04-24] MEDS: BUDESONIDE 0.5 MG/2 ML VIAL.NEB IH SCH (06:08)
[2020-04-24 06:37] LABS: Hematocrit 28.3 % (37.0-47.0); Hemoglobin 8.5 gm/dL (12.5-16.0); Mean Cell Volume 98.6 fl (78-100); Mean Corpuscular Hemoglobin 29.6 pg (27-31); Mean Platelet Volume 9.8 fl (8-12.5); Platelet Count 301 K/mm3 (150-450); Red Blood Count 2.87 M/mm3 (4.2-5.4); Red Cell Distribution Width 18.8 % (11.5-14.0); White Blood Count 20.2 K/mm3 (4.0-10.5)
[2020-04-24 06:40] LABS: Total Cells Counted 100
[2020-04-24] MEDS ORDERED: FUROSEMIDE 10 MG/ML VIAL IV ONE ×2 (06:52→09:29)
[2020-04-24 06:53] LABS: Albumin * 2.4 gm/dl (3.4-5.0); Bilirubin, Total 0.9 mg/dL (0.0-1.1); Ca. Corrected For Albumin 9.7 mg/dL (8.4-10.2); Calcium * 8.7 mg/dL (7.9-10.9); Carbon Dioxide 27.3 mmol/L (24-32.6); Estimated Creat Clear 35.8; Potassium 4.3 mmol/L (3.4-4.6); Total Protein 6.3 gm/dL (6.2-8.2)
[2020-04-24] MEDS ORDERED: DILTIAZEM HCL 90 MG TABLET PO SCH (07:00)
[2020-04-24 07:05] LABS: Atypical (Reactive) Lymph 24 % (0-2); Immature Granulocyte 1 (0-1); Lymphocyte 17 % (20-51); Monocyte 5 % (0-9); Neutrophil 53 % (42-75); Neutrophil # 10.7 K/mm3 (1.3-6.0); Platelet Estimate Normal (NORMAL)
--- NOTE | 2020-04-24 07:05 | PN ---
Subjective - Date and Time Seen Date: 04/24/20 Time: 06:40 Subjective Narrative: Nurse reports she is very anxious. Seems to think her O2 sat needs to be at a certain level. pulse up and resp rate up. O2 sats in the high 80s on simple mask or n.c. oxygen. High 90s with bipap which was restarted last night. Awake. Conversant. pulse rate in the 120s to 130s. The most prominent feature of her respirations is tachypnea, though each breath seems easy. She is here with pneumonia and HFpEF. The latter appears stable. GFR is decreased but fairly stable. BMP still pending this morning.. she had been on lasix in the past, but held it because her GFR was dropping lower while on lasix and because her main problem at the present time seemed to be pneumonia not heart failure. She has a positive fluid balance however so we will give one dose of IV Lasix this morning and watch for response. We will repeat a CXR today. We will continue Aztreonam, Vancomycin and metronidazole. It is day 10 for the first two antibiotics and day 4 for the metronidazole. She was given Levof loxacin at the start of her admission 14 days ago which didn't help. History of asthma. Lungs clear this morning. wbc is 22,000 today, down from 23,000 yesterday. We will continue to monitor. She reports she is eating fairly well. She walked twice yesterday. we will continue to encourage that. we will continue antibiotics, continue supportive care and continue to monitor. Given that I think this admission may be a worsening of her pneumonia from February because the antibiotics hadn't been continued long enough, I want to give the antibiotics longer than usual. There are no good oral antibiotic options. My plan is to continue the metronidazole for 14 days, as it was more recently added to her treatment than the other two. Her hgb remains stable. Objective - Review of Systems Generalized/Overall Review: Reports: Weakness. Denies: Fever, Diaphoresis EENTM: Reports: No Symptoms Reported Respiratory: Reports: Other - sob. Denies: Cough, Wheezing Cardiac: Reports: Edema - chronic stable Abdominal: Reports: No Symptoms Reported Genitourinary Symptoms: Reports: No Symptoms Reported Musculoskeletal Complaints: Reports: No Symptoms Reported Neurological: Reports: Other - nurse reports anxious and wonders if lorazepam would help, especially since the anxiety may be worsening her breathing Skin: Reports: Bruising Endocrine: Reports: No Symptoms Reported Misc: All systems neg except as marked - Vitals Vitals: Last Vital Signs Temp 37.4 C 04/24/20 01:54 Pulse 140 H 04/24/20 06:18 Resp 43 H 04/24/20 06:18 BP 124/69 04/24/20 01:54 Pulse Ox 100 04/24/20 06:09 - Abnormal Lab Findings Abnormal Lab Findings: Abnormal Lab Results 04/23/20 04/24/20 04/24/20 Range/Units 06:30 06:34 06:34 WBC 20.2 H (4.0-10.5) K/mm3 RBC 2.87 L (4.2-5.4) M/mm3 Hgb 8.5 L (12.5-16.0) gm/dL Hct 28.3 L (37.0-47.0) % MCHC 30.0 L (32-36) g/dl RDW 18.8 H (11.5-14.0) % Neutrophils # (Manual) 11.7 H (1.3-6.0) K/mm3 Lymphocytes # (Manual) 4.7 H (1.5-3.5) k/mm3 Monocytes # (Manual) 1.6 H (0.0-1.0) k/mm3 Nucleated RBCs 4.0 H (0-1) % Atypic/Reactive Lymphs 22 H (0-2) % BUN 59 H (3-23) mg/dL Est GFR (Non-Af Amer) 42 L (60-130) mL/min BUN/Creatinine Ratio 45.0 H (9.0-21.6) Random Glucose 135 H (70-110) mg/dL Albumin 2.4 L (3.4-5.0) gm/dl - Exam Constitutional: Present: Alert, Oriented x3, Cooperative, Well developed, Morbidly obese ENT Exam: Present: normal ENT inspection, hearing grossly normal Neck: Absent: lymphadenopathy (R), lymphadenopathy (L), thyromegaly Respiratory: Present: lungs clear, other - tachypnea Cardiovascular/Chest: Present: regular rate, rhythm, no JVD, no murmur Abdomen: Present: Normal bowel sounds, soft, nontender, nondistended, no hepatospenomegaly, no masses, obese /Rectal: Present: Exam deferred Extremity: Present: normal capillary refill, pedal edema Skin Exam: Present: normal color, warm/dry, no cyanosis Lymphatic: Present: no adenopathy Neurologic: Present: oriented x 3 Appearance: Present: appropriate appearance, neat Eye contact: Present: cooperative, good eye contact, normal speech Thoughts: Present: normal thought pattern Cauti Physician Documentation - Urinary Catheter Management Urethral (Jones) Date of Insertion: 04/15/20 Time of Insertion: 11:35 Date of Removal: 04/17/20 Time of Removal: 07:50 Assessment/Plan - Problems/Diagnosis (1) Anxiety Problem: Suspected Narrative: will try a low dose of lorazepam (2) Pneumonia Problem: Acute Qualifiers: Laterality: bilateral Lung location: unspecified part of lung Narrative: continue antibiotics. ABG trial of Lasix CXR bipap as needed (3) Tachycardia Problem: Chronic (4) MSSA (methicillin susceptible Staphylococcus aureus) pneumonia Problem: Ruled-out Qualifiers: Laterality: bilateral Lung location: unspecified part of lung Qualified Code(s): J15.211 - Pneumonia due to Methicillin susceptible Staphylococcus aureus (5) CHF (congestive heart failure) Problem: Chronic Qualifiers: Heart failure type: systolic Heart failure chronicity: chronic Qualified Code(s): I50.22 - Chronic systolic (congestive) heart failure (6) Hypoxia Problem: Chronic (7) Anemia Problem: Chronic Qualifiers: Anemia type: bone marrow failure Bone marrow failure anemia type: unspecified bone marrow failure Qualified Code(s): D61.9 - Aplastic anemia, unspecified (8) Chronic respiratory failure with hypoxia Problem: Chronic (9) Hypoalbuminemia Problem: Chronic (10) Vitamin D deficiency Problem: Chronic (11) Malignant neoplasm of upper lobe, right bronchus or lung Problem: Resolved (12) BMI 39.0-39.9,adult Problem: Resolved (13) Tricuspid regurgitation Problem: Chronic Qualifiers: Cardiac valve disease etiology: etiology unspecified Qualified Code(s): I07.1 - Rheumatic tricuspid insufficiency (14) (HFpEF) heart failure with preserved ejection fraction Problem: Chronic Qualifiers: Heart failure chronicity: acute on chronic Qualified Code(s): I50.33 - Acute on chronic diastolic (congestive) heart failure (15) Chronic myeloproliferative disease Problem: Chronic (16) Allergic reaction caused by a drug Problem: Resolved Qualifiers: Encounter type: initial encounter Qualified Code(s): T78.40XA - Allergy, unspecified, initial encounter
[2020-04-24 07:06] LABS: Poikilocytosis 1+; Polychromasia 1+
[2020-04-24 07:07] LABS: Ovalocytes Trace; Tear Drop Cells Trace
[2020-04-24 07:08] LABS: Hypersegmented Polys Trace
[2020-04-24] MEDS: PANTOPRAZOLE SODIUM 20 MG TABLET.DR PO SCH (07:14)
[2020-04-24] MEDS: FLUTICASONE PROPION/SALMETEROL 14 PUFF DISK.W.DEV IH SCH (07:14)
[2020-04-24] MEDS: WATER IV SCH ×4 (07:15→16:01)
[2020-04-24] MEDS: DEXTROSE 5% IV SCH ×4 (07:15→16:01)
[2020-04-24] MEDS: AZTREONAM IV SCH ×4 (07:15→16:01)
[2020-04-24] MEDS: ASPIRIN 81 MG TABLET.DR PO SCH (08:00)
[2020-04-24] MEDS: CHOLECALCIFEROL 5,000 UNIT TABLET PO SCH (08:00)
[2020-04-24] MEDS: LORATADINE 10 MG TABLET PO SCH (08:01)
[2020-04-24] MEDS: SACCHAROMYCES BOULARDII 250 MG CAPSULE PO SCH (08:01)
[2020-04-24] MEDS: FOLIC ACID 1 MG TABLET PO SCH (08:01)
[2020-04-24] MEDS: DICLOFENAC SODIUM 100 APPL TUBE TP SCH ×2 (08:08→12:53)
[2020-04-24] MEDS: NYSTATIN 15 APPL BTL TP SCH (08:10)
[2020-04-24] MEDS: LORazepam 0.5 MG TABLET PO SCH ×2 (08:15→16:07)
[2020-04-24] MEDS: VANCOMYCIN/WATER FOR INJ (PEG) 1 GM/200 ML BAG IV SCH (10:56)
[2020-04-24] MEDS ORDERED: METOPROLOL TARTRATE 50 MG TABLET PO SCH (11:00)
--- NOTE | 2020-04-24 13:12 | DS ---
Transfer Discharge Summary - Diagnosis(s)/Problems (1) Anxiety Problem: Suspected (2) Pneumonia Problem: Acute (3) Tachycardia Problem: Chronic (4) MSSA (methicillin susceptible Staphylococcus aureus) pneumonia Problem: Ruled-out (5) CHF (congestive heart failure) Problem: Chronic (6) Hypoxia Problem: Chronic (7) Anemia Problem: Chronic (8) Chronic respiratory failure with hypoxia Problem: Chronic (9) Hypoalbuminemia Problem: Chronic (10) Vitamin D deficiency Problem: Chronic (11) Malignant neoplasm of upper lobe, right bronchus or lung Problem: Resolved (12) BMI 39.0-39.9,adult Problem: Resolved (13) Tricuspid regurgitation Problem: Chronic (14) (HFpEF) heart failure with preserved ejection fraction Problem: Chronic (15) Chronic myeloproliferative disease Problem: Chronic (16) Allergic reaction caused by a drug Problem: Resolved - Course Description of Stay: She was a little worse yesterday morning. Last night, more so continuing through this morning. ABGs and CXR worse today. She is here with pneumonia and HFpEF. The latter appears stable. GFR is decreased but fairly stable. We will continue Aztreonam, Vancomycin and metronidazole. It is day 10 for the first two antibiotics and day 4 for the metronidazole. She was given Levofloxacin at the start of her admission 14 days ago which didn't help. History of asthma. Lungs clear this morning. wbc is 22,000 today, down from 23,000 yesterday. We will continue to monitor. She reports she had been eating fairly well. She walked twice yesterday, in spite of worsening. we will continue to encourage that. we will continue antibiotics, continue supportive care and continue to monitor. Her hgb remains stable. Because she is worsening in spite of treatment I discussed transfer to a higher level of care with her and her sister who is also here. They said they would like her transferred. No beds available at the [facility] or [place]. I found a place at and she will be transferred to [facility]. Consultation Done:: Discussed by phone with Dr. Goncalves today Procedures Performed: see notes below - anesthesia placed venous line - Results and Findings Results and Findings: Laboratory Results - last 24 hr 04/24/20 04/24/20 04/24/20 06:34 06:34 10:20 WBC 20.2 H RBC 2.87 L Hgb 8.5 L Hct 28.3 L MCV 98.6 MCH 29.6 MCHC 30.0 L RDW 18.8 H Plt Count 301 MPV 9.8 Neutrophils % (Manual) 53 Lymphocytes % (Manual) 17 L Monocytes % (Manual) 5 Immature Granulocytes 1 Neutrophils # (Manual) 10.7 H Lymphocytes # (Manual) 3.4 Monocytes # (Manual) 1.0 Nucleated RBCs 3.0 H Hypersegmented Polys Trace Atypic/Reactive Lymphs 24 H Platelet Estimate Normal Polychromasia 1+ Poikilocytosis 1+ Tear Drop Cells Trace Ovalocytes Trace pCO2 39.1 pO2 62.5 L HCO3 25.7 Total CO2 26.9 H Base Excess 1.5 ABG pH 7.44 ABG O2 Sat (Measured) 92.7 L Sodium 140 Plasma Sodium 141 Potassium 4.3 Chloride 105 Carbon Dioxide 27.3 Anion Gap 12.0 BUN 59 H Creatinine 1.31 Est GFR (Non-Af Amer) 42 L BUN/Creatinine Ratio 45.0 H Random Glucose 135 H Calcium 8.7 Calcium Adj for Albumin 9.7 Total Bilirubin 0.9 AST 28 ALT 27 Alkaline Phosphatase 82 Troponin I Total Protein 6.3 Albumin 2.4 L 04/24/20 04/24/20 11:13 11:52 WBC RBC Hgb Hct MCV MCH MCHC RDW Plt Count MPV Neutrophils % (Manual) Lymphocytes % (Manual) Monocytes % (Manual) Immature Granulocytes Neutrophils # (Manual) Lymphocytes # (Manual) Monocytes # (Manual) Nucleated RBCs Hypersegmented Polys Atypic/Reactive Lymphs Platelet Estimate Polychromasia Poikilocytosis Tear Drop Cells Ovalocytes pCO2 43.2 pO2 409.6 H HCO3 26.1 Total CO2 27.4 H Base Excess 1.1 ABG pH 7.40 ABG O2 Sat (Measured) 99.8 H Sodium Plasma Sodium Potassium Chloride Carbon Dioxide Anion Gap BUN Creatinine Est GFR (Non-Af Amer) BUN/Creatinine Ratio Random Glucose Calcium Calcium Adj for Albumin Total Bilirubin AST ALT Alkaline Phosphatase Troponin I Less than 0.017 Total Protein Albumin - Medications Medications: Active Medications Acetaminophen (Acetaminophen 325 Mg Tablet) 650 mg PO Q4H PRN PRN Reason: Mild pain (pain scale 1-3) Stop: 05/09/20 19:58 Last Admin: 04/13/20 00:00 Dose: 650 mg Documented by: Albuterol Sulfate (Albuterol Sulfate 2.5 Mg/0.5 Ml Vial.Peterson) 2.5 mg IH Q4H PRN PRN Reason: Wheezing Stop: 05/10/20 06:25 Last Admin: 04/24/20 04:48 Dose: 2.5 mg Documented by: Albuterol Sulfate (Albuterol Sulfate 2.5 Mg/0.5 Ml Vial.Peterson) 2.5 mg IH Q6HRT [facility] Stop: 05/14/20 07:16 Last Admin: 04/24/20 06:11 Dose: Not Given Documented by: Aspirin (Aspirin 81 Mg Tablet.) 81 mg PO DAILY [facility] Stop: 05/10/20 09:01 Last Admin: 04/24/20 08:00 Dose: 81 mg Documented by: Budesonide (Budesonide 0.5 Mg/2 Ml Vial.Peterson) 1 mg IH BIDRT [facility] Stop: 05/14/20 07:16 Last Admin: 04/24/20 06:08 Dose: 1 mg Documented by: Cholecalciferol (Cholecalciferol 5,000 Unit Tablet) 5,000 unit PO DAILY [facility] Stop: 05/11/20 09:01 Last Admin: 04/24/20 08:00 Dose: 5,000 unit Documented by: Diclofenac Sodium (Diclofenac Sodium 100 Appl Tube) 1 appl TP QID [facility] Stop: 05/10/20 13:01 Last Admin: 04/24/20 12:53 Dose: 1 appl Documented by: Enoxaparin Sodium (Enoxaparin Sodium 40 Mg/0.4 Ml Syrg) 40 mg SC Q24H [facility] Stop: 05/09/20 20:01 Last Admin: 04/23/20 19:04 Dose: 40 mg Documented by: Folic Acid (Folic Acid 1 Mg Tablet) 1 mg PO DAILY [facility] Stop: 05/09/20 20:16 Last Admin: 04/24/20 08:01 Dose: 1 mg Documented by: Vancomycin/PEG/NADA/Lysine/Water (Vancomycin) 1 gm in 200 mls @ 100 mls/hr IV Q24H [facility] Stop: 05/14/20 11:01 Last Admin: 04/24/20 10:56 Dose: 100 mls/hr Documented by: Aztreonam 1 gm/ Dextrose/Water 100 mls @ 200 mls/hr IV Q8H [facility]; Protocol Stop: 05/16/20 07:01 Last Infusion: 04/24/20 07:45 Dose: Infused Documented by: Metronidazole (Flagyl) 500 mg in 100 mls @ 100 mls/hr IV Q8H [facility]; Protocol Stop: 05/20/20 10:46 Last Infusion: 04/24/20 11:09 Dose: Infused Documented by: Loratadine (Loratadine 10 Mg Tablet) 10 mg PO BID [facility] Stop: 05/17/20 09:01 Last Admin: 04/24/20 08:01 Dose: 10 mg Documented by: Lorazepam (Lorazepam 0.5 Mg Tablet) 0.5 mg PO Q8H [facility] Stop: 05/24/20 07:01 Last Admin: 04/24/20 08:15 Dose: 0.5 mg Documented by: Melatonin (Melatonin 3,000 Mcg Tablet) 3,000 mcg PO HS PRN PRN Reason: sleep Stop: 05/09/20 20:04 Last Admin: 04/20/20 20:51 Dose: 3,000 mcg Documented by: Metoprolol Tartrate (Metoprolol Tartrate 50 Mg Tablet) 50 mg PO Q8H [facility] Stop: 05/24/20 11:01 Last Admin: 04/24/20 10:54 Dose: 50 mg Documented by: Nystatin (Nystatin 15 Appl Btl) 1 appl TP BID [facility] Stop: 05/10/20 21:01 Last Admin: 04/24/20 08:10 Dose: 1 appl Documented by: Pantoprazole Sodium (Pantoprazole Sodium 20 Mg Tablet.Dr) 20 mg PO BID@0700,2100 [facility] Stop: 05/09/20 21:01 Last Admin: 04/24/20 07:14 Dose: 20 mg Documented by: Saccharomyces Boulardii (Saccharomyces Boulardii 250 Mg Capsule) 250 mg PO BID [facility] Stop: 05/21/20 09:01 Last Admin: 04/24/20 08:01 Dose: 250 mg Documented by: Fluticasone/Salmeterol (Fluticasone Propion/Salmeterol 14 Puff Disk.W.Dev) 1 puff IH BIDRT [facility] Stop: 05/09/20 20:31 Last Admin: 04/24/20 07:14 Dose: 1 puff Documented by: Discontinued Medications Acetaminophen (Acetaminophen 325 Mg Tablet) 650 mg PO ONCE ONE Stop: 04/16/20 06:50 Last Admin: 04/16/20 10:43 Dose: 650 mg Documented by: Albuterol/Ipratropium (Albuterol Sulfate/Ipratropium 3 Ml Nebu) 3 ml IH ONCE ONE Stop: 04/09/20 19:00 Last Admin: 04/09/20 19:40 Dose: 3 ml Documented by: Albuterol/Ipratropium (Albuterol Sulfate/Ipratropium 3 Ml Nebu) 3 ml IH Q4HRT [facility] Stop: 05/09/20 23:01 Last Admin: 04/10/20 06:04 Dose: 3 ml Documented by: Cholecalciferol (Cholecalciferol 5,000 Unit Tablet) 10,000 unit PO DAILY [facility] Stop: 05/10/20 09:01 Last Admin: 04/10/20 08:20 Dose: 10,000 unit Documented by: Diltiazem HCl (Diltiazem Hcl 30 Mg Tablet) 30 mg PO Q8H [facility] Stop: 05/14/20 07:31 Last Admin: 04/15/20 08:21 Dose: Not Given Documented by: Diltiazem HCl (Diltiazem Hcl 60 Mg Tablet) 60 mg PO Q8H [facility] Stop: 05/15/20 08:16 Last Admin: 04/17/20 23:35 Dose: 60 mg Documented by: Diltiazem HCl (Diltiazem Hcl 60 Mg Tablet) 60 mg PO Q6H [facility] Stop: 05/18/20 07:01 Last Admin: 04/24/20 01:41 Dose: 60 mg Documented by: Diltiazem HCl (Diltiazem Hcl 90 Mg Tablet) 90 mg PO Q6H [facility] Stop: 05/24/20 07:01 Last Admin: 04/24/20 07:56 Dose: 90 mg Documented by: Diphenhydramine HCl (Diphenhydramine Hcl 50 Mg/Ml Vial) 25 mg IV ONCE ONE Stop: 04/16/20 06:50 Last Admin: 04/16/20 10:44 Dose: 25 mg Documented by: Furosemide (Furosemide 10 Mg/Ml Vial) 40 mg IV ONCE ONE Stop: 04/09/20 18:42 Last Admin: 04/09/20 19:15 Dose: 40 mg Documented by: Furosemide (Furosemide 10 Mg/Ml Vial) 40 mg IV Q12H [facility] Stop: 04/10/20 20:16 Last Admin: 04/09/20 20:24 Dose: Not Given Documented by: Furosemide (Furosemide 10 Mg/Ml Vial) 20 mg IV ONCE ONE Stop: 04/09/20 21:06 Last Admin: 04/09/20 22:02 Dose: 20 mg Documented by: Furosemide (Furosemide 10 Mg/Ml Vial) 80 mg IV ONCE STA Stop: 04/10/20 07:04 Last Admin: 04/10/20 07:52 Dose: Not Given Documented by: Furosemide (Furosemide 10 Mg/Ml Vial) 80 mg IV Q12H [facility] Stop: 04/11/20 07:10 Last Admin: 04/10/20 19:56 Dose: 80 mg Documented by: Furosemide (Furosemide 10 Mg/Ml Vial) 60 mg IV DAILY [facility] Stop: 04/11/20 09:01 Last Admin: 04/11/20 10:01 Dose: 60 mg Documented by: Furosemide (Furosemide 10 Mg/Ml Vial) 10 mg IV ONCE PRN PRN Reason: GIVE AFTER FIRST UNIT OF BLOOD Stop: 04/16/20 15:00 Last Admin: 04/16/20 14:44 Dose: 10 mg Documented by: Furosemide (Furosemide 10 Mg/Ml Vial) 40 mg IV ONCE ONE Stop: 04/24/20 06:53 Last Admin: 04/24/20 08:01 Dose: 40 mg Documented by: Furosemide (Furosemide 10 Mg/Ml Vial) 80 mg IV ONCE ONE Stop: 04/24/20 09:30 Last Admin: 04/24/20 10:01 Dose: 80 mg Documented by: Levofloxacin/Dextrose (Levaquin) 500 mg in 100 mls @ 100 mls/hr IV Q24H [facility]; Protocol Stop: 05/09/20 19:01 Last Infusion: 04/09/20 21:10 Dose: Infused Documented by: Cefepime HCl 1 gm/ Dextrose/ (Water) 100 mls @ 200 mls/hr IV Q12H [facility] Stop: 05/14/20 10:01 Last Infusion: 04/15/20 21:39 Dose: Infused Documented by: Levofloxacin (Levofloxacin 750 Mg Tablet) 750 mg PO DAILY@1100 [facility]; Protocol Stop: 05/10/20 11:01 Last Admin: 04/13/20 10:32 Dose: 750 mg Documented by: Methylprednisolone Sodium Succinate (Methylprednisolone Sod Succ/Pf 125 Mg/2 Ml Vial) 62.5 mg IV Q6H [facility] Stop: 04/22/20 10:46 Last Admin: 04/22/20 04:24 Dose: 62.5 mg Documented by: Metoprolol Tartrate (Metoprolol Tartrate 50 Mg Tablet) 50 mg PO BID [facility] Stop: 05/09/20 21:01 Last Admin: 04/10/20 08:21 Dose: 50 mg Documented by: Metoprolol Tartrate (Metoprolol Tartrate 25 Mg Tablet) 75 mg PO TID@0900,1500,2100 [facility] Stop: 05/10/20 15:01 Last Admin: 04/13/20 20:41 Dose: 75 mg Documented by: Metoprolol Tartrate (Metoprolol Tartrate 1 Mg/Ml Ampul) 5 mg IV ONCE ONE Stop: 04/15/20 02:52 Last Admin: 04/15/20 03:07 Dose: 5 mg Documented by: Morphine Sulfate (Morphine Sulfate 2 Mg/Ml Disp.Syrin) 2 mg IV ONCE ONE Stop: 04/14/20 20:13 Last Admin: 04/14/20 20:38 Dose: 2 mg Documented by: - Disposition Disposition: Still a patient Condition: Serious Discharge Date: 04/24/20 Discharge Time: 13:12
[2020-04-24 16:29] VITALS: BP 100/61
--- NOTE | 2020-04-25 14:22 | ECHO ---
This report is available in the EMR
== END 2020-04-24 16:20 | disposition short-term general hospital (02) | DRG 194 ==
LOC: ER 15:42 → MS 19:04
PROVIDERS: ADMIT Family Medicine; ATTEND Allergy & Immunology
DX: J45.909 Unspecified asthma, uncomplicated; I50.30 Unspecified diastolic (congestive) heart failure; E88.09 Other disorders of plasma-protein metabolism, not elsewhere classified; R00.0 Tachycardia, unspecified; I07.1 Rheumatic tricuspid insufficiency; D47.1 Chronic myeloproliferative disease; D45 Polycythemia vera; N18.30 Chronic kidney disease, stage 3 unspecified; D46.9 Myelodysplastic syndrome, unspecified; L27.1 Localized skin eruption due to drugs and medicaments taken internally; D61.9 Aplastic anemia, unspecified; J18.9 Pneumonia, unspecified organism; E55.9 Vitamin D deficiency, unspecified; Z85.118 Personal history of other malignant neoplasm of bronchus and lung; R07.89 Other chest pain; J96.11 Chronic respiratory failure with hypoxia; T36.1X5A Adverse effect of cephalosporins and other beta-lactam antibiotics, initial encounter